=== PATIENT | female | born 1940 | race Caucasian/White ===

== ENCOUNTER → 2016-04-26 | Outpatient (CLI) | payer MEDICARE ==
--- NOTE | 2016-04-30 09:35 | MM ---
Reason for exam: screening (asymptomatic). Last mammogram was performed 10 months ago. History: Patient is postmenopausal, has history of endometrial cancer at age 28, and history of other cancer. Family history of breast cancer in mother at age 80, breast cancer in maternal aunt at age 71, and breast cancer in maternal cousin at age 30. Benign stereotactic core biopsy of the right breast, March 19, 2002. Benign stereotactic core biopsy of the left breast, December 25, 1999. Cyst aspiration of the left breast. 2 core biopsies of the left breast. Core biopsy of the right breast. Excisional biopsy of the left breast. Excisional biopsy of the right breast. Physical Findings: A clinical breast exam by your physician is recommended on an annual basis and results should be correlated with mammographic findings. MG Screening Mammo w CAD Bilateral CC and MLO view(s) were taken. Prior study comparison: July 08, 2015, right breast MG 3d diag mammo w/cad RT. December 05, 2014, bilateral MG screening mammo w CAD. The breast tissue is extremely dense which could obscure a lesion on mammography. Finding: There are typically benign round calcifications. There is no discrete abnormality. No significant changes in finding since July 08, 2015 and December 05, 2014. ASSESSMENT: Benign, BI-RAD 2 RECOMMENDATION: Routine screening mammogram of both breasts in 1 year.
== END | disposition home or self-care (01) ==
LOC: RADMAMWWP 06:58
PROVIDERS: ATTEND Internal Medicine
DX: Z12.31 Encounter for screening mammogram for malignant neoplasm of breast (principal)

== ENCOUNTER → 2016-08-17 | Outpatient (CLI) | payer MEDICARE ==
[2016-08-17 07:23] LABS: Basophils % (A) 1 %; CHCM 33.6; Eosinophils # (A) 0.2 k/uL (0-0.7); Eosinophils % (A) 3 %; HCT 42.3 % (34.0-46.0); HDW 2.76; HGB 14.1 gm/dL (11.4-16.0); Luc # (Auto) 0.19; Luc % (Auto) 3; Lymphocytes # (A) 2.3 k/uL (1.0-4.8); Lymphocytes % (A) 42 %; MCH 29.9 pg (25.0-35.0); MCHC 33.2 g/dL (31.0-37.0); MCV 89.9 fL (80.0-100.0); Mean Platelet Volume 7.2; Monocytes # (A) 0.3 k/uL (0-1.0); Monocytes % (A) 6 %; Neutrophils # (A) 2.5 k/uL (1.3-7.7); Neutrophils % (A) 45 %; RBC 4.71 m/uL (3.80-5.40); RDW 13.9 % (11.5-15.5); WBC 5.4 k/uL (3.8-10.6); WBC (Perox) 5.52
[2016-08-17 07:55] LABS: ALT 23 U/L (9-52); AST 19 U/L (14-36); Alkaline Phosphatase 90 U/L (38-126); Anion Gap 10 mmol/L; Blood Urea Nitrogen 20 mg/dL (7-17); Calcium 9.7 mg/dL (8.4-10.2); Carbon Dioxide 24 mmol/L (22-30); Chloride 112 mmol/L (98-107); Cholesterol 156 mg/dL (<200); Glucose 119 mg/dL (74-99); HDL Cholesterol 53 mg/dL (40-60); Non-African American GFR(MDRD) >60 (>60 ml/min/1.73 sqM); Potassium 4.5 mmol/L (3.5-5.1); Sodium 146 mmol/L (137-145); Total Bilirubin 0.5 mg/dL (0.2-1.3); Total Protein 7.7 g/dL (6.3-8.2); Triglycerides 143 mg/dL (<150)
== END | disposition home or self-care (01) ==
LOC: LABWHC1 06:44
PROVIDERS: ATTEND Internal Medicine
DX: E78.5 Hyperlipidemia, unspecified (principal); I10 Essential (primary) hypertension
CPT/HCPCS: 36415; 80053; 80061; 84439; 84443; 85025

== ENCOUNTER → 2017-10-03 | Outpatient (CLI) | payer MEDICARE ==
--- NOTE | 2017-10-04 08:34 | CT ---
EXAMINATION TYPE: CT chest w con DATE OF EXAM: 10/03/2017 COMPARISON: Chest x-ray from 6 days ago HISTORY: Cough and left side pulmonary mass. CT DLP: 473 mGycm. Automated Exposure Control for Dose Reduction was Utilized. TECHNIQUE: CT scan of the thorax is performed following with IV Contrast, patient injected with 100m l mL of Isovue M300. FINDINGS: LUNGS: Underlying fairly moderate emphysematous changes present with scattered blebs predominantly gao bpleural in location in the bilateral upper lobes. Corresponding to x-ray abnormality there is small to tiny left pleural fluid collection. There is het erogeneous left infrahilar masslike consolidation/probable mass not related to hiatal hernia measurin g 5.8 x 4.2 cm axial image 35 with likely component of postobstructive atelectasis inferior and later al to this. Some central calcifications are seen axial image 32. Mass extends to left hilar level. No chest wall or pleural invasion is definitively seen. Right lung is clear. No additional suspicious n odules or masses are identified. No pneumothorax is seen bilaterally. Tracheobronchial tree is patent . MEDIASTINUM: There are no greater than 1 cm hilar or mediastinal lymph nodes. There are prominent bu t subcentimeter AP window and subcarinal lymph nodes. No cardiomegaly or pericardial effusion is see n. Coronary artery calcification is present which is noted marker for coronary artery disease. OTHER: There is mild to moderate compression type deformity at T6 level. Underlying S-shaped scoliosi s is present. Osseous structures are demineralized. Moderate multilevel spurring is seen. Exaggerated thoracic kyphosis is noted. Nonspecific 9 x 6 mm oval low dense lesion anterior upper abdominal wall axial image 59 is noted. There are healing fractures involving the posterior lateral right fifth thr ough seventh ribs IMPRESSION: 1. Suspicious left infrahilar masslike consolidation probable obstructing endobronchial neoplasm. Con clinical reimbursement specialist bronchoscopy for sampling. Consider PET/CT confirmation. 2. Background moderate underlying emphysematous change with healing posterior lateral right fifth thr ough seventh ribs noted.
== END | disposition home or self-care (01) ==
LOC: RADCTMAIN 15:54
PROVIDERS: ATTEND Internal Medicine
DX: J43.9 Emphysema, unspecified (principal)
CPT/HCPCS: 82565; 84520; 71260; Q9967

== ENCOUNTER → 2017-10-11 | Outpatient (CLI) | payer MEDICARE ==
[2017-10-11 07:34] LABS: Basophils % (A) 1 %; Eosinophils # (A) 0.1 k/uL (0-0.7); Eosinophils % (A) 2 %; HCT 36.2 % (34.0-46.0); HGB 11.1 gm/dL (11.4-16.0); Hypochromasia Slight; Lymphocytes # (A) 1.4 k/uL (1.0-4.8); Lymphocytes % (A) 17 %; MCH 25.7 pg (25.0-35.0); MCHC 30.6 g/dL (31.0-37.0); Mean Platelet Volume 7.1; Monocytes # (A) 0.4 k/uL (0-1.0); Monocytes % (A) 5 %; Neutrophils # (A) 6.3 k/uL (1.3-7.7); Neutrophils % (A) 75 %; Platelet Count 464 k/uL (150-450); RBC 4.31 m/uL (3.80-5.40); RDW 15.1 % (11.5-15.5); WBC 8.4 k/uL (3.8-10.6)
[2017-10-11 07:53] LABS: ALT 20 U/L (9-52); AST 14 U/L (14-36); Albumin 3.4 g/dL (3.5-5.0); Alkaline Phosphatase 127 U/L (38-126); Anion Gap 10 mmol/L; Blood Urea Nitrogen 14 mg/dL (7-17); Calcium 9.2 mg/dL (8.4-10.2); Carbon Dioxide 26 mmol/L (22-30); Chloride 108 mmol/L (98-107); Cholesterol 139 mg/dL (<200); Glucose 128 mg/dL (74-99); HDL Cholesterol 47 mg/dL (40-60); LDL Cholesterol,Calculated 80 mg/dL (0-99); Potassium 4.8 mmol/L (3.5-5.1); Sodium 144 mmol/L (137-145); Total Bilirubin 0.3 mg/dL (0.2-1.3); Total Protein 6.7 g/dL (6.3-8.2); Triglycerides 58 mg/dL (<150)
[2017-10-11 08:04] LABS: T4, Free (Free Thyroxine) 1.04 ng/dL (0.78-2.19)
== END | disposition home or self-care (01) ==
LOC: LABWHC1 06:41
PROVIDERS: ATTEND Internal Medicine
DX: Z00.00 Encounter for general adult medical examination without abnormal findings (principal); E78.5 Hyperlipidemia, unspecified; I10 Essential (primary) hypertension
CPT/HCPCS: 36415; 80053; 80061; 84439; 84443; 85025

== ENCOUNTER 2017-10-12 08:28 | Day surgery (SDC) | payer MEDICARE ==
[~2017-10-12 08:28] MED LIST: Pre Op ABX Message 1 EACH MISC MISCELLANE ONE
[2017-10-12] MEDS ORDERED: MIDAZOLAM 2 MG/2 ML VIAL ONE (11:11)
[2017-10-12] MEDS ORDERED: KETAMINE 10 MG/ML 20 ML VIAL ONE (11:11)
[2017-10-12] MEDS ORDERED: GLYCOPYRROLATE 0.2 MG/ML 2 ML VIAL ONE (11:11)
[2017-10-12] MEDS ORDERED: PROPOFOL 10 MG/ML 20 ML VIAL IV ONE (11:11)
[2017-10-12] MEDS ORDERED: LIDOCAINE 1% INJ 10MG/ML (20 ML MDV) ONE (11:11)
[2017-10-12] MEDS ORDERED: LIDOCAINE 1% INJ 10MG/ML (20 ML MDV) INTRATRACH ONE (11:35)
[2017-10-12] MEDS ORDERED: SODIUM CHLORIDE 0.9% 1,000 ML IV ONE (11:39)
[2017-10-12 12:19] VITALS: BP 130/51; PULSE 94; RESP 19
[2017-10-12] MEDS ORDERED: IV FLUID CONTINUATION 1,000 ML IV ONE (12:21)
--- NOTE | 2017-10-12 14:30 | PCN ---
PROCEDURE NOTE OPERATIVE REPORT: Bronchoscopy, endobronchial biopsy of left lower lobe, brushings, washings from the left lower lobe posterior segment. PREOPERATIVE DIAGNOSIS: Left lung mass. 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 ANESTHESIA USED: IV conscious sedation. PROCEDURE: The patient was prepared according to the bronchoscopy protocol. O2 was applied via nasal cannula. The patient was placed in a supine position, we monitored her O2 saturation continuously, blood pressure was intermittently monitored, and cardiac rhythm was continuously monitored. After adequate IV conscious sedation, the left nares was anesthetized, and the bronchoscope was inserted through the left naris down to the area of the vocal cords. 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 Then the bronchoscope was advanced further down below the vocal cords, though examination was done of the trachea, macho, right upper lobe, right middle lobe, left lower lobe. These were all patent. Then the left side was examined, the left upper lobe was noted to be normal. The lingula was normal including the superior segment and inferior segment. As we went down to the left lower lobe bronchus, there was evidence of endobronchial tumor noted in the posterior segment of the left lower lobe. Multiple endobronchial biopsies were taken of the tumor, brushings were done, washings, and lavage of the posterior segment of the left lower lobe was done. The fluid was sent for different diagnostic studies, brushings were sent for cytology, and the biopsy was sent to pathology. The procedure was well tolerated. Blood loss was negligible, and no evidence of any immediate complications. MMODL / IJN: [id number] /
[2017-10-13 03:36] LABS: Glucose,Whole Blood 106 mg/dL (75-99)
== END 2017-10-12 12:29 | disposition home or self-care (01) ==
LOC: ORWHC2ENDO 08:28
PROVIDERS: ATTEND Internal Medicine
DX: R91.8 Other nonspecific abnormal finding of lung field (principal); J38.3 Other diseases of vocal cords; J44.9 Chronic obstructive pulmonary disease, unspecified; I10 Essential (primary) hypertension; E78.2 Mixed hyperlipidemia; Z80.0 Family history of malignant neoplasm of digestive organs; Z80.3 Family history of malignant neoplasm of breast; Z80.6 Family history of leukemia; F17.210 Nicotine dependence, cigarettes, uncomplicated; Z79.82 Long term (current) use of aspirin; Z79.899 Other long term (current) drug therapy; Z88.8 Allergy status to other drugs, medicaments and biological substances
CPT/HCPCS: 88104; 88108; 88305; 87070; 87205; 31625; 31623; 31624; J2001; 94640

== ENCOUNTER → 2017-10-22 | Outpatient (CLI) | payer MEDICARE ==
--- NOTE | 2017-10-24 10:47 | PE ---
Nuclear medicine PET/CT HISTORY: Solitary pulmonary nodule, initial Patient received 11.4 mCi F-18 FDG intravenously in delayed scanning was performed from the skull bas e to the mid thighs. Localization and attenuation correction CT scan was performed. Correlation CT chest 10/03/2017 Neck and chest: No cervical adenopathy. There is a sizable left pleural effusion which may be loculat ed and has developed in the interval. Uptake is noted at the left hilar region, left lower lobe with SUV approximately 9-10, there is an air-fluid level, pockets of air present in the left lower lobe po ssibly due to necrotic tumor, difficult to exclude abscess. Emphysematous changes are noted incidenta lly. Coronary artery calcifications are present. Abdomen pelvis show no suspicious hypermetabolic uptake. There is no evident adrenal mass or retroper itoneal adenopathy. No liver mass. Postop changes are noted at the sigmoid colon. Uterus not seen. Osseous structures show nonunited fractures at the seventh and sixth ribs from old fracture of the fi fth rib on the right laterally. Multilevel uptake within the visualized thoracic and lumbar spine, pe lvis, SUV approximately 3-4, indeterminate. IMPRESSION: Findings compatible with lung carcinoma left lower lobe, interval pleural effusion and po ssible necrosis as described. Additional findings above.
== END | disposition home or self-care (01) ==
LOC: RADPETMAIN 07:20
PROVIDERS: ATTEND Internal Medicine
DX: J90 Pleural effusion, not elsewhere classified (principal); R91.8 Other nonspecific abnormal finding of lung field; S22.41XA Multiple fractures of ribs, right side, initial encounter for closed fracture; I25.10 Atherosclerotic heart disease of native coronary artery without angina pectoris
CPT/HCPCS: 78815; A9552

== ENCOUNTER 2017-10-26 09:34 | Inpatient (IN) | payer MEDICARE ==
[2017-10-26 10:46] LABS: Albumin 2.4 g/dL (3.5-5.0); Calcium 8.7 mg/dL (8.4-10.2); Potassium 3.7 mmol/L (3.5-5.1); Total Bilirubin 0.6 mg/dL (0.2-1.3); Total Protein 5.4 g/dL (6.3-8.2)
[2017-10-26 10:55] LABS: Anisocytosis Slight; Hypochromasia Moderate; Prothrombin Time 9.8 sec (9.0-12.0)
[2017-10-26 10:59] LABS: Partial Thromboplastin Time 20.1 sec (22.0-30.0)
[2017-10-26 11:07] LABS: HCT 34.8 % (34.0-46.0); HGB 10.9 gm/dL (11.4-16.0); MCH 26.1 pg (25.0-35.0); MCHC 31.3 g/dL (31.0-37.0); MCV 83.4 fL (80.0-100.0); Mean Platelet Volume 8.2; Platelet Count 570 k/uL (150-450); RBC 4.17 m/uL (3.80-5.40); RDW 16.4 % (11.5-15.5); WBC 23.7 k/uL (3.8-10.6)
--- NOTE | 2017-10-26 11:09 | XR ---
EXAMINATION TYPE: XR chest 2V DATE OF EXAM: 10/26/2017 COMPARISON: Prior chest x-ray 10/25/2017 and PET/CT 10/22/2017 HISTORY: Pleural effusion, difficulty breathing TECHNIQUE: Frontal and lateral views of the chest are obtained. FINDINGS: Findings similar to prior exam. Sizable left pleural effusion and associated atelectatic c hanges are present with associated mass left lower lobe. Air-fluid levels compatible with possible ne crosis of patient's tumor, difficult to exclude lung abscess. No evident pneumothorax. Old right-side d rib fractures are present, there is a spinal curvature. IMPRESSION: Findings compatible with patient's history of lung carcinoma, pleural effusion and atele ctasis.
[2017-10-26 11:37] LABS: Band Neutrophils % 2 %; Lymphocytes # (M) 1.66 k/uL (1.0-4.8); Monocytes # (M) 0.95 k/uL (0-1.0); Neutrophils % (M) 87 %; Nucleated Red Blood Cells 0 /100 WBC (0-0); Polychromasia Present; Total Cells Counted 100; Toxic Vacuolation Present
[2017-10-26 11:38] LABS: Poikilocytosis (M) Present
[2017-10-26] MEDS ORDERED: PIPERACILLIN-TAZOBACTAM 3.375 GM in DEXTROSE/WATER 1 50ML.BAG IVPB STA (12:27)
[2017-10-26] MEDS ORDERED: ALBUTEROL NEBULIZED 2.5 MG/3 ML INHALATION STA (12:34)
[2017-10-26] MEDS ORDERED: IPRATROPIUM 0.5 MG/2.5 ML NEBU INHALATION STA (12:35)
[2017-10-26] MEDS ORDERED: FUROSEMIDE 10 MG/ML 4 ML VIAL IV STA (12:35)
[2017-10-26] MEDS ORDERED: methylPREDNISolone SOD SUCCI 125 MG/2 ML VIAL IV STA (12:35)
[2017-10-26 12:37] LABS: Creatine Kinase <20 U/L (30-135)
[2017-10-26] MEDS ORDERED: IPRATROPIUM-ALBUTEROL 3 ML NEB INHALATION PRN (12:52)
--- NOTE | 2017-10-26 12:52 | ED ---
SOB HPI - General Chief Complaint: Shortness of Breath Stated Complaint: SOB Time Seen by Provider: 10/26/17 09:47 Source: patient Mode of arrival: wheelchair Limitations: no limitations - History of Present Illness Initial Comments: 77 years O female comes in with the shortness of breath unfortunately she has a lung cancer now she has a fluid on her lungs and she said Dr. Jacques or was supplemented to thoracentesis. She denies any chest pain right now she denies any pleuritic chest pain not sure about the fever high blood pressure has been low she said she been feeling generally weak and no abdominal pain no frequency urgency dysuria TIA - Related Data Home Medications Medication Instructions Recorded Confirmed Ezetimibe [Zetia] 10 mg PO DAILY 10/15/13 10/26/17 Albuterol Sulfate [Proair Hfa] 2 puff INHALATION RT-Q6H PRN 10/26/17 10/26/17 Aspirin EC [Ecotrin Low Dose] 81 mg PO HS 10/26/17 10/26/17 Gemfibrozil [Lopid] 600 mg PO AC-BID 10/26/17 10/26/17 Levofloxacin [Levaquin] 500 mg PO DAILY 10/26/17 10/26/17 amLODIPine [Norvasc] 10 mg PO DAILY 10/26/17 10/26/17 predniSONE See Taper PO DAILY 10/26/17 10/26/17 Allergies Allergy/AdvReac Type Severity Reaction Status Date / Time benazepril HCl [From Lotrel] Allergy Swelling Verified 10/26/17 10:13 Review of Systems ROS Statement: Those systems with pertinent positive or pertinent negative responses have been documented in the HPI. ROS Other: All systems not noted in ROS Statement are negative. Past Medical History Past Medical History: Hyperlipidemia, Hypertension Additional Past Medical History / Comment(s): possible lung ca History of Any Multi-Drug Resistant Organisms: None Reported Past Surgical History: Cholecystectomy, Hysterectomy Additional Past Surgical History / Comment(s): recent lung biopsy Past Psychological History: No Psychological Hx Reported Smoking Status: Former smoker Past Alcohol Use History: Occasional Past Drug Use History: None Reported General Exam - General Exam Comments Initial Comments: General: The patient is awake and alert, in mild distress from respiratory status as well as his 50 Skin: Skin is warm and dry and no rashes or lesions are noted. Eye: Pupils are equal, round and reactive to light, extra-ocular movements are intact; there is normal conjunctiva bilaterally. Ears, nose, mouth and throat: There are moist mucous membranes and no oral lesions. Neck: The neck is supple, there is no tenderness or JVD. Cardiovascular: There is a regular rate and rhythm Respiratory: To auscultation bilateral, severe COPD with some crackles Gastrointestinal: Soft, non-distended, non-tender abdomen without masses or organomegaly noted. There is no rebound or guarding present. Bowel sounds are unremarkable. Back: There is no tenderness to palpation in the midline. There is no obvious deformity. Musculoskeletal: Normal ROM, no tenderness, There is no pedal edema. There is no calf tenderness or swelling. No cords were appreciated. Neurological: CN II-XII intact, Cranial nerves III through XII are intact. There are no obvious motor or sensory deficits. Coordination appears grossly intact. Speech is normal. Psychiatric: Cooperative, appropriate mood & affect, normal judgment. Limitations: no limitations Course Vital Signs 10/26/17 10/26/17 10/26/17 09:41 11:43 12:28 Temperature 97.5 F L Pulse Rate 82 78 81 Respiratory 18 20 20 Rate Blood Pressure 92/57 97/53 101/56 O2 Sat by Pulse 93 L 95 92 L Oximetry KG is normal sinus ventricular rate is 84 CA interval is 144 QRS duration is 94 QT/QTc is 360/427 noticed some T-wave flattening in lead 1 noticed some artifact interfering with the interpretation no STEMI noticed Medical Decision Making - Lab Data Result diagrams: 10/26/17 10:25 10/26/17 10:25 Lab Results 10/26/17 10/26/17 10/26/17 Range/Units 10:25 10:25 10:25 WBC 23.7 H (3.8-10.6) k/uL RBC 4.17 (3.80-5.40) m/uL Hgb 10.9 L (11.4-16.0) gm/dL Hct 34.8 (34.0-46.0) % MCV 83.4 (80.0-100.0) fL MCH 26.1 (25.0-35.0) pg MCHC 31.3 (31.0-37.0) g/dL RDW 16.4 H (11.5-15.5) % Plt Count 570 H (150-450) k/uL Neutrophils % (Manual) 87 % Band Neutrophils % 2 % Lymphocytes % (Manual) 7 % Monocytes % (Manual) 4 % Neutrophils # (Manual) 21.00 H (1.3-7.7) k/uL Lymphocytes # (Manual) 1.66 (1.0-4.8) k/uL Monocytes # (Manual) 0.95 (0-1.0) k/uL Nucleated RBCs 0 (0-0) /100 WBC Manual Slide Review Performed Toxic Vacuolation Present Polychromasia Present Hypochromasia Moderate Poikilocytosis (manual Present Anisocytosis Slight PT 9.8 (9.0-12.0) sec INR 1.0 (<1.2) APTT 20.1 L (22.0-30.0) sec Sodium 142 (137-145) mmol/L Potassium 3.7 (3.5-5.1) mmol/L Chloride 110 H (98-107) mmol/L Carbon Dioxide 16 L (22-30) mmol/L Anion Gap 16 mmol/L BUN 50 H (7-17) mg/dL Creatinine 0.91 (0.52-1.04) mg/dL Est GFR (CKD-EPI)AfAm 70 (>60 ml/min/1.73 sqM) Est GFR (CKD-EPI)NonAf 61 (>60 ml/min/1.73 sqM) Glucose 192 H (74-99) mg/dL Calcium 8.7 (8.4-10.2) mg/dL Total Bilirubin 0.6 (0.2-1.3) mg/dL AST 28 (14-36) U/L ALT 32 (9-52) U/L Alkaline Phosphatase 215 H (38-126) U/L Total Protein 5.4 L (6.3-8.2) g/dL Albumin 2.4 L (3.5-5.0) g/dL Critical Care Time Total Critical Care Time: 30 Critical Care Time: Syringa respiratory status and now elevated white count there is a question of sepsis at that and supported with a low blood pressure as well she be getting broad-spectrum antibiotic after blood cultures and also noticed here to is a 16 consistent with a metabolic acidosis I discussed that with the Dr. Lona Zamorano recommended we admit him under Dr. Pratt and obviously he is can be consult patient be for patient was anticipating a thoracentesis by Dr. Jacques or for now to support her COPD she be getting IV steroids and inhaled steroids and inhaled bronchodilators Disposition Clinical Impression: Metabolic acidosis, Hypotension Disposition: ADMITTED IP TO THIS HOSP Condition: Good Referrals: Karol Jacques MD [Primary Care Provider] - 1-2 days
[2017-10-26 13:28] LABS: Creatine Kinase MB 1.6 ng/mL (0.0-2.4); Troponin I <0.012 ng/mL (0.000-0.034)
[2017-10-26 14:57] VITALS: BMI 29.2
[2017-10-26] MEDS ORDERED: DILTIAZEM 50 MG in SODIUM CHLORIDE 0.9% 40 ML IV SCH ×4 (16:15)
--- NOTE | 2017-10-26 16:31 | P.CNPUL ---
History of Present Illness Reason for consult: dyspnea, lung mass History of present illness: A 77-year-old female patient presented to MRSA problem because of worsening shortness of breath. No chest pain. No pleurisy. She felt feverish and she was progressively getting weak over the past few days. In the ED, the patient a temperature of 97.5, pulse rate of 81 which was pulse ox 92% on room air. Her white cell, was 23.7. TPN was up to 50 with a creatinine of 0.9. She was however in metabolic acidosis with a positive anion gap and her bicarb level was at 16. Chest x-ray revealed left lung capacity probably a combination of atelectatic changes along with a loculated left-sided pleural effusion. There is also some air-fluid levels compatible with necrotizing pneumonia/abscess formation. Old rib fractures were seen on the right. Patient was started on IV Zosyn and the patient was admitted to the floor and a pulmonary consultation was requested. I saw this patient in the oncology unit. The patient was found to be also nature fibrillation with rapid ventricular response. The patient will be scheduled to telemetry unit for Cardizem drip and rate control. A echo cardiac exam will also be ordered. This patient is known to our service and she follows up with Dr. Jacques outpatient patient basis. She is known to have COPD. The patient has an FEV1 of 1.48 L. She also has hypertension, mixed hyperlipidemia and most recently she was diagnosed having it, cell carcinoma of the lung. The patient was found to have a left lung mass on a chest x-ray that was on our office back in September 2017 and this was followed up by a CAT scan of the chest that showed a suspicious left infrahilar mass with obstruction/endobronchial narrowing in the left lower lobe and the mass was measuring 5.3 x 4.2 cm in size in addition to some atelectatic changes and left lung base. Based on this, a bronchoscopy was done and the endobronchial biopsies from the left lower lobe showed squamous cell carcinoma. The PET scan that was done for staging purposes on 10/22/2017 showed a sizable left-sided pleural effusion that was loculated along the left lateral chest area that had developed an interval compared to the previous CAT scan on 10/03/2017. There was also uptake noted in the left hilar region, left lower lobe with an SUV of 9-10. There was also air-fluid level and pockets of air present in the left lower lobe possibly due to necrotic tumor although the possibility of postobstructive pneumonia/abscess formation cannot be completely ruled out. Bilateral emphysematous changes were also noted. The patient also had nonunited fractures at the seventh and the sixth rib and the fifth rib on the right laterally. No other uptake within the skeletal system. Note that the patient was already seen at for a surgical evaluation and she was told that she was not a surgical candidate due to locally advanced disease. Review of Systems Constitutional: Denies weight loss, denies fatigue, no night sweats, no fever, no chills. Cardiovascular: Denies palpitations, denied chest pain or chest pressure, denies any edema. GI: Denies nausea vomiting abdominal pain diarrhea or constipation. Genitourinary: No dysuria and no frequency no urgency. She had previous history of UTI. Neurologic: Denies weakness, confusion, dizziness, or numbness. Musculoskeletal: Denies weakness arthralgia or myalgia Skin: Denies any skin lesions or rashes. Endocrine: No polydipsia, no polyuria, no heat or cold sensitivity. Pulmonary: As noted in HPI.Worsening shortness of breath as reported in the HPI Hematologic: No clotting bleeding or bruising Psychiatric: No symptoms of active depression Past Medical History Past Medical History: Cancer, GERD/Reflux, Hyperlipidemia, Hypertension, Osteoarthritis (OA), Skin Disorder Additional Past Medical History / Comment(s): Squamous for carcinoma of the lung , locally advanced at least stage III, left-sided pleural effusion, hyperlipidemia, hypertension, COPD, recurrent UTIs, history of psoriasis, colonic polyps, history of benign bilaterally breast lesions with previous lumpectomies, osteoarthritis History of Any Multi-Drug Resistant Organisms: None Reported Past Surgical History: Cholecystectomy, Hysterectomy Additional Past Surgical History / Comment(s): 10/13/17 bronchoscopy with BAL/bx/ brushings, partial colectomy, bilateral multiple breast lumpectomies/biopsies all benign, colonoscopy/benign polypectomy. Past Anesthesia/Blood Transfusion Reactions: No Reported Reaction Smoking Status: Former smoker - Past Family History Father Family Medical History: Cancer Additional Family Medical History / Comment(s): Father had leukemia. Mother Family Medical History: Cancer Additional Family Medical History / Comment(s): Mother had breast cancer. Sister(s) Family Medical History: Cancer Additional Family Medical History / Comment(s): Sister had colon cancer. Medications and Allergies Home Medications Medication Instructions Recorded Confirmed Type Ezetimibe [Zetia] 10 mg PO DAILY 10/15/13 10/26/17 History Albuterol Sulfate [Proair Hfa] 2 puff INHALATION RT-Q6H PRN 10/26/17 10/26/17 History Aspirin EC [Ecotrin Low Dose] 81 mg PO HS 10/26/17 10/26/17 History Gemfibrozil [Lopid] 600 mg PO AC-BID 10/26/17 10/26/17 History Levofloxacin [Levaquin] 500 mg PO DAILY 10/26/17 10/26/17 History amLODIPine [Norvasc] 10 mg PO DAILY 10/26/17 10/26/17 History predniSONE See Taper PO DAILY 10/26/17 10/26/17 History Allergies Allergy/AdvReac Type Severity Reaction Status Date / Time benazepril HCl [From Lotrel] Allergy Swelling Verified 10/26/17 10:13 Physical Exam Vitals: Vital Signs Temp Pulse Resp BP Pulse Ox 10/26/17 13:31 80 18 110/69 98 10/26/17 13:00 81 10/26/17 12:41 81 10/26/17 12:28 81 20 101/56 92 L 10/26/17 11:43 78 20 97/53 95 10/26/17 09:41 97.5 F L 82 18 92/57 93 L Intake and Output 10/25/17 10/26/17 10/26/17 22:59 06:59 14:59 Other: Weight 68 kg Appearance, comfortable no acute distress HEENT: Anicteric sclerae, pink and moist conjunctivae. Extraocular movements intact, pupils are reactive to light they are round and equal. External inspection of ears and nose showed normal mucosa. Oral mucosa, soft and hard palate tongue and posterior pharynx are intact. Neck: Supple no neck masses, no JVD, no thyroid enlargement, no adenopathy. Lungs: Symmetrical expansion,Diminished breath sounds and dullness at the left base CVS: Regular rate and rhythm, normal S1 and S2, no gallops, no murmur, no rubs. Abdomen: Soft, nontender, no megaly, no rebound, no guarding, positive bowel sounds. Extremities: No clubbing, no edema, no cyanosis, 2+ pulses in upper and lower extremities. Musculoskeletal: Muscle strength and tone normal. Neurologic: Alert and oriented 3, normal affect, no focal neurologic deficits. Examination of the skin revealed no evidence of significant rashes, suspicious appearing nevi or other concerning lesions. Results - Laboratory Findings CBC and BMP: 10/26/17 10:25 10/26/17 10:25 PT/INR, D-dimer PT 9.8 sec (9.0-12.0) 10/26/17 10:25 INR 1.0 (<1.2) 10/26/17 10:25 Abnormal lab findings: Abnormal Labs 10/26/17 10/26/17 10/26/17 10:25 10:25 10:25 WBC 23.7 H Hgb 10.9 L RDW 16.4 H Plt Count 570 H Neutrophils # (Manual) 21.00 H APTT Chloride 110 H Carbon Dioxide 16 L BUN 50 H Glucose 192 H Alkaline Phosphatase 215 H Total Creatine Kinase <20 L Total Protein 5.4 L Albumin 2.4 L 10/26/17 10:25 WBC Hgb RDW Plt Count Neutrophils # (Manual) APTT 20.1 L Chloride Carbon Dioxide BUN Glucose Alkaline Phosphatase Total Creatine Kinase Total Protein Albumin - Diagnostic Findings Chest x-ray: image reviewed CT scan - chest: image reviewed Assessment and Plan Plan: Assessment 1 squamous cell carcinoma of the lung, TNM stage III at least, This is a recent diagnosis was established few weeks back and a follow-up PET scan showed significant progression with development of worsening left lower lobe consolidation, air fluid level and a loculated pleural effusion on the left lateral chest area. Rule out postobstructive pneumonia with abscess formation and a parapneumonic effusion. Rule out necrosis related to malignancy with malignant pleural effusion. Note that the patient's PET scan was compared to the previous CAT scan that was done 3 weeks ago in September 2017 and there is obvious progression suspicious for the above-mentioned possibilities. Currently on IV Zosyn. Infection is also favored as the patient has developed some leukocytosis and anion gap metabolic acidosis 2 COPD with FEV1 of 1.4 L at baseline 3 new onset atrial fibrillation with rapid ventricular response 3 acute hypoxic respiratory failure secondary to above 5 hyperlipidemia 6 hypertension 7 endobronchial tumor occupying the posterior segment of the left lower lobe, raising the suspicion for a development of a post obstructive pneumonia/abscess formation. 8 leukocytosis secondary to above Plan Continue IV Zosyn and Levaquin. DuoNeb about treatments around the clock. Sputum Gram stain and culture. Transfer this patient to telemetry and start the patient a Cardizem drip for rate control. Obtain echocardiogram. Start bicarb drip at 75 mL an hour and monitor the bicarb levels. May need another bronchoscopy. The pleural fluid itself is loculated. We'll discuss the feasibility of doing a ultrasound-guided thoracentesis of the lung. Left-sided pleural effusion with interventional radiology for diagnostic and therapeutic purposes. Stopped IV Solu-Medrol. We'll continue to follow. Prognosis poor.
[2017-10-26] MEDS ORDERED: SODIUM CHLORIDE 0.9% 500 ML IV ONE (16:59)
[2017-10-26] MEDS ORDERED: methylPREDNISolone SOD SUCCI 125 MG/2 ML VIAL IV SCH (18:00)
[2017-10-26] MEDS: LEVOFLOXACIN 500 MG TAB PO SCH (19:17)
[2017-10-26] MEDS: WATER FOR INJECTION, STERILE 1,000 ML with SODIUM ACETATE 150 MEQ IV SCH ×2 (19:46)
[2017-10-26] MEDS: HEPARIN SOD,PORK IN 0.45% NACL 25,000 UNIT in 0.45% NACL 1 500ML.BAG IV SCH (20:24)
[2017-10-26] MEDS: BUDESONIDE 0.5 MG/2 ML NEBU INHALATION SCH (20:36)
[2017-10-26] MEDS: ALPRAZolam 0.25 MG TAB PO PRN (21:07)
[2017-10-26] MEDS: LACTULOSE 20 GM/30 ML CUP PO PRN (21:07)
[2017-10-26] MEDS: GEMFIBROZIL 600 MG TAB PO SCH (21:08)
[2017-10-26] MEDS ORDERED: ONDANSETRON 4 MG/2 ML VIAL IVP PRN (21:08)
[2017-10-26] MEDS: ASPIRIN 81 MG PO SCH (21:08)
[2017-10-26] MEDS: PIPERACILLIN-TAZOBACTAM 3.375 GM in DEXTROSE/WATER 1 50ML.BAG IVPB SCH (21:10)
[2017-10-26] MEDS: amLODIPine 10 MG TAB PO SCH (22:23)
[2017-10-27] MEDS: PIPERACILLIN-TAZOBACTAM 3.375 GM in DEXTROSE/WATER 1 50ML.BAG IVPB SCH ×3 (03:56→20:27)
[2017-10-27] MEDS: GEMFIBROZIL 600 MG TAB PO SCH ×2 (06:31→18:00)
[2017-10-27] MEDS: BUDESONIDE 0.5 MG/2 ML NEBU INHALATION SCH ×2 (08:02→20:35)
[2017-10-27] MEDS: WATER FOR INJECTION, STERILE 1,000 ML with SODIUM ACETATE 150 MEQ IV SCH ×4 (09:31→20:47)
[2017-10-27] MEDS: EZETIMIBE 10 MG TAB PO SCH (09:32)
[2017-10-27] MEDS: amLODIPine 10 MG TAB PO SCH (09:32)
--- NOTE | 2017-10-27 09:36 | P.CRDCN ---
History of Present Illness Consult date: 10/27/17 Requesting physician: Warren Pratt Consult reason: atrial fibrillation Chief complaint: Shortness of breath History of present illness: This is a pleasant 77-year-old female with a history of hyperlipidemia , hypertension, recent diagnosis of lung cancer, more than 60 year pack per day smoker, history of diverticulitis with a partial colectomy, GERD, presents to the hospital on this occasion with symptoms of shortness of breath. According to the patient, she follows with Dr. Guerrero in the office, and he had mentioned something about a possible thoracentesis. Her chest x-ray on admission revealed findings compatible with patient's history of lung carcinoma, pleural effusion and atelectasis. There is a sizable left pleural effusion noted. EKG on admission here showed a normal sinus rhythm with nonspecific ST-T wave changes. An EKG showed atrial fibrillation with a rapid ventricular response. This morning the patient is back in a normal sinus rhythm. Occasional PVCs and PACs are noted. Patient denies any prior history of atrial fibrillation. At pressure on arrival here 92/50 with a heart rate in the 80s, 93% on room air. Blood pressure this morning 126/66 with a heart rate in the 80s, 93% on 2 L of oxygen. White blood cell count 23.7, hemoglobin 10.9, platelet count 570. Sodium 142, potassium 3.7, BUN 50, creatinine 0.9. Troponin 0.012. BNP level 1700. At the time of my examination this morning, patient is quite short of breath, she just returned from going to the bathroom. She denies any palpitations, no chest discomfort. 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 Past Anesthesia/Blood Transfusion Reactions: No Reported Reaction Smoking Status: Former smoker - Past Family History Father Family Medical History: Cancer Additional Family Medical History / Comment(s): Father had leukemia. Mother Family Medical History: Cancer Additional Family Medical History / Comment(s): Mother had breast cancer. Sister(s) Family Medical History: Cancer Additional Family Medical History / Comment(s): Sister had colon cancer. Medications and Allergies Home Medications Medication Instructions Recorded Confirmed Type Ezetimibe [Zetia] 10 mg PO DAILY 10/15/13 10/26/17 History Albuterol Sulfate [Proair Hfa] 2 puff INHALATION RT-Q6H PRN 10/26/17 10/26/17 History Aspirin EC [Ecotrin Low Dose] 81 mg PO HS 10/26/17 10/26/17 History Gemfibrozil [Lopid] 600 mg PO AC-BID 10/26/17 10/26/17 History Levofloxacin [Levaquin] 500 mg PO DAILY 10/26/17 10/26/17 History amLODIPine [Norvasc] 10 mg PO DAILY 10/26/17 10/26/17 History predniSONE See Taper PO DAILY 10/26/17 10/26/17 History Allergies Allergy/AdvReac Type Severity Reaction Status Date / Time benazepril HCl [From Lotrel] Allergy Swelling Verified 10/26/17 10:13 Physical Exam Vitals: Vital Signs Temp Pulse Pulse Resp BP BP Pulse Ox 10/27/17 08:20 92 10/27/17 08:05 88 95 10/27/17 04:00 97.0 F L 86 18 127/66 93 L 10/27/17 00:00 97.4 F L 83 18 107/63 92 L 10/26/17 20:00 97.0 F L 144 H 18 105/45 96 10/26/17 16:00 97.1 F L 143 H 20 85/50 94 L 10/26/17 15:20 143 H 18 10/26/17 13:31 80 18 110/69 98 10/26/17 13:00 81 10/26/17 12:41 81 10/26/17 12:28 81 20 101/56 92 L 10/26/17 11:43 78 20 97/53 95 10/26/17 09:41 97.5 F L 82 18 92/57 93 L Intake and Output 10/26/17 10/27/17 10/27/17 22:59 06:59 14:59 Intake Total 943.273 Balance 943.273 Intake: Intake, IV Titration 943.273 Amount Diltiazem 50 mg In Sodium 11.417 Chloride 0.9% 40 ml @ Per Protocol IV .Q0M [facility] Rx#:[id number] Heparin Sod,Pork in 0.45% 121.856 NaCl 25,000 unit In 0.45 % NaCl 1 500ml.bag @ 12 UNITS/KG/HR 16.32 mls/hr IV .Q24H [facility] Rx#: [id number] Piperacillin-Tazobactam 3 50 .375 gm In Dextrose/Water 1 50ml.bag @ 12.5 mls/hr IVPB Q8H [facility] Rx#: [id number] Sodium Chloride 0.9% 500 160 ml @ 999 mls/hr IV .Q31M [facility] Rx#:[id number] Water For Injection, 600 Sterile 1,000 ml @ 75 mls /hr IV .[id number] [facility] with Sodium Acetate 150 meq Rx #:[id number] Other: Voiding Method Toilet Toilet # Voids 2 Weight 59.6 kg PHYSICAL EXAMINATION: GENERAL: 77-year-old female in mild distress with her breathing this morning. HEENT: Head is atraumatic, normocephalic. Pupils equal, round. Sclera anicteric. Conjunctiva are clear. Mucous membranes of the mouth are moist. Neck is supple. There is no elevated jugular venous pressure.] bruit is heard. HEART EXAMINATION: Heart S1, S2 normal. No murmur or gallop heard. CHEST EXAMINATION: Lungs reveal scattered coarse wheezing with diminished air entry left greater than right. ABDOMEN: Soft, nontender. Bowel sounds are heard. No organomegaly noted. EXTREMITIES: 2+ peripheral pulses with trace evidence of peripheral edema and no calf tenderness noted. NEUROLOGIC patient is awake, alert and oriented ?-3. . Results 10/26/17 10:25 10/26/17 10:25 Cardiac Enzymes 10/26/17 10/26/17 Range/Units 10:25 10:25 AST 28 (14-36) U/L CK-MB (CK-2) 1.6 (0.0-2.4) ng/mL Troponin I <0.012 (0.000-0.034) ng/mL Coagulation 10/26/17 10/27/17 Range/Units 10:25 02:52 PT 9.8 (9.0-12.0) sec APTT 20.1 L 22.5 (22.0-30.0) sec CBC 10/26/17 Range/Units 10:25 WBC 23.7 H (3.8-10.6) k/uL RBC 4.17 (3.80-5.40) m/uL Hgb 10.9 L (11.4-16.0) gm/dL Hct 34.8 (34.0-46.0) % Plt Count 570 H (150-450) k/uL Comprehensive Metabolic Panel 10/26/17 Range/Units 10:25 Sodium 142 (137-145) mmol/L Potassium 3.7 (3.5-5.1) mmol/L Chloride 110 H (98-107) mmol/L Carbon Dioxide 16 L (22-30) mmol/L BUN 50 H (7-17) mg/dL Creatinine 0.91 (0.52-1.04) mg/dL Glucose 192 H (74-99) mg/dL Calcium 8.7 (8.4-10.2) mg/dL AST 28 (14-36) U/L ALT 32 (9-52) U/L Alkaline Phosphatase 215 H (38-126) U/L Total Protein 5.4 L (6.3-8.2) g/dL Albumin 2.4 L (3.5-5.0) g/dL Current Medications Generic Name Dose Route Start Last Admin Trade Name Freq PRN Reason Stop Dose Admin Albuterol/Ipratropium 3 ml 10/26/17 12:52 10/27/17 08:02 Duoneb 0.5 Mg-3 Mg/3 Ml Soln INHALATION 3 ml RT-Q4H PRN Administration Shortness Of Breath Or Wheezing Alprazolam 0.25 mg 10/26/17 20:42 10/26/17 21:07 Xanax PO 0.25 mg TID PRN Administration Agitation or Acute Anxiety Amlodipine Besylate 10 mg 10/26/17 17:15 10/26/17 22:23 Norvasc PO Not Given DAILY [facility] Aspirin 81 mg 10/26/17 21:00 10/26/17 21:08 Aspirin PO 81 mg HS [facility] Administration Budesonide 0.5 mg 10/26/17 20:00 10/27/17 08:02 Pulmicort INHALATION 0.5 mg RT-BID [facility] Administration Ezetimibe 10 mg 10/27/17 09:00 Zetia PO DAILY [facility] Gemfibrozil 600 mg 10/26/17 17:30 10/27/17 06:31 Lopid PO 600 mg AC-BID [facility] Administration Piperacillin/Tazobactam/ 50 mls @ 12.5 mls/hr 10/26/17 20:00 10/27/17 03:56 Dextrose 3.375 gm/ IV Solution IVPB 12.5 mls/hr Q8H [facility] Administration Diltiazem HCl 50 mg/ Sodium 50 mls @ 0 mls/hr 10/26/17 16:15 10/26/17 23:30 Chloride IV 0 mg/hr .Q0M [facility] 0 mls/hr Titration Protocol Per Protocol Sodium Acetate 150 meq/ 1,075 mls @ 75 mls/hr 10/26/17 17:00 10/26/17 19:46 Sterile Water IV 75 mls/hr .[id number] [facility] Administration Heparin Sodium/Sodium Chloride 500 mls @ 16.32 mls/hr 10/26/17 19:45 03:52 25,000 unit/ Sodium Chloride IV 15 units/kg/hr .Q24H [facility] 20.4 mls/hr Titration Protocol 12 UNITS/KG/HR Lactulose 20 gm 10/26/17 20:43 10/26/17 21:07 Cephulac PO 20 gm DAILY PRN Administration Constipation Levofloxacin 500 mg 10/26/17 14:00 10/26/17 19:17 Levaquin PO 11/04/17 14:01 500 mg DAILY@1400 [facility] Administration Ondansetron HCl 4 mg 10/26/17 21:08 Zofran IVP Q6HR PRN Nausea And Vomiting Intake and Output 10/26/17 10/27/17 10/27/17 22:59 06:59 14:59 Intake Total 943.273 Balance 943.273 Intake: Intake, IV Titration 943.273 Amount Diltiazem 50 mg In Sodium 11.417 Chloride 0.9% 40 ml @ Per Protocol IV .Q0M [facility] Rx#:[id number] Heparin Sod,Pork in 0.45% 121.856 NaCl 25,000 unit In 0.45 % NaCl 1 500ml.bag @ 12 UNITS/KG/HR 16.32 mls/hr IV .Q24H [facility] Rx#: [id number] Piperacillin-Tazobactam 3 50 .375 gm In Dextrose/Water 1 50ml.bag @ 12.5 mls/hr IVPB Q8H [facility] Rx#: [id number] Sodium Chloride 0.9% 500 160 ml @ 999 mls/hr IV .Q31M [facility] Rx#:[id number] Water For Injection, 600 Sterile 1,000 ml @ 75 mls /hr IV .[id number] [facility] with Sodium Acetate 150 meq Rx #:[id number] Other: Voiding Method Toilet Toilet # Voids 2 Weight 59.6 kg 10/26/17 10:25 10/26/17 10:25 EKG Interpretations (text) Initial EKG showed normal sinus rhythm with nonspecific ST-T wave changes. Subsequent EKG showed atrial fibrillation with a rapid ventricular response. Assessment and Plan Plan: Assessment and plan #1 atrial fibrillation with rapid ventricular response, new onset, paroxysmal. Patient is currently on IV heparin and Cardizem. #2 new diagnosis of lung cancer #3 left pleural effusion #4 hypertension #5 hyperlipidemia #6 GERD #7 greater than 60 year one pack per day smoking history #8 diverticulitis with partial colectomy Plan We will obtain an echocardiogram with Doppler study. Discontinue IV Cardizem, discontinue Norvasc, start the patient on verapamil by mouth. I also discussed with the patient the need for anticoagulation for stroke prevention. We will look into one of the newer anticoagulants. We will also E4 and TSH level. Further recommendations to follow. DNP note has been reviewed, I agree with a documented findings and plan of care. Patient was seen and examined.
[2017-10-27] MEDS: VERAPAMIL 40 MG TAB PO SCH ×3 (10:23→20:34)
[2017-10-27] MEDS: ALPRAZolam 0.25 MG TAB PO PRN ×2 (11:42→17:56)
[2017-10-27 11:53] LABS: LDH 795 U/L (313-618); Total Protein 5.4 g/dL (6.3-8.2)
[2017-10-27] MEDS: IPRATROPIUM-ALBUTEROL 3 ML NEB INHALATION SCH ×4 (12:00→23:35)
--- NOTE | 2017-10-27 12:20 | P.PN ---
Subjective Progress Note Date: 10/27/17 Principal diagnosis: Squamous cell carcinoma of the lung, TNM stage III with postobstructive pneumonia and pleural effusion. A 77-year-old female patient presented to MRSA problem because of worsening shortness of breath. No chest pain. No pleurisy. She felt feverish and she was progressively getting weak over the past few days. In the ED, the patient a temperature of 97.5, pulse rate of 81 which was pulse ox 92% on room air. Her white cell, was 23.7. TPN was up to 50 with a creatinine of 0.9. She was however in metabolic acidosis with a positive anion gap and her bicarb level was at 16. Chest x-ray revealed left lung capacity probably a combination of atelectatic changes along with a loculated left-sided pleural effusion. There is also some air-fluid levels compatible with necrotizing pneumonia/abscess formation. Old rib fractures were seen on the right. Patient was started on IV Zosyn and the patient was admitted to the floor and a pulmonary consultation was requested. I saw this patient in the oncology unit. The patient was found to be also nature fibrillation with rapid ventricular response. The patient will be scheduled to telemetry unit for Cardizem drip and rate control. A echo cardiac exam will also be ordered. This patient is known to our service and she follows up with Dr. Jacques outpatient patient basis. She is known to have COPD. The patient has an FEV1 of 1.48 L. She also has hypertension, mixed hyperlipidemia and most recently she was diagnosed having it, cell carcinoma of the lung. The patient was found to have a left lung mass on a chest x-ray that was on our office back in September 2017 and this was followed up by a CAT scan of the chest that showed a suspicious left infrahilar mass with obstruction/endobronchial narrowing in the left lower lobe and the mass was measuring 5.3 x 4.2 cm in size in addition to some atelectatic changes and left lung base. Based on this, a bronchoscopy was done and the endobronchial biopsies from the left lower lobe showed squamous cell carcinoma. The PET scan that was done for staging purposes on 10/22/2017 showed a sizable left-sided pleural effusion that was loculated along the left lateral chest area that had developed an interval compared to the previous CAT scan on 10/03/2017. There was also uptake noted in the left hilar region, left lower lobe with an SUV of 9-10. There was also air-fluid level and pockets of air present in the left lower lobe possibly due to necrotic tumor although the possibility of postobstructive pneumonia/abscess formation cannot be completely ruled out. Bilateral emphysematous changes were also noted. The patient also had nonunited fractures at the seventh and the sixth rib and the fifth rib on the right laterally. No other uptake within the skeletal system. Note that the patient was already seen at [facility] for a surgical evaluation and she was told that she was not a surgical candidate due to locally advanced disease. The patient is seen today 10/27/2017 in follow-up on the selective care unit. She had an episode of atrial fibrillation with rapid ventricular response yesterday, treated with verapamil and IV heparin. She is currently in sinus rhythm with frequent PACs. She is feeling slightly better today as compared to yesterday. Her O2 saturation is remaining in the 90s on 2 L/m per nasal cannula. She's been afebrile. She remains on Zosyn and Levaquin. Objective - Vital Signs Vital signs: Vital Signs Temp 97.3 F L 10/27/17 08:00 Pulse 92 10/27/17 08:20 Resp 18 10/27/17 08:00 BP 111/47 10/27/17 08:00 Pulse Ox 95 10/27/17 08:05 Intake & Output 10/26/17 10/27/17 10/27/17 18:59 06:59 18:59 Intake Total 943.273 Output Total 400 Balance 943.273 -400 Weight 68 kg 59.6 kg Intake: Intake, IV Titration 943.273 Amount Diltiazem 50 mg In Sodium 11.417 Chloride 0.9% 40 ml @ Per Protocol IV .Q0M [facility] Rx#:[id number] Heparin Sod,Pork in 0.45% 121.856 NaCl 25,000 unit In 0.45 % NaCl 1 500ml.bag @ 12 UNITS/KG/HR 16.32 mls/hr IV .Q24H [facility] Rx#: [id number] Piperacillin-Tazobactam 3 50 .375 gm In Dextrose/Water 1 50ml.bag @ 12.5 mls/hr IVPB Q8H [facility] Rx#: [id number] Sodium Chloride 0.9% 500 160 ml @ 999 mls/hr IV .Q31M [facility] Rx#:[id number] Water For Injection, 600 Sterile 1,000 ml @ 75 mls /hr IV .[id number] [facility] with Sodium Acetate 150 meq Rx #:[id number] Output: Urine 400 Other: Voiding Method Toilet Toilet # Voids 2 - Exam Appearance, comfortable no acute distress HEENT: Anicteric sclerae, pink and moist conjunctivae. Extraocular movements intact, pupils are reactive to light they are round and equal. External inspection of ears and nose showed normal mucosa. Oral mucosa, soft and hard palate tongue and posterior pharynx are intact. Neck: Supple no neck masses, no JVD, no thyroid enlargement, no adenopathy. Lungs: Symmetrical expansion,Diminished breath sounds and dullness at the left base CVS: Regular rate and rhythm, normal S1 and S2, no gallops, no murmur, no rubs. Abdomen: Soft, nontender, no megaly, no rebound, no guarding, positive bowel sounds. Extremities: No clubbing, no edema, no cyanosis, 2+ pulses in upper and lower extremities. Musculoskeletal: Muscle strength and tone normal. Neurologic: Alert and oriented 3, normal affect, no focal neurologic deficits. Examination of the skin revealed no evidence of significant rashes, suspicious appearing nevi or other concerning lesions. - Labs CBC & Chem 7: 10/26/17 10:25 10/26/17 10:25 Labs: Abnormal Lab Results - Last 24 Hours (Table) 10/26/17 10/27/17 10/27/17 Range/Units 10:25 02:52 10:37 APTT >200.0 H* (22.0-30.0) sec Lactate Dehydrogenase 795 H (313-618) U/L Total Creatine Kinase <20 L (30-135) U/L Total Protein 5.4 L (6.3-8.2) g/dL Assessment and Plan Assessment: Assessment 1 squamous cell carcinoma of the lung, TNM stage III at least, This is a recent diagnosis was established few weeks back and a follow-up PET scan showed significant progression with development of worsening left lower lobe consolidation, air fluid level and a loculated pleural effusion on the left lateral chest area. Rule out postobstructive pneumonia with abscess formation and a parapneumonic effusion. Rule out necrosis related to malignancy with malignant pleural effusion. Note that the patient's PET scan was compared to the previous CAT scan that was done 3 weeks ago in September 2017 and there is obvious progression suspicious for the above-mentioned possibilities. Currently on IV Zosyn. Infection is also favored as the patient has developed some leukocytosis and anion gap metabolic acidosis 2 COPD with FEV1 of 1.4 L at baseline 3 new onset atrial fibrillation with rapid ventricular response 3 acute hypoxic respiratory failure secondary to above 5 hyperlipidemia 6 hypertension 7 endobronchial tumor occupying the posterior segment of the left lower lobe, raising the suspicion for a development of a post obstructive pneumonia/abscess formation. 8 leukocytosis secondary to above Plan The patient was seen and evaluated by Dr. Zamorano. He plans to discuss the patient's chest x-ray and recent computed tomography scan with Dr. Mark from interventional radiology to determine if she may benefit from a pigtail catheter placement. She would also benefit from a repeat bronchoscopy that may be performed tomorrow. In the interim we'll continue with her current medications. Labs are pending need to check the bicarb level today. Her overall prognosis is quite poor. He did have discussions with both the patient and her is at the bedside regarding the plan. We will continue to follow. I, the cosigning physician, performed a history & physical examination of the patient. Lungs sounds with few scattered rhonchi, crackles in the left lung, diminished. Maintaining good O2 saturations in the 90s on 2 L/m per nasal cannula. I discussed the assessment and plan of care with my nurse practitioner , Meghana Cruz. I attest to the above note as dictated by her.
--- NOTE | 2017-10-27 12:45 | HP ---
HISTORY AND PHYSICAL DATE OF ADMISSION: 10/26/2017 DATE OF SERVICE: 10/27/2017 PRESENTING COMPLAINT: Short of breath, cough. HISTORY OF PRESENTING COMPLAINT: This is a pleasant 77-year-old patient who follows with Dr. Jacques. is present with her. Chronic stable medical conditions include GERD, hypertension, hyperlipidemia, osteoarthritis, psoriasis. About 5 weeks ago, patient was diagnosed to have a lung mass. Subsequently, Dr. Jacques did a bronchoscopy, followed by PET scan. Squamous cell carcinoma was diagnosed. Patient was sent down to [facility] for a possible lobectomy. It was felt at this point she was not a surgical candidate. Options were to maybe put a stent because of collapsed left lower lobe. Patient was due for further followup. In the meantime, patient for last 2 weeks has been increasingly short of breath, cough, brown-colored phlegm, low-grade fever, decreased appetite, weak, tired, run down and finally decided to present to the ER yesterday. Chest x-ray showed an air-fluid level. Patient admitted to the medical floor. Subsequently, patient is found to be in atrial fibrillation with rapid ventricular rate. Transferred to the cardiology floor. Patient was then put on a Cardizem drip. Around midnight, patient did convert to sinus rhythm. Patient also started on IV Zosyn. Patient is extremely tired and run down and worn out. REVIEW OF SYSTEMS: CONSTITUTIONAL: Weak, tired, loss of appetite. HEENT: None. RESPIRATORY: As above. Wheezing, cough. CARDIOVASCULAR: None. GASTROINTESTINAL: Heartburn. GENITOURINARY: None. MUSCULOSKELETAL: Arthritic pain in joints. DERMATOLOGICAL: None. HEMATOLOGICAL: None. LYMPHATIC: None. PSYCHIATRY: A bit anxious. NEUROLOGICAL: None. PAST MEDICAL HISTORY: GERD, hyperlipidemia, hypertension, osteoarthritis, skin disorder, squamous cell cancer of the lung, locally advanced, left-sided pleural effusion, hyperlipidemia, hypertension, COPD, recurrent UTIs, psoriasis, colonic polyp, bilateral breast lesions, lumpectomies. PAST SURGICAL HISTORY: Cholecystectomy, hysterectomy. SOCIAL HISTORY: Lives with her . Smoked for 58 years about at least a pack a day, stopped about 2 - 3 weeks ago. Drinks maybe a glass of wine at night. FAMILY HISTORY: Father had leukemia. HOME MEDICATIONS: 1. Prednisone taper. 2. Norvasc 10 mg a day. 3. Levaquin 500 mg a day. 4. Lopid 600 mg b.i.d. 5. Zetia 10 mg a day. 6. Aspirin 81 mg a day. 7. ProAir 2 puffs q.6 p.r.n. ALLERGIES: To BENAZEPRIL. PHYSICAL EXAMINATION: Vital signs on presentation, temperature 97.5 pulse 72, respiratory 18, blood pressure 92/57, pulse ox 93% on room air. GENERAL APPEARANCE: Average build, lying in bed, rather exhausted appearing. EYES: Pupils equal, conjunctivae are pale. HEENT: External appearance of nose and ears normal, oral cavity normal. NECK: JVD not raised. Mass not palpable. RESPIRATORY: Effort increased. LUNGS: Diminished breath sounds. Prolonged expiratory wheezing. Coarse breath sounds on the right side. CARDIOVASCULAR: First and second sounds normal, no edema. ABDOMEN: Soft, nontender. Liver and spleen not palpable. LYMPHATIC: No lymph node palpable in neck or axillae. PSYCHIATRY: Alert and oriented x3. Mood and affect slightly low. NEUROLOGICAL: Pupils equal. Cranial nerves grossly intact. Power and sensation grossly intact. INVESTIGATIONS: White count 23.7, hemoglobin 10.9, platelets 570, potassium 3.7, bicarb 16, BUN 50, creatinine 0.91, albumin 2.4. TSH 1.090. EKG tracing interpreted by me shows sinus rhythm with some nonspecific ST-segment changes. Chest x-ray film interpreted by me shows a gastric bubble, possible left lobe collapse. There may be an abscess with an air-fluid level. ASSESSMENT: 1. Was done in the clinical, radiological and context of the labs above. 2. Squamous cell cancer, recently diagnosed. Patient not felt to be a surgical candidate at this point. There may be associated left lower lung collapse and there may be an associated abscess within an air-fluid level. Will discuss with Dr. Zamorano if patient may be better served at [facility], if a stent can be placed. Of course, other option is to drain the abscess locally at the hospital here. Patient is already on antibiotics in form of Zosyn and Levaquin. 3. Possible lung abscess left lower lobe. 4. Gastroesophageal reflux disease. 5. Hyperlipidemia. 6. Essential hypertension. 7. Primary osteoarthritis. 8. Acute chronic obstructive pulmonary disease exacerbation in an ex-smoker. 9. Possible left pleural effusion, malignant. 10.New onset atrial fibrillation with rapid ventricular rate, now converted to sinus rhythm after which patient was on IV Cardizem. PLAN: Care was discussed with the at the bedside. Will discuss with Dr. Zamorano. In the meantime, patient is on an antibiotics and also add bronchodilators and IV steroids. Patient also is on Cardizem drip, did convert to sinus rhythm. Was put on verapamil. Consultation to Dr. Zamorano and Cardiology withstanding. MMODL / IJN: [id number] /
[2017-10-27] MEDS: methylPREDNISolone SOD SUCCI 40 MG/ML 1 ML VIAL IV SCH ×2 (12:53→20:27)
[2017-10-27 12:55] LABS: Anisocytosis Slight; HCT 37.1 % (34.0-46.0); HGB 10.9 gm/dL (11.4-16.0); Hypochromasia Marked; MCH 25.8 pg (25.0-35.0); MCHC 29.3 g/dL (31.0-37.0); MCV 88.1 fL (80.0-100.0); Mean Platelet Volume 9.5; Platelet Count 609 k/uL (150-450); RBC 4.21 m/uL (3.80-5.40); RDW 16.3 % (11.5-15.5)
[2017-10-27 13:03] LABS: WBC 26.3 k/uL (3.8-10.6)
[2017-10-27 13:23] LABS: ALT 35 U/L (9-52); AST 37 U/L (14-36); Albumin 2.3 g/dL (3.5-5.0); Alkaline Phosphatase 211 U/L (38-126); Anion Gap 14 mmol/L; Blood Urea Nitrogen 48 mg/dL (7-17); Calcium 8.2 mg/dL (8.4-10.2); Carbon Dioxide 18 mmol/L (22-30); Chloride 108 mmol/L (98-107); Glucose 185 mg/dL (74-99); Sodium 140 mmol/L (137-145); Total Bilirubin 0.7 mg/dL (0.2-1.3)
[2017-10-27 13:27] LABS: Potassium 3.9 mmol/L (3.5-5.1)
[2017-10-27 13:57] LABS: Lymphocytes # (M) 0.79 k/uL (1.0-4.8); Monocytes # (M) 1.84 k/uL (0-1.0); Neutrophils # (M) 23.67 k/uL (1.3-7.7); Neutrophils % (M) 90 %; Nucleated Red Blood Cells 0 /100 WBC (0-0); Total Cells Counted 100
--- NOTE | 2017-10-27 16:55 | US ---
EXAMINATION TYPE: US guided chest tube insertion DATE OF EXAM: 10/27/2017 COMPARISON: Nuclear medicine PET/CT 10/22/2017 HISTORY: Lung carcinoma, left pleural effusion, leukocytosis and fever PROCEDURE: Ultrasound was used to sterile technique. The skin overlying a suitable path to the patien t's right pleural effusion was prepped and draped and Lidocaine used for local anesthesia, skin melanie made with a scalpel. Using Seldinger technique a 8-[place] all-purpose drainage catheter was introduc ed into the pleural space. Catheter was fixed to the skin, a sterile dressing placed. Catheter was attached to one-way valve. Hemostasis achieved. Patient remained in stable condition. Post procedu re chest x-ray pending. IMPRESSION: Status post ultrasound chest tube insertion. This procedure performed by the undersigned
[2017-10-27 17:06] LABS: Glucose,Whole Blood 157 mg/dL (75-99)
--- NOTE | 2017-10-27 17:31 | ECHOF ---
Referral Reason:afib MEASUREMENTS -------- HEIGHT: 152.4 cm WEIGHT: 59.4 kg BP: 127/66 IVSd: 1.3 cm (0.6 - 1.1) LVIDd: 3.4 cm (3.9 - 5.3) LVPWd: 1.3 cm (0.6 - 1.1) IVSs: 1.6 cm LVIDs: 2.6 cm LVPWs: 1.4 cm LAESV Index (A-L): 65.80 ml/m Ao Diam: 2.5 cm (2.0 - 3.7) LA Diam: 3.5 cm (2.7 - 3.8) AV Cusp: 1.3 cm (1.5 - 2.6) EPSS: 0.2 cm MV E Doug: 0.84 m/s MV DecT: 281 ms MV A Doug: 1.22 m/s MV E/A Ratio: 0.69 RAP: 5.00 mmHg RVSP: 33.13 mmHg MV EF SLOPE: 60.76 mm/s (70 - 150) MV EXCURSION: 12.49 mm (> 18.000) FINDINGS -------- Atrial fibrillation. This was a technically adequate study. The left ventricular size is normal. There is mild concentric left ventricular hypertrophy. Overa ll left ventricular systolic function is normal with, an EF between 55 - 60 %. The right ventricle is normal in size. The left atrium is mildly dilated. LA is severely dilated >40 ml/m2 The right atrial size is normal. The aortic valve is trileaflet, and appears structurally normal. No aortic stenosis or regurgitation. Mild mitral regurgitation is present. Mild tricuspid regurgitation present. There is no evidence of pulmonary hypertension. The right v entricular systolic pressure, as measured by Doppler, is 33.13mmHg. There is no pulmonic regurgitation present. The aortic root size is normal. Echo free space represents a pericardial fat pad. Small Pleural Effusion. CONCLUSIONS -------- 1. The left ventricular size is normal. 2. There is mild concentric left ventricular hypertrophy. 3. Overall left ventricular systolic function is normal with, an EF between 55 - 60 %. 4. The right ventricle is normal in size. 5. The left atrium is mildly dilated. 6. LA is severely dilated >40 ml/m2 7. The right atrial size is normal. 8. The aortic valve is trileaflet, and appears structurally normal. No aortic stenosis or regurgitati on. 9. Mild mitral regurgitation is present. 10. Mild tricuspid regurgitation present. 11. There is no evidence of pulmonary hypertension. 12. The right ventricular systolic pressure, as measured by Doppler, is 33.13mmHg. 13. There is no pulmonic regurgitation present. 14. The aortic root size is normal. 15. Echo free space represents a pericardial fat pad. 16. Small Pleural Effusion. INSPECTOR PRECISION: Jessica Rodriguez RDCS
[2017-10-27] MEDS: LACTULOSE 20 GM/30 ML CUP PO PRN (17:56)
[2017-10-27] MEDS: LEVOFLOXACIN 500 MG TAB PO SCH (18:00)
[2017-10-27] MEDS: ACETAMINOPHEN TAB 325 MG TAB PO PRN (18:09)
[2017-10-27] MEDS: INSULIN ASPART 100 UNIT/ML 1 ML 10 ML VIAL SQ SCH ×2 (18:10→21:23)
[2017-10-27] MEDS: NAPROXEN 250 MG TAB PO SCH (18:16)
[2017-10-27] MEDS: HEPARIN SOD,PORK IN 0.45% NACL 25,000 UNIT in 0.45% NACL 1 500ML.BAG IV SCH (19:08)
[2017-10-27 20:27] LABS: Appearance,BF Cloudy
[2017-10-27 20:28] LABS: Nucleated Cells, Body Fluid 3900 /uL; RBC, Body Fluid 1500 /uL
[2017-10-27 20:31] LABS: Mononuclear WBC,Body Fluid 36 %; Polynuclear WBC,Body Fluid 62 %; Total Cells Counted,Body Fluid 100
[2017-10-27] MEDS: ASPIRIN 81 MG PO SCH (20:34)
[2017-10-27 21:22] LABS: Glucose,Whole Blood 183 mg/dL (75-99)
--- NOTE | 2017-10-27 21:53 | P.CONS ---
History of Present Illness - Reason for Consult Consult date: 10/27/17 Lung Cancer Requesting physician: Nidhi Zamorano - Chief Complaint Increasing Shortness of breath - History of Present Illness A 77-year-old female patient presented to [facility] with complaints of increasing shortness of breath, persisting over the past few days and progressing. On 09/27/17, Ora went for a chest xray for persistent cough and increasing SOB. Chest xray revealed a suspicious finding, concerning for underlying malignancy. A loculated left sided pleural effusion was also noted. On 10/02/17, this finding was followed up with a CT scan. The CT scan revealed a heterogenous left infrahilar mass/consolidation approx 5.8X4.2cm in size. On a bronchoscopy with biopsy was obtained, pathology resulted showing squamous cell carcinoma of the lung. She had an initial staging PET scan done on 10/22/17, failed to show evidence of Metastatic disease, did show a SUV uptake of the left lobe mass at 9-10SUV. She was set up to follow-up with an initial consultation with Dr. Jackson next week although with her increasing SOB, she present to [facility]. She has a known history of roasterman tobacco use, COPD. She follows with Dr. Jacques as outpatient. The patient also had fractures at the seventh and the sixth rib and the fifth rib on the right laterally. No other uptake within the skeletal system. She was seen at [facility] for a surgical evaluation and she was told that she was not a surgical candidate due to the location of her locally advanced disease. During evaluation she has increased effort of breathing, limited discussion due to procedure plan, at bedside. 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 Past Anesthesia/Blood Transfusion Reactions: No Reported Reaction Smoking Status: Former smoker - Past Family History Father Family Medical History: Cancer Additional Family Medical History / Comment(s): Father had leukemia. Mother Family Medical History: Cancer Additional Family Medical History / Comment(s): Mother had breast cancer. Sister(s) Family Medical History: Cancer Additional Family Medical History / Comment(s): Sister had colon cancer. Medications and Allergies Home Medications Medication Instructions Recorded Confirmed Type Ezetimibe [Zetia] 10 mg PO DAILY 10/15/13 10/26/17 History Albuterol Sulfate [Proair Hfa] 2 puff INHALATION RT-Q6H PRN 10/26/17 10/26/17 History Aspirin EC [Ecotrin Low Dose] 81 mg PO HS 10/26/17 10/26/17 History Gemfibrozil [Lopid] 600 mg PO AC-BID 10/26/17 10/26/17 History Levofloxacin [Levaquin] 500 mg PO DAILY 10/26/17 10/26/17 History amLODIPine [Norvasc] 10 mg PO DAILY 10/26/17 10/26/17 History predniSONE See Taper PO DAILY 10/26/17 10/26/17 History Allergies Allergy/AdvReac Type Severity Reaction Status Date / Time benazepril HCl [From Lotrel] Allergy Swelling Verified 10/26/17 10:13 Physical Exam Vitals: Vital Signs Temp Pulse Pulse Resp BP Pulse Ox 10/27/17 20:47 93 10/27/17 20:40 94 L 10/27/17 20:35 90 10/27/17 20:00 98.6 F 87 18 119/65 95 10/27/17 19:31 99 18 111/48 93 L 10/27/17 18:31 101 H 18 101/45 93 L 10/27/17 18:01 100 18 103/55 92 L 10/27/17 17:31 101 H 18 101/51 92 L 10/27/17 17:16 99 18 111/49 93 L 10/27/17 17:01 96.9 F L 91 18 113/47 93 L 10/27/17 16:50 77 18 110/48 95 07/12/18 16:25 76 18 108/44 95 10/27/17 16:00 78 18 10/27/17 13:24 97.1 F L 78 18 100/48 90 L 10/27/17 12:00 97.1 F L 78 18 100/40 89 L 10/27/17 08:20 92 10/27/17 08:05 88 95 10/27/17 08:00 97.3 F L 90 18 111/47 95 10/27/17 04:00 97.0 F L 86 18 127/66 93 L 10/27/17 00:00 97.4 F L 83 18 107/63 92 L Intake and Output 10/27/17 10/27/17 10/27/17 06:59 14:59 22:59 Intake Total 943.273 165.92 624.14 Output Total 700 260 Balance 943.273 -534.08 364.14 Intake: IV 600 0.9 600 Intake, IV Titration 943.273 165.92 24.14 Amount Diltiazem 50 mg In Sodium 11.417 Chloride 0.9% 40 ml @ Per Protocol IV .Q0M [facility] Rx#:[id number] Heparin Sod,Pork in 0.45% 121.856 165.92 24.14 NaCl 25,000 unit In 0.45 % NaCl 1 500ml.bag @ 12 UNITS/KG/HR 16.32 mls/hr IV .Q24H [facility] Rx#: [id number] Piperacillin-Tazobactam 3 50 .375 gm In Dextrose/Water 1 50ml.bag @ 12.5 mls/hr IVPB Q8H [facility] Rx#: [id number] Sodium Chloride 0.9% 500 160 ml @ 999 mls/hr IV .Q31M [facility] Rx#:[id number] Water For Injection, 600 Sterile 1,000 ml @ 75 mls /hr IV .[id number] [facility] with Sodium Acetate 150 meq Rx #:[id number] Oral 0 Output: Chest Tube Drainage 260 Pleural Catheter Left 260 Urine 700 Other: Voiding Method Toilet Toilet Toilet # Voids 2 Weight 59.6 kg - Constitutional General appearance: cooperative, no acute distress - EENT Eyes: EOMI, PERRLA, dentition normal ENT: NA/AT, normal oropharynx - Neck supple, trachea midline Neck: normal ROM - Respiratory Respiratory: left: diminished (mild increased respiratory effort) - Cardiovascular Heart rate: 96 Rhythm: irregularly irregular - Gastrointestinal General gastrointestinal: normal bowel sounds, soft - Integumentary Integumentary: pale - Neurologic No focal Defects Neurologic: CNII-XII intact - Musculoskeletal Musculoskeletal: gait normal, generalized weakness, strength equal bilaterally - Psychiatric Psychiatric: A&O x's 3, appropriate affect, intact judgment & insight Results CBC & Chem 7: 10/27/17 03:00 10/27/17 02:52 Labs: Abnormal Lab Results - Last 24 Hours (Table) 10/27/17 10/27/17 10/27/17 Range/Units 02:52 03:00 10:37 WBC 26.3 H* (3.8-10.6) k/uL Hgb 10.9 L (11.4-16.0) gm/dL MCHC 29.3 L (31.0-37.0) g/dL RDW 16.3 H (11.5-15.5) % Plt Count 609 H (150-450) k/uL Neutrophils # (Manual) 23.67 H (1.3-7.7) k/uL Lymphocytes # (Manual) 0.79 L (1.0-4.8) k/uL Monocytes # (Manual) 1.84 H (0-1.0) k/uL APTT >200.0 H* (22.0-30.0) sec Chloride 108 H (98-107) mmol/L Carbon Dioxide 18 L (22-30) mmol/L BUN 48 H (7-17) mg/dL Glucose 185 H (74-99) mg/dL POC Glucose (mg/dL) (75-99) mg/dL Calcium 8.2 L (8.4-10.2) mg/dL AST 37 H (14-36) U/L Alkaline Phosphatase 211 H (38-126) U/L Lactate Dehydrogenase 795 H (313-618) U/L Total Protein 5.4 L (6.3-8.2) g/dL Albumin 2.3 L (3.5-5.0) g/dL 10/27/17 10/27/17 Range/Units 14:45 17:04 WBC (3.8-10.6) k/uL Hgb (11.4-16.0) gm/dL MCHC (31.0-37.0) g/dL RDW (11.5-15.5) % Plt Count (150-450) k/uL Neutrophils # (Manual) (1.3-7.7) k/uL Lymphocytes # (Manual) (1.0-4.8) k/uL Monocytes # (Manual) (0-1.0) k/uL APTT 21.8 L (22.0-30.0) sec Chloride (98-107) mmol/L Carbon Dioxide (22-30) mmol/L BUN (7-17) mg/dL Glucose (74-99) mg/dL POC Glucose (mg/dL) 157 H (75-99) mg/dL Calcium (8.4-10.2) mg/dL AST (14-36) U/L Alkaline Phosphatase (38-126) U/L Lactate Dehydrogenase (313-618) U/L Total Protein (6.3-8.2) g/dL Albumin (3.5-5.0) g/dL CT scan - chest: report reviewed Assessment and Plan Plan: Assessment and Recommendations: 1. New Diagnosis of Squamous Cell Carcinoma of the left lung - Plan to see Dr. Jackson as outpatient after discharged - Radiation Consultation Reasonable for likely concurrent radiation and chemotherapy as treatment option, defer to Dr. Jackson and radiation for final recommendation. - Imaging of the brain for initial staging is resonable in squamous cell lung cancer stage III, this can be completed as outpatient unless neurological changes or concerns. - Plan to review diagnosis and treatment options with patient and further in am. 2. Progression in development of worsening left lower lobe consolidation - Concern for post obstructive pneumonia (Leukocytosis also present to assist in favoring infectious component) - IV Zosyn - Primary and Pulmonary 3. Acute Respiratory Insufficiency - Underlying chronic COPD - New Non-small cell lung cancer with loculated pleural effusions and concern for increased progression of consolidation 4. Normocytic Anemia - Monitor CBC - Chronic Disease, Inflammation 5. New onset Atrial Fibrillation with RVR Thank You for allowing us to follow along with you, More Recs to follow Physician Attestation: I have completed the full history and physical of this patient and agree with above dictation, dictated as a scribe
--- NOTE | 2017-10-27 22:04 | XR ---
EXAMINATION: XR chest 1V at 5:21 PM DATE AND TIME: 10/27/2017 5:35 PM ORDERING PROVIDER: Abel Mark CLINICAL INDICATION: post chest tube placement TECHNIQUE: AP upright portable COMPARISON: Chest radiograph 10/26/2017 at 10:41 AM DESCRIPTION: Since the prior study a pigtail catheter has been inserted from a lower left thoracic ap proach, with pigtail projecting just medial to the left lateral ribs. There is no pneumothorax. The near white out of the left hemithorax is redemonstrated with little inflated lung in the left ape x. On the right, the lung is clear and the right pleural space is negative. Mediastinum is midline. Heart and mediastinal silhouette appears similar to the prior study. No acute skeletal or soft tissue findings are evident. IMPRESSION: XR POST CHEST TUBE PLACEMENT.
[2017-10-28] MEDS: ALPRAZolam 0.25 MG TAB PO PRN ×2 (01:11→22:04)
[2017-10-28] MEDS: IPRATROPIUM-ALBUTEROL 3 ML NEB INHALATION SCH ×7 (01:29→23:48)
[2017-10-28] MEDS: methylPREDNISolone SOD SUCCI 40 MG/ML 1 ML VIAL IV SCH ×3 (05:09→20:46)
[2017-10-28] MEDS: PIPERACILLIN-TAZOBACTAM 3.375 GM in DEXTROSE/WATER 1 50ML.BAG IVPB SCH ×3 (05:09→20:46)
[2017-10-28 06:02] LABS: Glucose,Whole Blood 177 mg/dL (75-99)
[2017-10-28] MEDS: GEMFIBROZIL 600 MG TAB PO SCH ×2 (06:24→17:20)
[2017-10-28] MEDS: NAPROXEN 250 MG TAB PO SCH ×3 (06:24→17:20)
[2017-10-28] MEDS: INSULIN ASPART 100 UNIT/ML 1 ML 10 ML VIAL SQ SCH ×4 (06:24→22:00)
[2017-10-28] MEDS: BUDESONIDE 0.5 MG/2 ML NEBU INHALATION SCH ×2 (07:54→20:46)
[2017-10-28] MEDS: EZETIMIBE 10 MG TAB PO SCH (09:09)
[2017-10-28] MEDS: VERAPAMIL 40 MG TAB PO SCH ×3 (09:12→20:47)
[2017-10-28 10:05] LABS: Anisocytosis Slight; Basophils % (A) 0 %; Eosinophils % (A) 0 %; HCT 33.9 % (34.0-46.0); HGB 10.2 gm/dL (11.4-16.0); Hypochromasia Moderate; Lymphocytes # (A) 0.7 k/uL (1.0-4.8); Lymphocytes % (A) 4 %; MCHC 30.1 g/dL (31.0-37.0); Mean Platelet Volume 7.6; Monocytes # (A) 0.3 k/uL (0-1.0); Monocytes % (A) 2 %; Neutrophils % (A) 93 %; Platelet Count 571 k/uL (150-450); RBC 4.09 m/uL (3.80-5.40); RDW 16.6 % (11.5-15.5); WBC 16.1 k/uL (3.8-10.6)
[2017-10-28 10:07] LABS: ALT 45 U/L (9-52); AST 35 U/L (14-36); Albumin 2.2 g/dL (3.5-5.0); Alkaline Phosphatase 200 U/L (38-126); Anion Gap 10 mmol/L; Blood Urea Nitrogen 45 mg/dL (7-17); Calcium 8.2 mg/dL (8.4-10.2); Carbon Dioxide 28 mmol/L (22-30); Chloride 102 mmol/L (98-107); Glucose 196 mg/dL (74-99); Magnesium 2.5 mg/dL (1.6-2.3); Potassium 3.4 mmol/L (3.5-5.1); Sodium 140 mmol/L (137-145); Total Bilirubin 0.6 mg/dL (0.2-1.3)
--- NOTE | 2017-10-28 11:35 | XR ---
EXAMINATION TYPE: XR chest 1V portable DATE OF EXAM: 10/28/2017 HISTORY: left lung empyema, mass, chest tube COMPARISON: 10/27/2017 TECHNIQUE: Single view of the chest is submitted. FINDINGS: Demonstrated are scattered senescent parenchymal change. Large left-sided pleural-based collection is slightly smaller in size and on prior study. Left basila r pleural catheter is in place. Underlying mass is not excluded. No evidence for pneumothorax. The heart is stable. Hilar and mediastinal structures are within normal limits. Degenerative changes are seen of the dorsal spine. IMPRESSION: 1. Large left-sided pleural-based collection is slightly smaller in size and on prior study. Left ba silar pleural catheter is in place. Underlying mass is not excluded.
[2017-10-28] MEDS: LEVOFLOXACIN 250 MG TAB PO SCH (11:45)
[2017-10-28 12:03] LABS: Glucose,Whole Blood 199 mg/dL (75-99)
--- NOTE | 2017-10-28 12:45 | P.PN ---
Subjective Progress Note Date: 10/28/17 Principal diagnosis: Squamous cell carcinoma of the lung, TNM stage III with postobstructive pneumonia and pleural effusion. A 77-year-old female patient presented to MRSA problem because of worsening shortness of breath. No chest pain. No pleurisy. She felt feverish and she was progressively getting weak over the past few days. In the ED, the patient a temperature of 97.5, pulse rate of 81 which was pulse ox 92% on room air. Her white cell, was 23.7. TPN was up to 50 with a creatinine of 0.9. She was however in metabolic acidosis with a positive anion gap and her bicarb level was at 16. Chest x-ray revealed left lung capacity probably a combination of atelectatic changes along with a loculated left-sided pleural effusion. There is also some air-fluid levels compatible with necrotizing pneumonia/abscess formation. Old rib fractures were seen on the right. Patient was started on IV Zosyn and the patient was admitted to the floor and a pulmonary consultation was requested. I saw this patient in the oncology unit. The patient was found to be also nature fibrillation with rapid ventricular response. The patient will be scheduled to telemetry unit for Cardizem drip and rate control. A echo cardiac exam will also be ordered. This patient is known to our service and she follows up with Dr. Jacques outpatient patient basis. She is known to have COPD. The patient has an FEV1 of 1.48 L. She also has hypertension, mixed hyperlipidemia and most recently she was diagnosed having it, cell carcinoma of the lung. The patient was found to have a left lung mass on a chest x-ray that was on our office back in September 2017 and this was followed up by a CAT scan of the chest that showed a suspicious left infrahilar mass with obstruction/endobronchial narrowing in the left lower lobe and the mass was measuring 5.3 x 4.2 cm in size in addition to some atelectatic changes and left lung base. Based on this, a bronchoscopy was done and the endobronchial biopsies from the left lower lobe showed squamous cell carcinoma. The PET scan that was done for staging purposes on 10/22/2017 showed a sizable left-sided pleural effusion that was loculated along the left lateral chest area that had developed an interval compared to the previous CAT scan on 10/03/2017. There was also uptake noted in the left hilar region, left lower lobe with an SUV of 9-10. There was also air-fluid level and pockets of air present in the left lower lobe possibly due to necrotic tumor although the possibility of postobstructive pneumonia/abscess formation cannot be completely ruled out. Bilateral emphysematous changes were also noted. The patient also had nonunited fractures at the seventh and the sixth rib and the fifth rib on the right laterally. No other uptake within the skeletal system. Note that the patient was already seen at [facility] for a surgical evaluation and she was told that she was not a surgical candidate due to locally advanced disease. The patient is seen today 10/27/2017 in follow-up on the selective care unit. She had an episode of atrial fibrillation with rapid ventricular response yesterday, treated with verapamil and IV heparin. She is currently in sinus rhythm with frequent PACs. She is feeling slightly better today as compared to yesterday. Her O2 saturation is remaining in the 90s on 2 L/m per nasal cannula. She's been afebrile. She remains on Zosyn and Levaquin. The patient is seen again today 10/28/2017 in follow-up on the selective care unit. She is doing better today as compared to yesterday. She is currently sitting up in a chair at the bedside. She is breathing easier. Interventional radiology inserted a pigtail catheter in the left lower lung which is drained approximately 500 ML's of thick purulent drainage. Preliminary findings indicate moderate polymorphonuclear leukocytes, many gram-positive cocci and appears in chains, moderate gram-negative bacilli. She is currently on Zosyn and Levaquin. Chest x-ray does show improved aeration of the lower lobe however there is still pocketed fluid in the left midlung. She is currently afebrile. Maintaining O2 saturations in the 90s on 2 L/m per nasal cannula. White count 16.1. Hemoglobin 10.2. Creatinine 0.70. Objective - Vital Signs Vital signs: Vital Signs Temp 97.0 F L 10/28/17 11:30 Pulse 64 10/28/17 12:13 Resp 20 10/28/17 11:30 BP 87/51 10/28/17 11:30 Pulse Ox 94 L 10/28/17 11:30 Intake & Output 10/27/17 10/28/17 10/28/17 18:59 06:59 18:59 Intake Total 165.92 1284.14 118 Output Total 700 260 200 Balance -534.08 1024.14 -82 Weight 59.7 kg Intake: IV 1160 0.9 1160 Intake, IV Titration 165.92 124.14 Amount Heparin Sod,Pork in 0.45% 165.92 24.14 NaCl 25,000 unit In 0.45 % NaCl 1 500ml.bag @ 12 UNITS/KG/HR 16.32 mls/hr IV .Q24H [facility] Rx#: [id number] Piperacillin-Tazobactam 3 100 .375 gm In Dextrose/Water 1 50ml.bag @ 12.5 mls/hr IVPB Q8H [facility] Rx#: [id number] Oral 0 118 Output: Chest Tube Drainage 260 0 Pleural Catheter Left 260 0 Drainage 200 Left Chest 200 Urine 700 Other: Voiding Method Toilet Toilet Toilet - Exam Appearance, comfortable no acute distress HEENT: Anicteric sclerae, pink and moist conjunctivae. Extraocular movements intact, pupils are reactive to light they are round and equal. External inspection of ears and nose showed normal mucosa. Oral mucosa, soft and hard palate tongue and posterior pharynx are intact. Neck: Supple no neck masses, no JVD, no thyroid enlargement, no adenopathy. Lungs: Symmetrical expansion,Diminished breath sounds and dullness at the left base CVS: Regular rate and rhythm, normal S1 and S2, no gallops, no murmur, no rubs. Abdomen: Soft, nontender, no megaly, no rebound, no guarding, positive bowel sounds. Extremities: No clubbing, no edema, no cyanosis, 2+ pulses in upper and lower extremities. Musculoskeletal: Muscle strength and tone normal. Neurologic: Alert and oriented 3, normal affect, no focal neurologic deficits. Examination of the skin revealed no evidence of significant rashes, suspicious appearing nevi or other concerning lesions. - Labs CBC & Chem 7: 10/28/17 09:21 10/28/17 09:21 Labs: Abnormal Lab Results - Last 24 Hours (Table) 10/27/17 10/27/17 10/27/17 Range/Units 02:52 03:00 14:45 WBC 26.3 H* (3.8-10.6) k/uL Hgb 10.9 L (11.4-16.0) gm/dL Hct (34.0-46.0) % MCHC 29.3 L (31.0-37.0) g/dL RDW 16.3 H (11.5-15.5) % Plt Count 609 H (150-450) k/uL Neutrophils # (1.3-7.7) k/uL Neutrophils # (Manual) 23.67 H (1.3-7.7) k/uL Lymphocytes # (1.0-4.8) k/uL Lymphocytes # (Manual) 0.79 L (1.0-4.8) k/uL Monocytes # (Manual) 1.84 H (0-1.0) k/uL APTT 21.8 L (22.0-30.0) sec Potassium (3.5-5.1) mmol/L Chloride 108 H (98-107) mmol/L Carbon Dioxide 18 L (22-30) mmol/L BUN 48 H (7-17) mg/dL Glucose 185 H (74-99) mg/dL POC Glucose (mg/dL) (75-99) mg/dL Calcium 8.2 L (8.4-10.2) mg/dL Magnesium (1.6-2.3) mg/dL AST 37 H (14-36) U/L Alkaline Phosphatase 211 H (38-126) U/L Lactate Dehydrogenase 795 H (313-618) U/L Total Protein 5.4 L (6.3-8.2) g/dL Albumin 2.3 L (3.5-5.0) g/dL 10/27/17 10/27/17 10/28/17 Range/Units 17:04 21:21 06:01 WBC (3.8-10.6) k/uL Hgb (11.4-16.0) gm/dL Hct (34.0-46.0) % MCHC (31.0-37.0) g/dL RDW (11.5-15.5) % Plt Count (150-450) k/uL Neutrophils # (1.3-7.7) k/uL Neutrophils # (Manual) (1.3-7.7) k/uL Lymphocytes # (1.0-4.8) k/uL Lymphocytes # (Manual) (1.0-4.8) k/uL Monocytes # (Manual) (0-1.0) k/uL APTT (22.0-30.0) sec Potassium (3.5-5.1) mmol/L Chloride (98-107) mmol/L Carbon Dioxide (22-30) mmol/L BUN (7-17) mg/dL Glucose (74-99) mg/dL POC Glucose (mg/dL) 157 H 183 H 177 H (75-99) mg/dL Calcium (8.4-10.2) mg/dL Magnesium (1.6-2.3) mg/dL AST (14-36) U/L Alkaline Phosphatase (38-126) U/L Lactate Dehydrogenase (313-618) U/L Total Protein (6.3-8.2) g/dL Albumin (3.5-5.0) g/dL 10/28/17 10/28/17 10/28/17 Range/Units 09:21 09:21 11:30 WBC 16.1 H (3.8-10.6) k/uL Hgb 10.2 L (11.4-16.0) gm/dL Hct 33.9 L (34.0-46.0) % MCHC 30.1 L (31.0-37.0) g/dL RDW 16.6 H (11.5-15.5) % Plt Count 571 H (150-450) k/uL Neutrophils # 15.0 H (1.3-7.7) k/uL Neutrophils # (Manual) (1.3-7.7) k/uL Lymphocytes # 0.7 L (1.0-4.8) k/uL Lymphocytes # (Manual) (1.0-4.8) k/uL Monocytes # (Manual) (0-1.0) k/uL APTT (22.0-30.0) sec Potassium 3.4 L (3.5-5.1) mmol/L Chloride (98-107) mmol/L Carbon Dioxide (22-30) mmol/L BUN 45 H (7-17) mg/dL Glucose 196 H (74-99) mg/dL POC Glucose (mg/dL) 199 H (75-99) mg/dL Calcium 8.2 L (8.4-10.2) mg/dL Magnesium 2.5 H (1.6-2.3) mg/dL AST (14-36) U/L Alkaline Phosphatase 200 H (38-126) U/L Lactate Dehydrogenase (313-618) U/L Total Protein 5.0 L (6.3-8.2) g/dL Albumin 2.2 L (3.5-5.0) g/dL Microbiology - Last 24 Hours (Table) 10/27/17 16:40 Gram Stain - Preliminary Pleural Fluid Body Fluid Culture - Preliminary 10/27/17 16:40 Anaerobic Culture - Preliminary Pleural Fluid Assessment and Plan Assessment: Assessment 1 squamous cell carcinoma of the lung, TNM stage III at least, This is a recent diagnosis was established few weeks back and a follow-up PET scan showed significant progression with development of worsening left lower lobe consolidation, air fluid level and a loculated pleural effusion on the left lateral chest area. Rule out postobstructive pneumonia with abscess formation and a parapneumonic effusion. Rule out necrosis related to malignancy with malignant pleural effusion. Note that the patient's PET scan was compared to the previous CAT scan that was done 3 weeks ago in September 2017 and there is obvious progression suspicious for the above-mentioned possibilities. Currently on IV Zosyn. Infection is also favored as the patient has developed some leukocytosis and anion gap metabolic acidosis 2 COPD with FEV1 of 1.4 L at baseline 3 new onset atrial fibrillation with rapid ventricular response 3 acute hypoxic respiratory failure secondary to above 5 hyperlipidemia 6 hypertension 7 endobronchial tumor occupying the posterior segment of the left lower lobe, raising the suspicion for a development of a post obstructive pneumonia/abscess formation. 8 leukocytosis secondary to above Plan The patient was seen and evaluated by Dr. Zamorano. Chest x-ray, Tex Velez and labs all reviewed. There is improved aeration of left lower lung however there is still pocketed fluid in the left midlung. She is status post pigtail catheter left lower lung with nearly 500 mL of purulent drainage noted. He has spoken with Dr. Mark in interventional radiology to insert a second pigtail catheter in the left midlung area to drain that second pocket. She may also benefit from a repeat bronchoscopy to possibly excess the abscess endobronchial. In the interim we'll continue with her current medications. We' ll discontinue the bicarb drip. Her overall prognosis is quite poor. He did have discussions with both the patient and her is at the bedside regarding the plan. We will continue to follow. I, the cosigning physician, performed a history & physical examination of the patient. Lungs sounds with few scattered rhonchi, crackles in the left lung, diminished. Maintaining good O2 saturations in the 90s on 2 L/m per nasal cannula. I discussed the assessment and plan of care with my nurse practitioner , Meghana Cruz. I attest to the above note as dictated by her.
[2017-10-28] MEDS ORDERED: SODIUM CHLORIDE 0.9% 250 ML IV ONE (13:21)
--- NOTE | 2017-10-28 13:42 | P.PN ---
Subjective Progress Note Date: 10/28/17 This is a pleasant 77-year-old female with a history of hyperlipidemia , hypertension, recent diagnosis of lung cancer, more than 60 pack year smoker, history of diverticulitis with a partial colectomy, GERD, presents to the hospital on this occasion with symptoms of shortness of breath. According to the patient, she follows with Dr. Jacques in the office, and he had mentioned something about a possible thoracentesis. Her chest x-ray on admission revealed findings compatible with patient's history of lung carcinoma, pleural effusion and atelectasis. There is a sizable left pleural effusion noted. EKG on admission here showed a normal sinus rhythm with nonspecific ST-T wave changes. An EKG showed atrial fibrillation with a rapid ventricular response. This morning the patient is back in a normal sinus rhythm. Occasional PVCs and PACs are noted. Patient denies any prior history of atrial fibrillation. patient underwent ultrasound guided chest tube insertion yesterday and she verbalizes feeling quite a bit better today. She remains in sinus rhythm with PVCs and PACs. Her blood pressure is on the low side today in the 80s to 90s systolic. She is asymptomatic. Objective - Vital Signs Vital signs: Vital Signs Temp 97.0 F L 10/28/17 11:30 Pulse 64 10/28/17 12:13 Resp 20 10/28/17 11:30 BP 87/51 10/28/17 11:30 Pulse Ox 94 L 10/28/17 11:30 Intake & Output 10/27/17 10/28/17 10/28/17 18:59 06:59 18:59 Intake Total 165.92 1284.14 118 Output Total 700 260 200 Balance -534.08 1024.14 -82 Weight 59.7 kg Intake: IV 1160 0.9 1160 Intake, IV Titration 165.92 124.14 Amount Heparin Sod,Pork in 0.45% 165.92 24.14 NaCl 25,000 unit In 0.45 % NaCl 1 500ml.bag @ 12 UNITS/KG/HR 16.32 mls/hr IV .Q24H [facility] Rx#: [id number] Piperacillin-Tazobactam 3 100 .375 gm In Dextrose/Water 1 50ml.bag @ 12.5 mls/hr IVPB Q8H [facility] Rx#: [id number] Oral 0 118 Output: Chest Tube Drainage 260 0 Pleural Catheter Left 260 0 Drainage 200 Left Chest 200 Urine 700 Other: Voiding Method Toilet Toilet Toilet - Exam PHYSICAL EXAMINATION: HEENT: [Head is atraumatic, normocephalic. Pupils equal, round. Neck is supple. There is no elevated jugular venous pressure.] HEART EXAMINATION: [Heart sounds regular, S1 and S2 normal. No murmur or gallop heard.] CHEST EXAMINATION:[ Lungs reveal diminished air entry throughout with scattered coarse wheezing. No chest wall tenderness is noted on palpation or with deep breathing.] ABDOMEN: [ Soft, nontender. Bowel sounds are heard. No organomegaly noted]. EXTREMITIES:[ 2+ peripheral pulses with no evidence of peripheral edema and no calf tenderness noted]. NEUROLOGIC [patient is alert, drowsy and oriented x3.] . - Labs CBC & Chem 7: 10/28/17 09:21 10/28/17 09:21 Labs: Abnormal Lab Results - Last 24 Hours (Table) 10/27/17 10/27/17 10/27/17 Range/Units 03:00 14:45 17:04 WBC (3.8-10.6) k/uL Hgb (11.4-16.0) gm/dL Hct (34.0-46.0) % MCHC (31.0-37.0) g/dL RDW (11.5-15.5) % Plt Count (150-450) k/uL Neutrophils # (1.3-7.7) k/uL Neutrophils # (Manual) 23.67 H (1.3-7.7) k/uL Lymphocytes # (1.0-4.8) k/uL Lymphocytes # (Manual) 0.79 L (1.0-4.8) k/uL Monocytes # (Manual) 1.84 H (0-1.0) k/uL APTT 21.8 L (22.0-30.0) sec Potassium (3.5-5.1) mmol/L BUN (7-17) mg/dL Glucose (74-99) mg/dL POC Glucose (mg/dL) 157 H (75-99) mg/dL Calcium (8.4-10.2) mg/dL Magnesium (1.6-2.3) mg/dL Alkaline Phosphatase (38-126) U/L Total Protein (6.3-8.2) g/dL Albumin (3.5-5.0) g/dL 10/27/17 10/28/17 10/28/17 Range/Units 21:21 06:01 09:21 WBC 16.1 H (3.8-10.6) k/uL Hgb 10.2 L (11.4-16.0) gm/dL Hct 33.9 L (34.0-46.0) % MCHC 30.1 L (31.0-37.0) g/dL RDW 16.6 H (11.5-15.5) % Plt Count 571 H (150-450) k/uL Neutrophils # 15.0 H (1.3-7.7) k/uL Neutrophils # (Manual) (1.3-7.7) k/uL Lymphocytes # 0.7 L (1.0-4.8) k/uL Lymphocytes # (Manual) (1.0-4.8) k/uL Monocytes # (Manual) (0-1.0) k/uL APTT (22.0-30.0) sec Potassium (3.5-5.1) mmol/L BUN (7-17) mg/dL Glucose (74-99) mg/dL POC Glucose (mg/dL) 183 H 177 H (75-99) mg/dL Calcium (8.4-10.2) mg/dL Magnesium (1.6-2.3) mg/dL Alkaline Phosphatase (38-126) U/L Total Protein (6.3-8.2) g/dL Albumin (3.5-5.0) g/dL 10/28/17 10/28/17 Range/Units 09:21 11:30 WBC (3.8-10.6) k/uL Hgb (11.4-16.0) gm/dL Hct (34.0-46.0) % MCHC (31.0-37.0) g/dL RDW (11.5-15.5) % Plt Count (150-450) k/uL Neutrophils # (1.3-7.7) k/uL Neutrophils # (Manual) (1.3-7.7) k/uL Lymphocytes # (1.0-4.8) k/uL Lymphocytes # (Manual) (1.0-4.8) k/uL Monocytes # (Manual) (0-1.0) k/uL APTT (22.0-30.0) sec Potassium 3.4 L (3.5-5.1) mmol/L BUN 45 H (7-17) mg/dL Glucose 196 H (74-99) mg/dL POC Glucose (mg/dL) 199 H (75-99) mg/dL Calcium 8.2 L (8.4-10.2) mg/dL Magnesium 2.5 H (1.6-2.3) mg/dL Alkaline Phosphatase 200 H (38-126) U/L Total Protein 5.0 L (6.3-8.2) g/dL Albumin 2.2 L (3.5-5.0) g/dL Microbiology - Last 24 Hours (Table) 10/27/17 16:40 Gram Stain - Preliminary Pleural Fluid Body Fluid Culture - Preliminary 10/27/17 16:40 Anaerobic Culture - Preliminary Pleural Fluid Assessment and Plan Assessment: #1 atrial fibrillation with rapid ventricular response, new onset, paroxysmal. Patient is currently on IV heparin #2 new diagnosis of lung cancer #3 left pleural effusion #4 hypertension #5 hyperlipidemia #6 GERD #7 greater than 60 year one pack per day smoking history #8 diverticulitis with partial colectomy Plan: from cardiology's perspective, we will continue verapamil 40 mg by mouth 3 times a day and IV heparin at this time. She does have coverage for Eliquis which we will likely start tomorrow. continue to follow the patient by further recommendations accordingly. 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 Patient was seen and examined.
--- NOTE | 2017-10-28 15:04 | XR ---
EXAMINATION TYPE: XR chest 1V portable DATE OF EXAM: 10/28/2017 HISTORY: post attempted left thoracentesis. REFERENCE: Previous study dated 10/28/2017. FINDINGS: There is a prominent left-sided effusion with associated atelectasis. Heart size is obscure d but appears enlarged. There is vascular congestion and mild interstitial change. There has been no interval change in the appearance of the chest. No pneumothorax is seen. IMPRESSION: I DO NOT SEE A POSTTHORACENTESIS COMPLICATION.
[2017-10-28] MEDS: SODIUM CHLORIDE 0.9% 1,000 ML IV SCH (15:25)
[2017-10-28] MEDS: WATER FOR INJECTION, STERILE 1,000 ML with SODIUM ACETATE 150 MEQ IV SCH ×2 (15:37)
--- NOTE | 2017-10-28 16:01 | US ---
Discontinued thoracentesis and chest tube placement HISTORY: Abnormal chest x-ray After informed consent the skin overlying a suitable path to the pocket of fluid in the upper left ch est was localized with ultrasound, ultrasound was used to sterile technique. The skin overlying was p repped and draped, lidocaine used for local anesthesia. Skin melanie made with a scalpel. 21-gauge needl e was advanced into the abnormal collection in the pleural space. Attempted aspiration yielded no flu id. Attempt was then made at an additional level more inferiorly in the lateral aspect of the left ch est. Again no fluid was yielded. The exam was aborted. Hemostasis achieved. No immediate complication . Patient remained in stable condition. Postprocedure chest x-rays pending. IMPRESSION: Attempted aspiration, chest tube placement was aborted. The collection is likely organize d.
[2017-10-28 16:06] LABS: Glucose,Whole Blood 271 mg/dL (75-99)
[2017-10-28] MEDS: HEPARIN SOD,PORK IN 0.45% NACL 25,000 UNIT in 0.45% NACL 1 500ML.BAG IV SCH (16:19)
[2017-10-28] MEDS ORDERED: RX INFO: IV CONTRAST WAS GIVEN 1 EACH MISC MISCELLANE PRN (20:22)
--- NOTE | 2017-10-28 20:27 | P.PN ---
Subjective Progress Note Date: 10/28/17 Principal diagnosis: Pleural Effusion and Lung Cancer Patient seen and evalauted today, she is resting. No acute complaints, breathing improved, discomfort from tube Objective - Vital Signs Vital signs: Vital Signs Temp 97.0 F L 10/28/17 11:30 Pulse 88 10/28/17 16:36 Resp 20 10/28/17 15:43 BP 93/60 10/28/17 15:40 Pulse Ox 96 10/28/17 16:22 Intake & Output 10/28/17 10/28/17 10/29/17 06:59 18:59 06:59 Intake Total 1284.14 1153 Output Total 260 570 Balance 1024.14 583 Weight 59.7 kg Intake: IV 1160 0.9 1160 Intake, IV Titration 124.14 755 Amount Heparin Sod,Pork in 0.45% 24.14 NaCl 25,000 unit In 0.45 % NaCl 1 500ml.bag @ 12 UNITS/KG/HR 16.32 mls/hr IV .Q24H [facility] Rx#: [id number] Piperacillin-Tazobactam 3 100 50 .375 gm In Dextrose/Water 1 50ml.bag @ 12.5 mls/hr IVPB Q8H [facility] Rx#: [id number] Sodium Chloride 0.9% 1, 80 000 ml @ 20 mls/hr IV . Q24H [facility] Rx#:[id number] Water For Injection, 625 Sterile 1,000 ml @ 75 mls /hr IV .[id number] [facility] with Sodium Acetate 150 meq Rx #:[id number] Oral 398 Output: Chest Tube Drainage 260 70 Pleural Catheter Left 260 70 Drainage 200 Left Chest 200 Urine 300 Other: Voiding Method Toilet Toilet # Voids 1 - Constitutional General appearance: Present: cooperative, no acute distress - EENT Eyes: Present: EOMI, PERRLA, dentition normal ENT: Present: NA/AT, normal oropharynx - Neck Details: Supple, trachea midline Neck: Present: normal ROM - Respiratory Respiratory: bilateral: diminished (no increased effort, tube CDI in place) - Cardiovascular Rhythm: regular Heart sounds: normal: S1, S2 - Gastrointestinal General gastrointestinal: Present: normal bowel sounds, soft - Integumentary Integumentary: Present: pale - Neurologic Neurologic Comment(s): No focal defects Neurologic: Present: CNII-XII intact - Musculoskeletal Musculoskeletal: Present: generalized weakness, strength equal bilaterally - Psychiatric Psychiatric: Present: A&O x's 3, appropriate affect, intact judgment & insight - Labs CBC & Chem 7: 10/28/17 09:21 10/28/17 09:21 Labs: Abnormal Lab Results - Last 24 Hours (Table) 10/27/17 10/28/17 10/28/17 Range/Units 21:21 06:01 09:21 WBC 16.1 H (3.8-10.6) k/uL Hgb 10.2 L (11.4-16.0) gm/dL Hct 33.9 L (34.0-46.0) % MCHC 30.1 L (31.0-37.0) g/dL RDW 16.6 H (11.5-15.5) % Plt Count 571 H (150-450) k/uL Neutrophils # 15.0 H (1.3-7.7) k/uL Lymphocytes # 0.7 L (1.0-4.8) k/uL Potassium (3.5-5.1) mmol/L BUN (7-17) mg/dL Glucose (74-99) mg/dL POC Glucose (mg/dL) 183 H 177 H (75-99) mg/dL Calcium (8.4-10.2) mg/dL Magnesium (1.6-2.3) mg/dL Alkaline Phosphatase (38-126) U/L Total Protein (6.3-8.2) g/dL Albumin (3.5-5.0) g/dL 10/28/17 10/28/17 10/28/17 Range/Units 09:21 11:30 16:04 WBC (3.8-10.6) k/uL Hgb (11.4-16.0) gm/dL Hct (34.0-46.0) % MCHC (31.0-37.0) g/dL RDW (11.5-15.5) % Plt Count (150-450) k/uL Neutrophils # (1.3-7.7) k/uL Lymphocytes # (1.0-4.8) k/uL Potassium 3.4 L (3.5-5.1) mmol/L BUN 45 H (7-17) mg/dL Glucose 196 H (74-99) mg/dL POC Glucose (mg/dL) 199 H 271 H (75-99) mg/dL Calcium 8.2 L (8.4-10.2) mg/dL Magnesium 2.5 H (1.6-2.3) mg/dL Alkaline Phosphatase 200 H (38-126) U/L Total Protein 5.0 L (6.3-8.2) g/dL Albumin 2.2 L (3.5-5.0) g/dL Microbiology - Last 24 Hours (Table) 10/27/17 16:40 Gram Stain - Preliminary Pleural Fluid Body Fluid Culture - Preliminary Alpha Hemolytic Streptococcus 10/27/17 16:40 Anaerobic Culture - Preliminary Pleural Fluid Assessment and Plan Plan: Assessment and Recommendations: 1. New Diagnosis of Squamous Cell Carcinoma of the left lung - Plan to see Dr. Jackson as outpatient after discharged - Radiation Consultation Reasonable for likely concurrent radiation and chemotherapy as treatment option, defer to Dr. Jackson and radiation for final recommendation. - Imaging of the brain for initial staging is resonable in squamous cell lung cancer stage III, CT Brain ordered - Plan to review diagnosis and treatment options with patient and further in am. 2. Progression in development of worsening left lower lobe consolidation - Concern for post obstructive pneumonia (Leukocytosis also present to assist in favoring infectious component) - IV Zosyn - Primary and Pulmonary - Await Cytology of pleural fluid, if positive would push her staging to IV 3. Acute Respiratory Insufficiency - Underlying chronic COPD - New Non-small cell lung cancer with loculated pleural effusions and concern for increased progression of consolidation 4. Normocytic Anemia - Monitor CBC - Chronic Disease, Inflammation 5. New onset Atrial Fibrillation with RVR Thank You for allowing us to follow along with you, More Recs to follow
[2017-10-28] MEDS: ASPIRIN 81 MG PO SCH (20:46)
[2017-10-28 21:05] LABS: Glucose,Whole Blood 264 mg/dL (75-99)
--- NOTE | 2017-10-28 21:13 | PN ---
PROGRESS NOTE DATE OF SERVICE: 10/28/2017 PRESENTING COMPLAINT: Tired. INTERVAL HISTORY: This is a patient who has squamous cell carcinoma of the lung and now large lung mass. Interventional Radiology put a drain. About 500 mL of pus was obtained. The patient does feel better, sitting up on sitting up on a chair. Did eat a little bit, a bit more perky. REVIEW OF SYSTEMS: Done for constitutional, cardiovascular, GI, pulmonary; relevant findings as above. CURRENT MEDICATIONS: Reviewed that include: 1. DuoNeb. 2. IV Zosyn. 3. Levaquin. EXAMINATION: Temperature 97, pulse 72, respirations 20, blood pressure 98/58, pulse ox 94% on 2L. GENERAL APPEARANCE: Sitting up, tired-appearing. EYES: Pupils equal. Conjunctivae pale. HEENT: External appearance of nose and ears normal. Oral cavity normal. NECK: JVD not raised. Mass not palpable. RESPIRATORY: Effort increased. LUNGS: Decreased breath sounds on the left side and some coarse breath sounds. CHEST WALL: Left-sided chest tube is present. CARDIOVASCULAR: Heart sounds irregular. No edema. ABDOMEN: Soft, nontender. Liver and spleen not palpable. PSYCHIATRY: Alert and oriented x3. Mood and affect more awake. INVESTIGATIONS: White count 16.1, hemoglobin 10.2. Potassium 3.4, BUN 45, creatinine 0.7. ASSESSMENT: 1. Left lung abscess with pigtail catheter in place. 2. Squamous cell cancer. 3. Gastroesophageal reflux disease. 4. Hyperlipidemia. 5. Essential hypertension. 6. Primary osteoarthritis. 7. Acute on chronic acute chronic obstructive pulmonary disease exacerbation in an ex- smoker. 8. Atrial fibrillation, paroxysmal, with rapid ventricular rate, now in sinus rhythm. 9. IV heparin monitoring. PLAN: Care was discussed with Dr. Zamorano. We went through the CT scan. There may be a separate area of loculation that may not be communicating. Maybe Interventional Radiology will try to drain the same. Also, Dr. Zamorano will try to do a bronchoscopy on Tuesday to see if some more drainage can happen. Overall prognosis is guarded. I did talk to the . Meantime, antibiotics are to continue. Patient's body fluid is growing alpha hemolytic strep. The patient was seen by Cardiology, who has the patient on verapamil and IV heparin. They are considering putting the patient on Eliquis. The patient's prognosis is rather guarded, given the severity of the condition. Currently, patient is slow to respond. MMODL / IJN: [id number] /
[2017-10-28] MEDS ORDERED: POTASSIUM CHLORIDE ER 20 MEQ TAB.ER PO STA (21:48)
[2017-10-28] MEDS: LACTULOSE 20 GM/30 ML CUP PO PRN (22:04)
[2017-10-29] MEDS: PIPERACILLIN-TAZOBACTAM 3.375 GM in DEXTROSE/WATER 1 50ML.BAG IVPB SCH ×3 (03:36→22:15)
[2017-10-29] MEDS: methylPREDNISolone SOD SUCCI 40 MG/ML 1 ML VIAL IV SCH ×3 (03:36→22:13)
[2017-10-29] MEDS: IPRATROPIUM-ALBUTEROL 3 ML NEB INHALATION SCH ×5 (05:23→20:19)
[2017-10-29 06:12] LABS: Glucose,Whole Blood 159 mg/dL (75-99)
[2017-10-29] MEDS: INSULIN ASPART 100 UNIT/ML 1 ML 10 ML VIAL SQ SCH ×4 (06:33→21:50)
[2017-10-29] MEDS: NAPROXEN 250 MG TAB PO SCH ×3 (06:33→17:12)
[2017-10-29] MEDS: GEMFIBROZIL 600 MG TAB PO SCH ×2 (06:33→17:12)
[2017-10-29] MEDS: BUDESONIDE 0.5 MG/2 ML NEBU INHALATION SCH ×2 (09:21→20:19)
--- NOTE | 2017-10-29 09:29 | XR ---
EXAMINATION TYPE: XR chest 1V portable DATE OF EXAM: 10/29/2017 HISTORY: left lung mass, pneumonia, empyema, chest tube. REFERENCE: Previous study dated 10/28/2017. FINDINGS: There continues to be a prominent left-sided effusion. There is atelectatic change involvin g the left lung. There is vascular congestion and subtle interstitial change. Heart size is obscured. IMPRESSION: NO SIGNIFICANT INTERVAL CHANGE IN THE APPEARANCE OF THE CHEST.
--- NOTE | 2017-10-29 10:07 | CT ---
EXAMINATION TYPE: CT brain w con DATE OF EXAM: 10/29/2017 COMPARISON: None. HISTORY: Locally advance lung cancer staging CT DLP: 1115 mGycm Automated exposure control for dose reduction was used. CONTRAST: CT scan of the head is performed with IV Contrast, patient injected with 100 ml mL of Isovue 300. FINDINGS: Central structures are midline. There is no evidence of hydrocephalus. There is evidence of an olecra non or infarct in the left hypothalamic region. There is no mass effect, midline shift or intracrania l blood. There is no abnormal enhancement. Visualized portions of the paranasal sinuses and mastoids are clear. The bony calvarium is intact. IMPRESSION: 1. NO EVIDENCE OF METASTATIC DISEASE AT THIS TIME. 2. EVIDENCE OF AN OLD HYPOTHALAMIC INFARCT ON THE LEFT.
[2017-10-29] MEDS: VERAPAMIL 40 MG TAB PO SCH ×3 (10:28→21:49)
[2017-10-29] MEDS: EZETIMIBE 10 MG TAB PO SCH (10:29)
[2017-10-29 11:27] LABS: Glucose,Whole Blood 247 mg/dL (75-99)
[2017-10-29] MEDS: LEVOFLOXACIN 250 MG TAB PO SCH (12:27)
[2017-10-29] MEDS: SODIUM CHLORIDE 0.9% 1,000 ML IV SCH ×2 (12:27→14:30)
[2017-10-29] MEDS ORDERED: RX INFO: IV CONTRAST WAS GIVEN 1 EACH MISC MISCELLANE PRN (12:34)
--- NOTE | 2017-10-29 12:40 | P.PN ---
Subjective Progress Note Date: 10/29/17 This is a pleasant 77-year-old female with a history of hyperlipidemia , hypertension, recent diagnosis of lung cancer, more than 60 pack year smoker, history of diverticulitis with a partial colectomy, GERD, presents to the hospital on this occasion with symptoms of shortness of breath. According to the patient, she follows with Dr. Jacques in the office, and he had mentioned something about a possible thoracentesis. Her chest x-ray on admission revealed findings compatible with patient's history of lung carcinoma, pleural effusion and atelectasis. There is a sizable left pleural effusion noted. EKG on admission here showed a normal sinus rhythm with nonspecific ST-T wave changes. An EKG showed atrial fibrillation with a rapid ventricular response. This morning the patient is back in a normal sinus rhythm. Occasional PVCs and PACs are noted. Patient denies any prior history of atrial fibrillation. patient underwent ultrasound guided chest tube insertion yesterday and she verbalizes feeling quite a bit better today. She remains in sinus rhythm with PVCs and PACs. Her blood pressure is maintained on the low side. She is asymptomatic. She remains on verapamil 40 mg by mouth 3 times a day. Objective - Vital Signs Vital signs: Vital Signs Temp 97.7 F 10/29/17 04:00 Pulse 84 10/29/17 12:10 Resp 18 10/29/17 08:03 BP 100/57 10/29/17 07:55 Pulse Ox 94 L 10/29/17 07:55 Intake & Output 10/28/17 10/29/17 10/29/17 18:59 06:59 18:59 Intake Total 1153 770 Output Total 570 220 Balance 583 550 Weight 61.8 kg Intake: IV 240 0.9 240 Intake, IV Titration 755 50 Amount Piperacillin-Tazobactam 3 50 50 .375 gm In Dextrose/Water 1 50ml.bag @ 12.5 mls/hr IVPB Q8H NIRMALA Rx#: [id number] Sodium Chloride 0.9% 1, 80 000 ml @ 20 mls/hr IV . Q24H NIRMALA Rx#:[id number] Water For Injection, 625 Sterile 1,000 ml @ 75 mls /hr IV .[id number] NIRMALA with Sodium Acetate 150 meq Rx #:[id number] Oral 398 480 Output: Chest Tube Drainage 70 20 Pleural Catheter Left 70 20 Drainage 200 Left Chest 200 Urine 300 200 Other: Voiding Method Toilet Toilet Toilet # Voids 1 1 - Exam PHYSICAL EXAMINATION: HEENT: [Head is atraumatic, normocephalic. Pupils equal, round. Neck is supple. There is no elevated jugular venous pressure.] HEART EXAMINATION: [Heart sounds regular, S1 and S2 normal. No murmur or gallop heard.] CHEST EXAMINATION:[ Lungs reveal diminished air entry throughout. No chest wall tenderness is noted on palpation or with deep breathing.] ABDOMEN: [ Soft, nontender. Bowel sounds are heard. No organomegaly noted]. EXTREMITIES:[ 2+ peripheral pulses with no evidence of peripheral edema and no calf tenderness noted]. NEUROLOGIC [patient is alert, drowsy and oriented x3.] . - Labs CBC & Chem 7: 10/28/17 09:21 10/28/17 09:21 Labs: Abnormal Lab Results - Last 24 Hours (Table) 10/28/17 10/28/17 10/29/17 Range/Units 16:04 21:03 06:11 POC Glucose (mg/dL) 271 H 264 H 159 H (75-99) mg/dL 10/29/17 Range/Units 11:25 POC Glucose (mg/dL) 247 H (75-99) mg/dL Microbiology - Last 24 Hours (Table) 10/27/17 16:40 Gram Stain - Preliminary Pleural Fluid Body Fluid Culture - Preliminary Alpha Hemolytic Streptococcus Assessment and Plan Assessment: #1 atrial fibrillation with rapid ventricular response, new onset, paroxysmal. Patient is currently on IV heparin #2 new diagnosis of lung cancer #3 left pleural effusion #4 hypertension #5 hyperlipidemia #6 GERD #7 greater than 60 year one pack per day smoking history #8 diverticulitis with partial colectomy Plan: from cardiology's perspective, we will continue verapamil 40 mg by mouth 3 times a day. Would like patient to continue on IV heparin and likely transition to by mouth anticoagulation once PULMONARY interventions have been completed. Resume heparin if okay with primary. Continue to follow the patient provide further recommendations accordingly [employer] note has been reviewed, I agree with a documented findings and plan of care. Patient was seen and examined.
--- NOTE | 2017-10-29 14:31 | P.PN ---
Subjective Progress Note Date: 10/29/17 Principal diagnosis: Squamous cell carcinoma of the lung, TNM stage III with postobstructive pneumonia and pleural effusion. A 77-year-old female patient presented to MRSA problem because of worsening shortness of breath. No chest pain. No pleurisy. She felt feverish and she was progressively getting weak over the past few days. In the ED, the patient a temperature of 97.5, pulse rate of 81 which was pulse ox 92% on room air. Her white cell, was 23.7. TPN was up to 50 with a creatinine of 0.9. She was however in metabolic acidosis with a positive anion gap and her bicarb level was at 16. Chest x-ray revealed left lung capacity probably a combination of atelectatic changes along with a loculated left-sided pleural effusion. There is also some air-fluid levels compatible with necrotizing pneumonia/abscess formation. Old rib fractures were seen on the right. Patient was started on IV Zosyn and the patient was admitted to the floor and a pulmonary consultation was requested. I saw this patient in the oncology unit. The patient was found to be also nature fibrillation with rapid ventricular response. The patient will be scheduled to telemetry unit for Cardizem drip and rate control. A echo cardiac exam will also be ordered. This patient is known to our service and she follows up with Dr. Jacques outpatient patient basis. She is known to have COPD. The patient has an FEV1 of 1.48 L. She also has hypertension, mixed hyperlipidemia and most recently she was diagnosed having it, cell carcinoma of the lung. The patient was found to have a left lung mass on a chest x-ray that was on our office back in September 2017 and this was followed up by a CAT scan of the chest that showed a suspicious left infrahilar mass with obstruction/endobronchial narrowing in the left lower lobe and the mass was measuring 5.3 x 4.2 cm in size in addition to some atelectatic changes and left lung base. Based on this, a bronchoscopy was done and the endobronchial biopsies from the left lower lobe showed squamous cell carcinoma. The PET scan that was done for staging purposes on 10/22/2017 showed a sizable left-sided pleural effusion that was loculated along the left lateral chest area that had developed an interval compared to the previous CAT scan on 10/03/2017. There was also uptake noted in the left hilar region, left lower lobe with an SUV of 9-10. There was also air-fluid level and pockets of air present in the left lower lobe possibly due to necrotic tumor although the possibility of postobstructive pneumonia/abscess formation cannot be completely ruled out. Bilateral emphysematous changes were also noted. The patient also had nonunited fractures at the seventh and the sixth rib and the fifth rib on the right laterally. No other uptake within the skeletal system. Note that the patient was already seen at [facility] for a surgical evaluation and she was told that she was not a surgical candidate due to locally advanced disease. The patient is seen today 10/27/2017 in follow-up on the selective care unit. She had an episode of atrial fibrillation with rapid ventricular response yesterday, treated with verapamil and IV heparin. She is currently in sinus rhythm with frequent PACs. She is feeling slightly better today as compared to yesterday. Her O2 saturation is remaining in the 90s on 2 L/m per nasal cannula. She's been afebrile. She remains on Zosyn and Levaquin. The patient is seen again today 10/28/2017 in follow-up on the selective care unit. She is doing better today as compared to yesterday. She is currently sitting up in a chair at the bedside. She is breathing easier. Interventional radiology inserted a pigtail catheter in the left lower lung which is drained approximately 500 ML's of thick purulent drainage. Preliminary findings indicate moderate polymorphonuclear leukocytes, many gram-positive cocci and appears in chains, moderate gram-negative bacilli. She is currently on Zosyn and Levaquin. Chest x-ray does show improved aeration of the lower lobe however there is still pocketed fluid in the left midlung. She is currently afebrile. Maintaining O2 saturations in the 90s on 2 L/m per nasal cannula. White count 16.1. Hemoglobin 10.2. Creatinine 0.70. The patient is seen again today 10/29/2017 in follow-up in the selective care unit. She is currently sitting up in bed. She is awake and alert in no acute distress. She's been up ambulating in her room. She is breathing a little bit better today as compared to yesterday. Interventional radiology was not able to obtain any further fluid in attempt to place a second pigtail catheter upper lateral chest. Suspect an organized collection of fluid. Today's chest x-ray remains the same with prominent left-sided effusion and atelectatic changes of the left lung. He continues to maintain good O2 saturations in the 90s on 2 L/ m per nasal cannula. Objective - Vital Signs Vital signs: Vital Signs Temp 97.7 F 10/29/17 04:00 Pulse 84 10/29/17 12:10 Resp 18 10/29/17 08:03 BP 100/57 10/29/17 07:55 Pulse Ox 94 L 10/29/17 07:55 Intake & Output 10/28/17 10/29/17 10/29/17 18:59 06:59 18:59 Intake Total 1153 770 Output Total 570 220 Balance 583 550 Weight 61.8 kg Intake: IV 240 0.9 240 Intake, IV Titration 755 50 Amount Piperacillin-Tazobactam 3 50 50 .375 gm In Dextrose/Water 1 50ml.bag @ 12.5 mls/hr IVPB Q8H NIRMALA Rx#: [id number] Sodium Chloride 0.9% 1, 80 000 ml @ 20 mls/hr IV . Q24H NIRMALA Rx#:[id number] Water For Injection, 625 Sterile 1,000 ml @ 75 mls /hr IV .[id number] NIRMALA with Sodium Acetate 150 meq Rx #:[id number] Oral 398 480 Output: Chest Tube Drainage 70 20 Pleural Catheter Left 70 20 Drainage 200 Left Chest 200 Urine 300 200 Other: Voiding Method Toilet Toilet Toilet # Voids 1 1 - Exam Appearance, comfortable no acute distress HEENT: Anicteric sclerae, pink and moist conjunctivae. Extraocular movements intact, pupils are reactive to light they are round and equal. External inspection of ears and nose showed normal mucosa. Oral mucosa, soft and hard palate tongue and posterior pharynx are intact. Neck: Supple no neck masses, no JVD, no thyroid enlargement, no adenopathy. Lungs: Symmetrical expansion,Diminished breath sounds and dullness at the left base. Left-sided chest tube remains in place. CVS: Regular rate and rhythm, normal S1 and S2, no gallops, no murmur, no rubs. Abdomen: Soft, nontender, no megaly, no rebound, no guarding, positive bowel sounds. Extremities: No clubbing, no edema, no cyanosis, 2+ pulses in upper and lower extremities. Musculoskeletal: Muscle strength and tone normal. Neurologic: Alert and oriented 3, normal affect, no focal neurologic deficits. Examination of the skin revealed no evidence of significant rashes, suspicious appearing nevi or other concerning lesions. - Labs CBC & Chem 7: 10/28/17 09:21 10/28/17 09:21 Labs: Abnormal Lab Results - Last 24 Hours (Table) 10/28/17 10/28/17 10/29/17 Range/Units 16:04 21:03 06:11 POC Glucose (mg/dL) 271 H 264 H 159 H (75-99) mg/dL 10/29/17 Range/Units 11:25 POC Glucose (mg/dL) 247 H (75-99) mg/dL Microbiology - Last 24 Hours (Table) 10/27/17 16:40 Gram Stain - Preliminary Pleural Fluid Body Fluid Culture - Preliminary Alpha Hemolytic Streptococcus Assessment and Plan Assessment: Assessment 1 squamous cell carcinoma of the lung, TNM stage III at least, This is a recent diagnosis was established few weeks back and a follow-up PET scan showed significant progression with development of worsening left lower lobe consolidation, air fluid level and a loculated pleural effusion on the left lateral chest area. Rule out postobstructive pneumonia with abscess formation and a parapneumonic effusion. Rule out necrosis related to malignancy with malignant pleural effusion. Note that the patient's PET scan was compared to the previous CAT scan that was done 3 weeks ago in September 2017 and there is obvious progression suspicious for the above-mentioned possibilities. Currently on IV Zosyn. Infection is also favored as the patient has developed some leukocytosis and anion gap metabolic acidosis 2 COPD with FEV1 of 1.4 L at baseline 3 new onset atrial fibrillation with rapid ventricular response 3 acute hypoxic respiratory failure secondary to above 5 hyperlipidemia 6 hypertension 7 endobronchial tumor occupying the posterior segment of the left lower lobe, raising the suspicion for a development of a post obstructive pneumonia/abscess formation. 8 leukocytosis secondary to above Plan The patient was seen and evaluated by Dr. Zamorano. Chest x-ray, microbiology and labs all reviewed. Interventional radiology was not able to place a second pigtail catheter in the upper left lateral lung. No fluid was removed and was suspected organized effusion. Lower left lung pigtail catheter remains in place and continues to drain. Her overall prognosis is quite poor. He did have discussions with the patient's sons and daughter who is at the bedside regarding the plan. We will continue to follow. I, the cosigning physician, performed a history & physical examination of the patient. Lungs sounds with few scattered rhonchi, crackles in the left lung, diminished. Maintaining good O2 saturations in the 90s on 2 L/m per nasal cannula. I discussed the assessment and plan of care with my nurse practitioner , Meghana Cruz. I attest to the above note as dictated by her.
[2017-10-29] MEDS: ALPRAZolam 0.25 MG TAB PO PRN ×2 (16:36→23:04)
[2017-10-29 16:54] LABS: Glucose,Whole Blood 178 mg/dL (75-99)
--- NOTE | 2017-10-29 19:20 | PN ---
PROGRESS NOTE DATE OF SERVICE: 10/29/2017 PRESENT COMPLAINT: Tired. INTERVAL HISTORY: This patient with squamous cell carcinoma present with lung abscess and Interventional Radiology put a drain, putting out pus, tolerating some diet. The patient is due for a bronchoscopy on Tuesday. In the interim, will start the patient on Lovenox today. The patient's family visiting. REVIEW OF SYSTEMS: Done for constitutional, cardiovascular, GI, pulmonary; relevant findings as above. CURRENT MEDICATIONS: Reviewed that include: 1. Levaquin and. 2. Zosyn. EXAMINATION: Temperature 96.8, pulse 88, respirations 18, blood pressure 103/54, pulse ox 96% on 2L. GENERAL APPEARANCE: Sitting up. EYES: Pupils equal. Conjunctivae pale. HEENT: External nose and ears normal. Oral cavity normal. NECK: JVD not raised. Mass not palpable. RESPIRATORY: Effort increased. LUNGS: Decreased breath sounds. Patient on the left side some coarse breath sounds. CHEST WALL: Left-sided chest tube present. CARDIOVASCULAR: Heart sounds irregular. No edema. ABDOMEN: Soft, nontender. Liver and spleen not palpable. PSYCHIATRY: Alert and oriented x3. Mood and affect normal. INVESTIGATIONS: Accu-Cheks are noted. ASSESSMENT: 1. Left lung abscess with pigtail catheter in place. 2. Squamous cell lung cancer. 3. Gastroesophageal reflux disease. 4. Hyperlipidemia. 5. Essential hypertension. 6. Primary osteoarthritis. 7. Acute on chronic chronic obstructive pulmonary disease exacerbation in an ex- smoker. 8. Paroxysmal atrial fibrillation with rapid ventricular rate, now remains in sinus rhythm. PLAN: The patient will be switched over to Lovenox 60 mg q.12. Will hold up tomorrow evening's Lovenox in anticipation of bronchoscopy the following day. Care was discussed with the patient. MMODL / IJN: [id number] /
[2017-10-29 21:12] LABS: Glucose,Whole Blood 159 mg/dL (75-99)
[2017-10-29] MEDS: ENOXAPARIN 60 MG/0.6 ML SYRINGE SQ SCH (21:49)
[2017-10-29] MEDS: ASPIRIN 81 MG PO SCH (21:49)
[2017-10-30] MEDS: IPRATROPIUM-ALBUTEROL 3 ML NEB INHALATION SCH ×7 (00:20→23:29)
[2017-10-30] MEDS: PIPERACILLIN-TAZOBACTAM 3.375 GM in DEXTROSE/WATER 1 50ML.BAG IVPB SCH ×3 (04:30→22:09)
[2017-10-30] MEDS: methylPREDNISolone SOD SUCCI 40 MG/ML 1 ML VIAL IV SCH ×3 (04:30→22:10)
[2017-10-30 05:59] LABS: Glucose,Whole Blood 102 mg/dL (75-99)
[2017-10-30] MEDS: INSULIN ASPART 100 UNIT/ML 1 ML 10 ML VIAL SQ SCH ×4 (06:10→22:10)
[2017-10-30] MEDS: GEMFIBROZIL 600 MG TAB PO SCH ×2 (06:45→17:33)
[2017-10-30] MEDS: NAPROXEN 250 MG TAB PO SCH ×3 (06:45→17:33)
[2017-10-30 06:54] LABS: Calcium 8.6 mg/dL (8.4-10.2); Potassium 4.9 mmol/L (3.5-5.1)
[2017-10-30 06:57] LABS: Anisocytosis Slight; Basophils % (A) 0 %; Eosinophils % (A) 0 %; HCT 35.7 % (34.0-46.0); HGB 10.7 gm/dL (11.4-16.0); Hypochromasia Marked; Lymphocytes # (A) 0.6 k/uL (1.0-4.8); Lymphocytes % (A) 5 %; MCH 25.3 pg (25.0-35.0); MCV 84.4 fL (80.0-100.0); Mean Platelet Volume 7.3; Monocytes # (A) 0.2 k/uL (0-1.0); Monocytes % (A) 2 %; Neutrophils # (A) 12.1 k/uL (1.3-7.7); Neutrophils % (A) 93 %; Platelet Count 620 k/uL (150-450); RBC 4.23 m/uL (3.80-5.40); RDW 16.4 % (11.5-15.5)
[2017-10-30] MEDS: BUDESONIDE 0.5 MG/2 ML NEBU INHALATION SCH ×2 (08:00→20:36)
--- NOTE | 2017-10-30 09:43 | CT ---
EXAMINATION TYPE: CT chest w con DATE OF EXAM: 10/30/2017 COMPARISON: Previous study dated 10/03/2017 and previous PET/CT dated 10/22/2017. HISTORY: Weakness, history of brain cancer CT DLP: 1913.9 mGycm Automated exposure control for dose reduction was used. CONTRAST: CT scan of the chest is performed without and with IV Contrast, patient injected with 80 mL of Isovue 300. FINDINGS: There is a worsening loculated effusion on the left. There is associated atelectatic change at the left lung base. The left lower lobe bronchus is attenuated but appears patent. There is mild atelectasis at the right lung base. There is underlying emphysematous change. The patie nt's left lower lobe mass is less clearly defined on this examination. There does appear to be some n ecrosis within the tumor. There is no significant axillary, internal mammary, mediastinal or hilar ad enopathy. There is no pericardial fluid. The heart is mildly enlarged. There is a calcified granuloma within the spleen. The adrenal glands are unremarkable. The liver is u nremarkable. There is hypertrophic spondylosis within the spine. No bony destructive lesion is seen. IMPRESSION: 1. WORSENING LOCULATED EFFUSION ON THE LEFT. 2. EVIDENCE OF NECROSIS IN THE PATIENT'S LEFT LOWER LOBE TUMOR WHICH IS LESS CLEARLY DEFINED ON THIS EXAMINATION. 3. EMPHYSEMA. 4. PARTIAL ATTENUATION OF THE LEFT LOWER LOBE BRONCHUS. 5. 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
[2017-10-30] MEDS: ENOXAPARIN 60 MG/0.6 ML SYRINGE SQ SCH (09:48)
[2017-10-30] MEDS: VERAPAMIL 40 MG TAB PO SCH ×3 (09:49→22:10)
[2017-10-30] MEDS: EZETIMIBE 10 MG TAB PO SCH (09:49)
[2017-10-30] MEDS: LACTULOSE 20 GM/30 ML CUP PO PRN (09:53)
[2017-10-30] MEDS ORDERED: tPA (Alteplase) PER PHARMACY 1 EACH MISC MISCELLANE PRN (10:07)
--- NOTE | 2017-10-30 10:14 | P.PN ---
Subjective Progress Note Date: 10/30/17 Squamous cell carcinoma of the lung, TNM stage III with postobstructive pneumonia and pleural effusion. A 77-year-old female patient presented to MRSA problem because of worsening shortness of breath. No chest pain. No pleurisy. She felt feverish and she was progressively getting weak over the past few days. In the ED, the patient a temperature of 97.5, pulse rate of 81 which was pulse ox 92% on room air. Her white cell, was 23.7. TPN was up to 50 with a creatinine of 0.9. She was however in metabolic acidosis with a positive anion gap and her bicarb level was at 16. Chest x-ray revealed left lung capacity probably a combination of atelectatic changes along with a loculated left-sided pleural effusion. There is also some air-fluid levels compatible with necrotizing pneumonia/abscess formation. Old rib fractures were seen on the right. Patient was started on IV Zosyn and the patient was admitted to the floor and a pulmonary consultation was requested. I saw this patient in the oncology unit. The patient was found to be also nature fibrillation with rapid ventricular response. The patient will be scheduled to telemetry unit for Cardizem drip and rate control. A echo cardiac exam will also be ordered. This patient is known to our service and she follows up with Dr. Jacques outpatient patient basis. She is known to have COPD. The patient has an FEV1 of 1.48 L. She also has hypertension, mixed hyperlipidemia and most recently she was diagnosed having it, cell carcinoma of the lung. The patient was found to have a left lung mass on a chest x-ray that was on our office back in September 2017 and this was followed up by a CAT scan of the chest that showed a suspicious left infrahilar mass with obstruction/endobronchial narrowing in the left lower lobe and the mass was measuring 5.3 x 4.2 cm in size in addition to some atelectatic changes and left lung base. Based on this, a bronchoscopy was done and the endobronchial biopsies from the left lower lobe showed squamous cell carcinoma. The PET scan that was done for staging purposes on 10/22/2017 showed a sizable left-sided pleural effusion that was loculated along the left lateral chest area that had developed an interval compared to the previous CAT scan on 10/03/2017. There was also uptake noted in the left hilar region, left lower lobe with an SUV of 9-10. There was also air-fluid level and pockets of air present in the left lower lobe possibly due to necrotic tumor although the possibility of postobstructive pneumonia/abscess formation cannot be completely ruled out. Bilateral emphysematous changes were also noted. The patient also had nonunited fractures at the seventh and the sixth rib and the fifth rib on the right laterally. No other uptake within the skeletal system. Note that the patient was already seen at [facility] for a surgical evaluation and she was told that she was not a surgical candidate due to locally advanced disease. The patient is seen today 10/27/2017 in follow-up on the selective care unit. She had an episode of atrial fibrillation with rapid ventricular response yesterday, treated with verapamil and IV heparin. She is currently in sinus rhythm with frequent PACs. She is feeling slightly better today as compared to yesterday. Her O2 saturation is remaining in the 90s on 2 L/m per nasal cannula. She's been afebrile. She remains on Zosyn and Levaquin. The patient is seen again today 10/28/2017 in follow-up on the selective care unit. She is doing better today as compared to yesterday. She is currently sitting up in a chair at the bedside. She is breathing easier. Interventional radiology inserted a pigtail catheter in the left lower lung which is drained approximately 500 ML's of thick purulent drainage. Preliminary findings indicate moderate polymorphonuclear leukocytes, many gram-positive cocci and appears in chains, moderate gram-negative bacilli. She is currently on Zosyn and Levaquin. Chest x-ray does show improved aeration of the lower lobe however there is still pocketed fluid in the left midlung. She is currently afebrile. Maintaining O2 saturations in the 90s on 2 L/m per nasal cannula. White count 16.1. Hemoglobin 10.2. Creatinine 0.70. The patient is seen again today 10/29/2017 in follow-up in the selective care unit. She is currently sitting up in bed. She is awake and alert in no acute distress. She's been up ambulating in her room. She is breathing a little bit better today as compared to yesterday. Interventional radiology was not able to obtain any further fluid in attempt to place a second pigtail catheter upper lateral chest. Suspect an organized collection of fluid. Today's chest x-ray remains the same with prominent left-sided effusion and atelectatic changes of the left lung. He continues to maintain good O2 saturations in the 90s on 2 L/ m per nasal cannula. On today's evaluation of 10/31/2079 nursing this patient for a follow-up. Clinically improving and the patient is ambulating pH is afebrile. She had a left lung postobstructive pneumonia and empyema. A pigtail catheter was inserted. Approximately 800 mL of fluid was drained that was purulent and the cultures are showing of the hemolytic strep. The patient a combination of Zosyn and Levaquin. She is improved. She is having less shortness of breath and she looks more active and less lethargic. I repeated the CAT scan of the chest today. The left infrahilar mass is still present. The patient also has a left lower lobe abscess. The loculated pleural effusion on the left is improved and is less and even the left upper extension of the loculated pleural effusion is also smaller in size. Based on this, I decided to give this patient out of place and continue with the drainage procedure for now. The patient is producing approximately 60 mL of output from her chest tube over the past 8-12 hours. Otherwise, no other specific complaints. ID consultation will be obtained regarding lung abscess and empyema. Objective - Vital Signs Vital signs: Vital Signs Temp 97.1 F L 10/30/17 04:00 Pulse 76 10/30/17 08:15 Resp 17 10/30/17 04:00 BP 114/60 10/30/17 04:00 Pulse Ox 93 L 10/30/17 04:00 Intake & Output 10/29/17 10/30/17 10/30/17 18:59 06:59 18:59 Intake Total 830 10 Output Total 1185 220 Balance -355 -210 Weight 62.2 kg Intake: IV 10 Invasive Line 3 10 Intake, IV Titration 290 Amount Piperacillin-Tazobactam 3 50 .375 gm In Dextrose/Water 1 50ml.bag @ 12.5 mls/hr IVPB Q8H NIRMALA Rx#: [id number] Sodium Chloride 0.9% 1, 240 000 ml @ 20 mls/hr IV . Q24H NIRMALA Rx#:[id number] Oral 540 Output: Chest Tube Drainage 60 20 Pleural Catheter Left 60 20 Urine 1125 200 Other: Voiding Method Toilet Toilet # Voids 1 1 # Bowel Movements 1 - Exam Appearance, comfortable no acute distress HEENT: Anicteric sclerae, pink and moist conjunctivae. Extraocular movements intact, pupils are reactive to light they are round and equal. External inspection of ears and nose showed normal mucosa. Oral mucosa, soft and hard palate tongue and posterior pharynx are intact. Neck: Supple no neck masses, no JVD, no thyroid enlargement, no adenopathy. Lungs: Symmetrical expansion,Diminished breath sounds and dullness at the left base. Left-sided chest tube remains in place. CVS: Regular rate and rhythm, normal S1 and S2, no gallops, no murmur, no rubs. Abdomen: Soft, nontender, no megaly, no rebound, no guarding, positive bowel sounds. Extremities: No clubbing, no edema, no cyanosis, 2+ pulses in upper and lower extremities. Musculoskeletal: Muscle strength and tone normal. Neurologic: Alert and oriented 3, normal affect, no focal neurologic deficits. Examination of the skin revealed no evidence of significant rashes, suspicious appearing nevi or other concerning lesions. - Labs CBC & Chem 7: 10/30/17 06:10 10/30/17 06:10 Labs: Abnormal Lab Results - Last 24 Hours (Table) 10/29/17 10/29/17 10/29/17 Range/Units 11:25 16:28 21:10 WBC (3.8-10.6) k/uL Hgb (11.4-16.0) gm/dL MCHC (31.0-37.0) g/dL RDW (11.5-15.5) % Plt Count (150-450) k/uL Neutrophils # (1.3-7.7) k/uL Lymphocytes # (1.0-4.8) k/uL Carbon Dioxide (22-30) mmol/L BUN (7-17) mg/dL Glucose (74-99) mg/dL POC Glucose (mg/dL) 247 H 178 H 159 H (75-99) mg/dL 10/30/17 10/30/17 10/30/17 Range/Units 05:57 06:10 06:10 WBC 13.0 H (3.8-10.6) k/uL Hgb 10.7 L (11.4-16.0) gm/dL MCHC 30.0 L (31.0-37.0) g/dL RDW 16.4 H (11.5-15.5) % Plt Count 620 H (150-450) k/uL Neutrophils # 12.1 H (1.3-7.7) k/uL Lymphocytes # 0.6 L (1.0-4.8) k/uL Carbon Dioxide 32 H (22-30) mmol/L BUN 55 H (7-17) mg/dL Glucose 119 H (74-99) mg/dL POC Glucose (mg/dL) 102 H (75-99) mg/dL Assessment and Plan Plan: Assessment 1 squamous cell carcinoma of the lung, TNM stage III at least, This is a recent diagnosis was established few weeks back and a follow-up PET scan showed significant progression with development of worsening left lower lobe consolidation, air fluid level and a loculated pleural effusion on the left lateral chest area. The patient presented with worsening shortness of breath and worsening respiratory status. Based on the PET scan findings empyema was suspected and the patient had a pigtail catheter inserted and pus was drained and the culture was positive for alpha hemolytic strep and anaerobic cultures still pending for now. Meanwhile the patient was given accommodation of Zosyn and Levaquin. A follow-up CAT scan shows improvement in the left-sided pleural effusion/empyema. There is still some localization on the lateral chest wall on the left. Nevertheless amount of fluid is less in amount of pus is less. There is still a lung abscess in the posterior left lower lobe with some necrosis in addition to a left infrahilar mass. The patient may benefit from out of place insertion for further drainage of the empyema. The patient may need long-term antibiotics and ID consultation will be requested. The patient may need a surgical evaluation at a later stage if the above-mentioned intervention failed to give her significant relief/ recovery. 2 COPD with FEV1 of 1.4 L at baseline 3 new onset atrial fibrillation with rapid ventricular response 3 acute hypoxic respiratory failure secondary to above 5 hyperlipidemia 6 hypertension 7 endobronchial tumor occupying the posterior segment of the left lower lobe, raising the suspicion for a development of a post obstructive pneumonia/abscess formation. 8 leukocytosis secondary to above Plan Continue IV Zosyn and Levaquin. DuoNeb about treatments around the clock. Continue treating the infection. ID consultation for longer-term antibiotic use. The patient will have alteplase inserted today and we'll monitor the drainage and performed a chest x-rays. We'll continue to follow. Clinically improved. May need a bronchoscopy within the next 24-48 hours for possible endoscopic drainage of the lung abscess if there is any airway leading into the abscessed area. Long-term prognosis poor. We'll continue to follow. Her atrial fibrillation has recovered she is on Azopt and and the patient is on no anticoagulants for now.
--- NOTE | 2017-10-30 10:34 | P.PN ---
Subjective Progress Note Date: 10/30/17 Principal diagnosis: Paroxysmal A. fib This is a pleasant 77-year-old female with a history of hyperlipidemia , hypertension, recent diagnosis of lung cancer, more than 60 pack year smoker, history of diverticulitis with a partial colectomy, GERD, presents to the hospital on this occasion with symptoms of shortness of breath. According to the patient, she follows with Dr. Jacques in the office, and he had mentioned something about a possible thoracentesis. Her chest x-ray on admission revealed findings compatible with patient's history of lung carcinoma, pleural effusion and atelectasis. There is a sizable left pleural effusion noted. EKG on admission here showed a normal sinus rhythm with nonspecific ST-T wave changes. An EKG showed atrial fibrillation with a rapid ventricular response. This morning the patient is back in a normal sinus rhythm. Occasional PVCs and PACs are noted. Patient denies any prior history of atrial fibrillation. patient underwent ultrasound guided chest tube insertion yesterday and she verbalizes feeling quite a bit better today. On follow-up with her today, she is feeling better. She is less lethargic. She remains in sinus rhythm with PVCs and PACs. Her blood pressure is maintained on the low side. She is asymptomatic. She remains on verapamil 40 mg by mouth 3 times a day. She was on IV heparin which was stopped for unknown reason. Objective - Vital Signs Vital signs: Vital Signs Temp 97.1 F L 10/30/17 04:00 Pulse 76 10/30/17 08:15 Resp 17 10/30/17 04:00 BP 114/60 10/30/17 04:00 Pulse Ox 93 L 10/30/17 04:00 Intake & Output 10/29/17 10/30/17 10/30/17 18:59 06:59 18:59 Intake Total 830 10 Output Total 1185 220 Balance -355 -210 Weight 62.2 kg Intake: IV 10 Invasive Line 3 10 Intake, IV Titration 290 Amount Piperacillin-Tazobactam 3 50 .375 gm In Dextrose/Water 1 50ml.bag @ 12.5 mls/hr IVPB Q8H [facility] Rx#: [id number] Sodium Chloride 0.9% 1, 240 000 ml @ 20 mls/hr IV . Q24H NIRMALA Rx#:[id number] Oral 540 Output: Chest Tube Drainage 60 20 Pleural Catheter Left 60 20 Urine 1125 200 Other: Voiding Method Toilet Toilet # Voids 1 1 # Bowel Movements 1 - Constitutional General appearance: Present: no acute distress - Respiratory Respiratory: bilateral: CTA - Cardiovascular Rhythm: regular Heart sounds: normal: S1, S2 - Labs CBC & Chem 7: 10/30/17 06:10 10/30/17 06:10 Labs: Abnormal Lab Results - Last 24 Hours (Table) 10/29/17 10/29/17 10/29/17 Range/Units 11:25 16:28 21:10 WBC (3.8-10.6) k/uL Hgb (11.4-16.0) gm/dL MCHC (31.0-37.0) g/dL RDW (11.5-15.5) % Plt Count (150-450) k/uL Neutrophils # (1.3-7.7) k/uL Lymphocytes # (1.0-4.8) k/uL Carbon Dioxide (22-30) mmol/L BUN (7-17) mg/dL Glucose (74-99) mg/dL POC Glucose (mg/dL) 247 H 178 H 159 H (75-99) mg/dL 10/30/17 10/30/17 10/30/17 Range/Units 05:57 06:10 06:10 WBC 13.0 H (3.8-10.6) k/uL Hgb 10.7 L (11.4-16.0) gm/dL MCHC 30.0 L (31.0-37.0) g/dL RDW 16.4 H (11.5-15.5) % Plt Count 620 H (150-450) k/uL Neutrophils # 12.1 H (1.3-7.7) k/uL Lymphocytes # 0.6 L (1.0-4.8) k/uL Carbon Dioxide 32 H (22-30) mmol/L BUN 55 H (7-17) mg/dL Glucose 119 H (74-99) mg/dL POC Glucose (mg/dL) 102 H (75-99) mg/dL Assessment and Plan Assessment: Assessment #1 paroxysmal atrial fibrillation and the patient has been maintaining normal sinus mechanism #2 left pleural effusion and status post drainage. The drainage tube still there #3 history of lung cancer Plan #1 the patient has been maintaining normal sinus mechanism on the current dose of verapamil #2 continue following up with the patient.
[2017-10-30] MEDS ORDERED: ALTEPLASE 10 MG in SODIUM CHLORIDE 0.9% 100 ML IRRIGATION ONE (11:00)
[2017-10-30] MEDS: ALPRAZolam 0.25 MG TAB PO PRN ×3 (11:04→23:46)
[2017-10-30 11:28] LABS: Glucose,Whole Blood 260 mg/dL (75-99)
[2017-10-30] MEDS: SODIUM CHLORIDE 0.9% 1,000 ML IV SCH (11:57)
[2017-10-30] MEDS: LEVOFLOXACIN 250 MG TAB PO SCH (11:58)
[2017-10-30 16:48] LABS: Glucose,Whole Blood 158 mg/dL (75-99)
[2017-10-30 21:00] LABS: Glucose,Whole Blood 195 mg/dL (75-99)
[2017-10-30] MEDS: ASPIRIN 81 MG PO SCH (22:10)
[2017-10-31] MEDS: IPRATROPIUM-ALBUTEROL 3 ML NEB INHALATION SCH ×5 (03:18→19:09)
[2017-10-31] MEDS: PIPERACILLIN-TAZOBACTAM 3.375 GM in DEXTROSE/WATER 1 50ML.BAG IVPB SCH ×3 (04:16→20:31)
[2017-10-31] MEDS: methylPREDNISolone SOD SUCCI 40 MG/ML 1 ML VIAL IV SCH (04:17)
[2017-10-31 06:38] LABS: Glucose,Whole Blood 180 mg/dL (75-99)
[2017-10-31 06:54] LABS: Calcium 8.6 mg/dL (8.4-10.2); Potassium 5.4 mmol/L (3.5-5.1)
[2017-10-31] MEDS: INSULIN ASPART 100 UNIT/ML 1 ML 10 ML VIAL SQ SCH ×4 (07:06→20:39)
[2017-10-31] MEDS: BUDESONIDE 0.5 MG/2 ML NEBU INHALATION SCH ×2 (08:09→19:09)
[2017-10-31] MEDS: ALPRAZolam 0.25 MG TAB PO PRN ×2 (10:46→20:31)
--- NOTE | 2017-10-31 11:28 | PN ---
PROGRESS NOTE DATE OF SERVICE: 10/30/2017 PRESENTING COMPLAINT: Tired. INTERVAL HISTORY: This patient was seen by me yesterday afternoon. Has squamous cell lung cancer. Now admitted with lung abscess with 3 major pockets. Has a pigtail in place, pus draining well. Is on broad-spectrum antibiotics. Does feel tired. Patient also was admitted with atrial fibrillation, now back in sinus rhythm for which patient is on Lovenox. REVIEW OF SYSTEMS: Review of systems done for constitutional, cardiovascular, GI, pulmonary; relevant findings as above. CURRENT MEDICATIONS: Current medications are reviewed that include DuoNeb, IV Solu-Medrol, IV Zosyn. PHYSICAL EXAMINATION: On examination, temperature 97.6, pulse 61, respiratory 18, blood pressure 113/62 pulse 95% on 2 L. GENERAL APPEARANCE: Sitting up, tired appearing. EYES: Pupils equal. Conjunctivae pale. HENT: External appearance of nose and ears normal. Oral cavity normal. NECK: JVD not raised. Mass not palpable. RESPIRATORY: Effort increased. LUNGS: Decreased breath sounds with some coarse breath sounds. CARDIOVASCULAR: First and second sounds normal. No edema. ABDOMEN: Soft, nontender. Liver and spleen not palpable. PSYCHIATRY: Alert and oriented x3. Mood and affect normal. Chest wall has got a pigtail in place. INVESTIGATIONS: White count 13, hemoglobin 10.7, platelets 620. Potassium 4.9, BUN 55, creatinine 0.81. CT scan of the chest from this morning showing worsening loculated effusion on the left with evidence of necrosis of the left lower lobe tumor. ASSESSMENT: 1. Squamous cell lung cancer, recent diagnosis with no initiation of treatment currently. 2. Left lung abscess with large pockets with the pigtail catheter in place. Plan maybe is to proceed with a bronchoscopy in 24 to 48 hours for better drainage. 3. Gastroesophageal reflux disease. 4. Hyperlipidemia. 5. Essential hypertension. 6. Primary osteoarthritis. 7. Acute on chronic COPD exacerbation in an ex-smoker, improving. 8. Paroxysmal atrial fibrillation with rapid ventricular rate on presentation, now patient is in sinus rhythm for which patient is on Lovenox. PLAN: Lovenox was held the evening dose because of possible bronchoscopy tomorrow. Antibiotics are to continue. Patient's prognosis is not good. Pleural fluid has grown Streptococci and other bacteria are pending. Infectious Disease was consulted. Care was discussed with the patient. Will decrease the Solu-Medrol. MMODL / IJN: [id number] /
[2017-10-31 11:36] LABS: Glucose,Whole Blood 148 mg/dL (75-99)
[2017-10-31] MEDS: NAPROXEN 250 MG TAB PO SCH ×3 (11:36→17:45)
[2017-10-31] MEDS: GEMFIBROZIL 600 MG TAB PO SCH ×2 (11:41→17:45)
[2017-10-31] MEDS: predniSONE 20 MG TAB PO SCH (11:41)
[2017-10-31] MEDS: EZETIMIBE 10 MG TAB PO SCH (11:41)
[2017-10-31] MEDS: VERAPAMIL 40 MG TAB PO SCH ×3 (11:42→20:31)
[2017-10-31] MEDS: LEVOFLOXACIN 250 MG TAB PO SCH (11:43)
--- NOTE | 2017-10-31 12:17 | P.CONS ---
History of Present Illness - Reason for Consult Consult date: 10/31/17 Empyema - History of Present Illness This is a 77-year-old female patient with past medical history significant for squamous cell carcinoma of the lung. This was initially worked up and September of this year status post bronchoscopy with pathology for squamous cell carcinoma of the lung. PET scan was done October 22 that failed to show evidence of metastatic disease. There was significant progression and development of worsening left lower lobe consolidation, air fluid level and a loculated pleural effusion on the left lateral chest area It did show SUV uptake to the left lobe mass at 910. He has been seen at [facility] for surgical evaluation and told she was not a surgical candidate due to the location of her locally advanced disease. She was set up to see Dr. Tavarez and Dr Jacques is her pulmonary doctor. Patient presented to [facility] emergency center on October 26 with shortness of breath and weakness. She has been treated for empyema and has been on Zosyn and Levaquin. She has had a pigtail catheter inserted and pus was drained and culture is positive for alphahemolytic strep and anaerobic cultures are positive for gram-negative bacilli, gram-positive cocci and a second gram-negative bacilli. Prolonged oral cytology is also pending. There is concern that there is still a abscess in the posterior left lower lobe with some necrosis in addition to the left infrahilar mass. The patient may require long-term IV antibiotics and thus this consult was requested. The patient does state that her breathing is somewhat improved since she came in. She is anticipating that she may have a procedure today and is NPO. Her white count has improved from 23 down to 13 and she has been afebrile. Vital signs have been stable. Case management has set her up for nebulizer and oxygen at home. Patient verbalizes that she plans to return home at the time of discharge. During her stay she has had several episodes of atrial fibrillation with rapid ventricular response and followed by cardiology. Oncology is also following the patient.n Review of Systems All systems: negative Constitutional: Reports fatigue, Reports lethargy, Reports malaise, Reports poor appetite, Denies chills, Denies fever, Denies sweats Eyes: denies blurred vision, denies pain Ears, nose, mouth and throat: Reports mouth pain, Denies dental pain, Denies headache, Denies sore throat Cardiovascular: Reports edema (Bilateral hand and lower extremity edema), Reports leg edema, Reports shortness of breath, Denies chest pain, Denies syncope Respiratory: Reports dyspnea, Denies cough, Denies excessive sputum, Denies home oxygen Gastrointestinal: Reports loss of appetite, Denies abdominal pain, Denies diarrhea, Denies nausea, Denies vomiting Genitourinary: Denies dysuria, Denies hematuria Musculoskeletal: Denies myalgias Integumentary: Denies pruritus, Denies rash Neurological: Denies numbness, Denies weakness Psychiatric: Denies anxiety, Denies depression Endocrine: Denies fatigue, Denies weight change Past Medical History Past Medical History: Cancer, GERD/Reflux, Hyperlipidemia, Hypertension, Osteoarthritis (OA), Skin Disorder Additional Past Medical History / Comment(s): Squamous for carcinoma of the lung , locally advanced at least stage III, left-sided pleural effusion, hyperlipidemia, hypertension, COPD, recurrent UTIs, history of psoriasis, colonic polyps, history of benign bilaterally breast lesions with previous lumpectomies, osteoarthritis History of Any Multi-Drug Resistant Organisms: None Reported Past Surgical History: Cholecystectomy, Hysterectomy Additional Past Surgical History / Comment(s): 10/13/17 bronchoscopy with BAL/bx/ brushings, partial colectomy, bilateral multiple breast lumpectomies/biopsies all benign, colonoscopy/benign polypectomy. Past Anesthesia/Blood Transfusion Reactions: No Reported Reaction Smoking Status: Former smoker Additional Past Alcohol Use History / Comment(s): Patient was a smoker of three- quarter pack per day for 50 years and quit 2-3 weeks ago. She drinks occasionally and has 3 glasses of wine per week. She denies any marijuana street drug use. She is retired and lives at home with her . - Past Family History Father Family Medical History: Cancer Additional Family Medical History / Comment(s): Father had leukemia. Mother Family Medical History: Cancer Additional Family Medical History / Comment(s): Mother had breast cancer. Sister(s) Family Medical History: Cancer Additional Family Medical History / Comment(s): Sister had colon cancer. Medications and Allergies Home Medications Medication Instructions Recorded Confirmed Type Ezetimibe [Zetia] 10 mg PO DAILY 10/15/13 10/26/17 History Albuterol Sulfate [Proair Hfa] 2 puff INHALATION RT-Q6H PRN 10/26/17 10/26/17 History Aspirin EC [Ecotrin Low Dose] 81 mg PO HS 10/26/17 10/26/17 History Gemfibrozil [Lopid] 600 mg PO AC-BID 10/26/17 10/26/17 History Levofloxacin [Levaquin] 500 mg PO DAILY 10/26/17 10/26/17 History amLODIPine [Norvasc] 10 mg PO DAILY 10/26/17 10/26/17 History predniSONE See Taper PO DAILY 10/26/17 10/26/17 History Allergies Allergy/AdvReac Type Severity Reaction Status Date / Time benazepril HCl [From Lotrel] Allergy Swelling Verified 10/26/17 10:13 Physical Exam Vitals: Vital Signs Temp Pulse Pulse Resp BP BP Pulse Ox 10/31/17 09:25 96.5 F L 87 16 100/53 93 L 10/31/17 08:25 88 10/31/17 08:12 84 91 L 10/31/17 04:00 85 18 118/61 91 L 10/31/17 00:00 97.1 F L 76 18 130/62 90 L 10/30/17 20:00 97.2 F L 85 18 133/63 92 L 10/30/17 16:00 61 18 10/30/17 15:30 97.6 F 61 18 113/62 95 Intake and Output 10/30/17 10/31/17 10/31/17 22:59 06:59 14:59 Intake Total 240 Output Total 1925 500 270 Balance -1685 -500 -270 Intake: Oral 240 Output: Chest Tube Drainage 125 0 270 Pleural Catheter Left 125 0 270 Urine 1800 500 Other: Voiding Method Toilet Toilet # Voids 1 1 Weight 62.1 kg Gen: This is a 77-year-old female. She is in bed and appears to be comfortable. No acute respiratory distress is noted. HEENT: Head is atraumatic, normocephalic. Pupils equal, round. Sclerae is anicteric. NECK: Supple. No JVD. No lymphadenopathy. No thyromegaly. LUNGS: Scattered rhonchi. No intercostal retractions. Left posterior chest tube in place. HEART: Regular rate and rhythm. No murmur. ABDOMEN: Soft. Bowel sounds are present. No masses. No tenderness. EXTREMITIES: Trace bilateral pedal edema. No calf tenderness. Dorsalis pedis + 2 bilaterally. Chronic dark skin changes to the bilateral lower legs. Bilateral hand edema. NEUROLOGICAL: Patient is awake, alert and oriented x3. Cranial nerves 2 through 12 are grossly intact. Results Results: Laboratory Results WBC 13.0 k/uL (3.8-10.6) H 10/30/17 06:10 RBC 4.23 m/uL (3.80-5.40) 10/30/17 06:10 Hgb 10.7 gm/dL (11.4-16.0) L 10/30/17 06:10 Hct 35.7 % (34.0-46.0) 10/30/17 06:10 MCV 84.4 fL (80.0-100.0) 10/30/17 06:10 MCH 25.3 pg (25.0-35.0) 10/30/17 06:10 MCHC 30.0 g/dL (31.0-37.0) L 10/30/17 06:10 RDW 16.4 % (11.5-15.5) H 10/30/17 06:10 Plt Count 620 k/uL (150-450) H 10/30/17 06:10 Neutrophils % 93 % 10/30/17 06:10 Neutrophils % (Manual) 90 % 10/27/17 03:00 Band Neutrophils % 2 % 10/26/17 10:25 Lymphocytes % 5 % 10/30/17 06:10 Lymphocytes % (Manual) 3 % 10/27/17 03:00 Monocytes % 2 % 10/30/17 06:10 Monocytes % (Manual) 7 % 10/27/17 03:00 Eosinophils % 0 % 10/30/17 06:10 Basophils % 0 % 10/30/17 06:10 Neutrophils # 12.1 k/uL (1.3-7.7) H 10/30/17 06:10 Neutrophils # (Manual) 23.67 k/uL (1.3-7.7) H 10/27/17 03:00 Lymphocytes # 0.6 k/uL (1.0-4.8) L 10/30/17 06:10 Lymphocytes # (Manual) 0.79 k/uL (1.0-4.8) L 10/27/17 03:00 Monocytes # 0.2 k/uL (0-1.0) 10/30/17 06:10 Monocytes # (Manual) 1.84 k/uL (0-1.0) H 10/27/17 03:00 Eosinophils # 0.0 k/uL (0-0.7) 10/30/17 06:10 Basophils # 0.0 k/uL (0-0.2) 10/30/17 06:10 Nucleated RBCs 0 /100 WBC (0-0) 10/27/17 03:00 Manual Slide Review Performed 10/26/17 10:25 Toxic Vacuolation Present 10/26/17 10:25 Polychromasia Present 10/26/17 10:25 Hypochromasia Marked 10/30/17 06:10 Poikilocytosis (manual Present 10/26/17 10:25 Anisocytosis Slight 10/30/17 06:10 PT 9.8 sec (9.0-12.0) 10/26/17 10:25 INR 1.0 (<1.2) 10/26/17 10:25 APTT 21.8 sec (22.0-30.0) L 10/27/17 14:45 Sodium 140 mmol/L (137-145) 10/31/17 06:20 Potassium 5.4 mmol/L (3.5-5.1) H 10/31/17 06:20 Chloride 106 mmol/L (98-107) 10/31/17 06:20 Carbon Dioxide 31 mmol/L (22-30) H 10/31/17 06:20 Anion Gap 3 mmol/L 10/31/17 06:20 BUN 47 mg/dL (7-17) H 10/31/17 06:20 Creatinine 0.76 mg/dL (0.52-1.04) 10/31/17 06:20 Est GFR (CKD-EPI)AfAm 87 (>60 ml/min/1.73 sqM) 10/31/17 06:20 Est GFR (CKD-EPI)NonAf 76 (>60 ml/min/1.73 sqM) 10/31/17 06:20 Glucose 160 mg/dL (74-99) H 10/31/17 06:20 POC Glucose (mg/dL) 148 mg/dL (75-99) H 10/31/17 11:34 POC Glu Health Analyst ID Krystin Ochoa 10/31/17 11:34 Plasma Lactic Acid Jethro 1.6 mmol/L (0.7-2.0) 10/26/17 10:25 Calcium 8.6 mg/dL (8.4-10.2) 10/31/17 06:20 Magnesium 2.5 mg/dL (1.6-2.3) H 10/28/17 09:21 Total Bilirubin 0.6 mg/dL (0.2-1.3) 10/28/17 09:21 AST 35 U/L (14-36) 10/28/17 09:21 ALT 45 U/L (9-52) 10/28/17 09:21 Alkaline Phosphatase 200 U/L (38-126) H 10/28/17 09:21 Lactate Dehydrogenase 795 U/L (313-618) H 10/27/17 02:52 Total Creatine Kinase <20 U/L (30-135) L 10/26/17 10:25 CK-MB (CK-2) 1.6 ng/mL (0.0-2.4) 10/26/17 10:25 CK-MB (CK-2) Rel Index 10/26/17 10:25 Troponin I <0.012 ng/mL (0.000-0.034) 10/26/17 10:25 NT-Pro-B Natriuret Pep 1700 pg/mL 10/26/17 10:25 Total Protein 5.0 g/dL (6.3-8.2) L 10/28/17 09:21 Albumin 2.2 g/dL (3.5-5.0) L 10/28/17 09:21 TSH 1.090 mIU/L (0.465-4.680) 10/27/17 02:52 Fluid Source Pleural 10/27/17 16:40 Fluid Appearance Cloudy 10/27/17 16:40 Fluid RBC 1500 /uL 10/27/17 16:40 Fluid Nucleated Cells 3900 /uL 10/27/17 16:40 Fluid Polynuclear WBCs 62 % 10/27/17 16:40 Fluid Mononuclear WBCs 36 % 10/27/17 16:40 Fluid Eosinophils 2 % 10/27/17 16:40 Body Fluid Glucose Source Pleural Fluid 10/27/17 16:40 Fluid Glucose <4 mg/dL 10/27/17 16:40 Body Fluid Protein Source Pleural Fluid 10/27/17 16:40 Fluid Total Protein 1065.0 mg/dL 10/27/17 16:40 Body Fluid LDH Source Pleural Fluid 10/27/17 16:40 Fluid LDH 3718 U/L 10/27/17 16:40 CBC & Chem 7: 10/30/17 06:10 10/31/17 06:20 Labs: Abnormal Lab Results - Last 24 Hours (Table) 10/30/17 10/30/17 10/31/17 Range/Units 16:43 20:53 06:20 Potassium 5.4 H (3.5-5.1) mmol/L Carbon Dioxide 31 H (22-30) mmol/L BUN 47 H (7-17) mg/dL Glucose 160 H (74-99) mg/dL POC Glucose (mg/dL) 158 H 195 H (75-99) mg/dL 10/31/17 Range/Units 06:37 Potassium (3.5-5.1) mmol/L Carbon Dioxide (22-30) mmol/L BUN (7-17) mg/dL Glucose (74-99) mg/dL POC Glucose (mg/dL) 180 H (75-99) mg/dL Microbiology - Last 24 Hours (Table) 10/27/17 16:40 Anaerobic Culture - Final Pleural Fluid Anaerobic Gm Negative Bacilli Anaerobic Gram Positive Cocci Anaerobic Gm Negative Bacilli#2 Assessment and Plan Plan: This is a 77-year-old female patient who presented to the hospital with gram-negative pneumonia with underlying history of squamous cell carcinoma of the lung, empyema and possible abscess formation in the left lower lobe status post pigtail catheter placement in the left lower lung. Patient is currently on Zosyn and Levaquin which will be continued. Pleural fluid culture is showing alphahemolytic strep and gram-positive and gram-negative anaerobic organisms. Continue supportive care. Further recommendations as patient progresses. The above dictated assessment and findings were discussed with Dr. Pereira. The impression and plan of care have been directed as dictated. Danielle Pierre nurse practitioner acting as scribe for Dr. Pereira.
--- NOTE | 2017-10-31 13:49 | P.PN ---
Subjective Progress Note Date: 10/31/17 This is a pleasant 77-year-old female with a history of hyperlipidemia , hypertension, recent diagnosis of lung cancer, more than 60 pack year smoker, history of diverticulitis with a partial colectomy, GERD, presents to the hospital on this occasion with symptoms of shortness of breath. According to the patient, she follows with Dr. Jacques in the office, and he had mentioned something about a possible thoracentesis. Her chest x-ray on admission revealed findings compatible with patient's history of lung carcinoma, pleural effusion and atelectasis. There is a sizable left pleural effusion noted. EKG on admission here showed a normal sinus rhythm with nonspecific ST-T wave changes. An EKG showed atrial fibrillation with a rapid ventricular response. This morning the patient is back in a normal sinus rhythm. Occasional PVCs and PACs are noted. Patient denies any prior history of atrial fibrillation. patient underwent ultrasound guided chest tube insertion yesterday and she verbalizes feeling quite a bit better today. She remains in sinus rhythm with PVCs and PACs. She remains on verapamil 40 mg by mouth 3 times a day. Following alteplase insertion yesterday, chest tube output has increased. She is not really anticoagulated. Objective - Vital Signs Vital signs: Vital Signs Temp 96.6 F L 10/31/17 11:44 Pulse 88 10/31/17 12:12 Resp 18 10/31/17 11:44 BP 111/62 10/31/17 11:44 Pulse Ox 93 L 10/31/17 11:44 Intake & Output 10/30/17 10/31/17 10/31/17 18:59 06:59 18:59 Intake Total 640 Output Total 2425 500 390 Balance -1785 -500 -390 Weight 62.1 kg Intake: IV 140 0.9 80 Invasive Line 3 10 Piperacillin-Tazobactam 3 50 .375 gm In Dextrose/Water 1 50ml.bag @ 12.5 mls/hr IVPB Q8H NIRMALA Rx#: [id number] Oral 500 Output: Chest Tube Drainage 175 0 390 Pleural Catheter Left 175 0 390 Urine 2250 500 Other: Voiding Method Toilet Toilet Toilet # Voids 1 1 # Bowel Movements 1 - Exam PHYSICAL EXAMINATION: HEENT: Head is atraumatic, normocephalic. Pupils equal, round. Neck is supple. There is no elevated jugular venous pressure. HEART EXAMINATION: Heart sounds regular, S1 and S2 normal. No murmur or gallop heard. CHEST EXAMINATION: Lungs reveal diminished air entry throughout. No chest wall tenderness is noted on palpation or with deep breathing. ABDOMEN: Soft, nontender. Bowel sounds are heard. No organomegaly noted. EXTREMITIES: 2+ peripheral pulses with no evidence of peripheral edema and no calf tenderness noted. NEUROLOGIC patient is alert, drowsy and oriented x3. . - Labs CBC & Chem 7: 10/30/17 06:10 10/31/17 06:20 Labs: Abnormal Lab Results - Last 24 Hours (Table) 10/30/17 10/30/17 10/31/17 Range/Units 16:43 20:53 06:20 Potassium 5.4 H (3.5-5.1) mmol/L Carbon Dioxide 31 H (22-30) mmol/L BUN 47 H (7-17) mg/dL Glucose 160 H (74-99) mg/dL POC Glucose (mg/dL) 158 H 195 H (75-99) mg/dL 10/31/17 10/31/17 Range/Units 06:37 11:34 Potassium (3.5-5.1) mmol/L Carbon Dioxide (22-30) mmol/L BUN (7-17) mg/dL Glucose (74-99) mg/dL POC Glucose (mg/dL) 180 H 148 H (75-99) mg/dL Microbiology - Last 24 Hours (Table) 10/27/17 16:40 Anaerobic Culture - Final Pleural Fluid Anaerobic Gm Negative Bacilli Anaerobic Gram Positive Cocci Anaerobic Gm Negative Bacilli#2 Assessment and Plan Assessment: #1 atrial fibrillation with rapid ventricular response, new onset, paroxysmal. #2 new diagnosis of lung cancer #3 left pleural effusion, status post drainage, drain remains #4 hypertension #5 hyperlipidemia #6 GERD #7 greater than 60 year one pack per day smoking history #8 diverticulitis with partial colectomy Plan: from cardiology's perspective, we will continue verapamil 40 mg by mouth 3 times a day. Our recommendation would be to resume anticoagulation with either heparin or Lovenox. Once invasive workup is completed start Eliquis 5 milligrams by mouth twice a day. At this time, will follow with the patient on an as-needed basis. Please do not hesitate to contact us with questions. LICENSED SURVEYOR note has been reviewed, I agree with a documented findings and plan of care. Patient was seen and examined.
[2017-10-31] MEDS ORDERED: ALTEPLASE 10 MG in SODIUM CHLORIDE 0.9% 100 ML IRRIGATION ONE (14:00)
[2017-10-31] MEDS: LACTULOSE 20 GM/30 ML CUP PO PRN (14:09)
[2017-10-31] MEDS ORDERED: ENOXAPARIN 60 MG/0.6 ML SYRINGE SQ STA (14:20)
--- NOTE | 2017-10-31 14:33 | P.PN ---
Subjective Progress Note Date: 10/31/17 Principal diagnosis: Squamous cell carcinoma of the lung, tandem stage III with postobstructive pneumonia and pleural effusion A 77-year-old female patient presented to MRSA problem because of worsening shortness of breath. No chest pain. No pleurisy. She felt feverish and she was progressively getting weak over the past few days. In the ED, the patient a temperature of 97.5, pulse rate of 81 which was pulse ox 92% on room air. Her white cell, was 23.7. TPN was up to 50 with a creatinine of 0.9. She was however in metabolic acidosis with a positive anion gap and her bicarb level was at 16. Chest x-ray revealed left lung capacity probably a combination of atelectatic changes along with a loculated left-sided pleural effusion. There is also some air-fluid levels compatible with necrotizing pneumonia/abscess formation. Old rib fractures were seen on the right. Patient was started on IV Zosyn and the patient was admitted to the floor and a pulmonary consultation was requested. I saw this patient in the oncology unit. The patient was found to be also nature fibrillation with rapid ventricular response. The patient will be scheduled to telemetry unit for Cardizem drip and rate control. A echo cardiac exam will also be ordered. This patient is known to our service and she follows up with Dr. Jacques outpatient patient basis. She is known to have COPD. The patient has an FEV1 of 1.48 L. She also has hypertension, mixed hyperlipidemia and most recently she was diagnosed having it, cell carcinoma of the lung. The patient was found to have a left lung mass on a chest x-ray that was on our office back in September 2017 and this was followed up by a CAT scan of the chest that showed a suspicious left infrahilar mass with obstruction/endobronchial narrowing in the left lower lobe and the mass was measuring 5.3 x 4.2 cm in size in addition to some atelectatic changes and left lung base. Based on this, a bronchoscopy was done and the endobronchial biopsies from the left lower lobe showed squamous cell carcinoma. The PET scan that was done for staging purposes on 10/22/2017 showed a sizable left-sided pleural effusion that was loculated along the left lateral chest area that had developed an interval compared to the previous CAT scan on 10/03/2017. There was also uptake noted in the left hilar region, left lower lobe with an SUV of 9-10. There was also air-fluid level and pockets of air present in the left lower lobe possibly due to necrotic tumor although the possibility of postobstructive pneumonia/abscess formation cannot be completely ruled out. Bilateral emphysematous changes were also noted. The patient also had nonunited fractures at the seventh and the sixth rib and the fifth rib on the right laterally. No other uptake within the skeletal system. Note that the patient was already seen at [facility] for a surgical evaluation and she was told that she was not a surgical candidate due to locally advanced disease. The patient is seen today 10/27/2017 in follow-up on the selective care unit. She had an episode of atrial fibrillation with rapid ventricular response yesterday, treated with verapamil and IV heparin. She is currently in sinus rhythm with frequent PACs. She is feeling slightly better today as compared to yesterday. Her O2 saturation is remaining in the 90s on 2 L/m per nasal cannula. She's been afebrile. She remains on Zosyn and Levaquin. The patient is seen again today 10/28/2017 in follow-up on the selective care unit. She is doing better today as compared to yesterday. She is currently sitting up in a chair at the bedside. She is breathing easier. Interventional radiology inserted a pigtail catheter in the left lower lung which is drained approximately 500 ML's of thick purulent drainage. Preliminary findings indicate moderate polymorphonuclear leukocytes, many gram-positive cocci and appears in chains, moderate gram-negative bacilli. She is currently on Zosyn and Levaquin. Chest x-ray does show improved aeration of the lower lobe however there is still pocketed fluid in the left midlung. She is currently afebrile. Maintaining O2 saturations in the 90s on 2 L/m per nasal cannula. White count 16.1. Hemoglobin 10.2. Creatinine 0.70. The patient is seen again today 10/29/2017 in follow-up in the selective care unit. She is currently sitting up in bed. She is awake and alert in no acute distress. She's been up ambulating in her room. She is breathing a little bit better today as compared to yesterday. Interventional radiology was not able to obtain any further fluid in attempt to place a second pigtail catheter upper lateral chest. Suspect an organized collection of fluid. Today's chest x-ray remains the same with prominent left-sided effusion and atelectatic changes of the left lung. He continues to maintain good O2 saturations in the 90s on 2 L/ m per nasal cannula. On today's evaluation of 10/31/2079 nursing this patient for a follow-up. Clinically improving and the patient is ambulating pH is afebrile. She had a left lung postobstructive pneumonia and empyema. A pigtail catheter was inserted. Approximately 800 mL of fluid was drained that was purulent and the cultures are showing of the hemolytic strep. The patient a combination of Zosyn and Levaquin. She is improved. She is having less shortness of breath and she looks more active and less lethargic. I repeated the CAT scan of the chest today. The left infrahilar mass is still present. The patient also has a left lower lobe abscess. The loculated pleural effusion on the left is improved and is less and even the left upper extension of the loculated pleural effusion is also smaller in size. Based on this, I decided to give this patient out of place and continue with the drainage procedure for now. The patient is producing approximately 60 mL of output from her chest tube over the past 8-12 hours. Otherwise, no other specific complaints. ID consultation will be obtained regarding lung abscess and empyema. On today's evaluation of 10/31/2017 patient is seen in follow-up on selective care unit, she is resting in bed, eyes any acute distress, yesterday she had received alteplase in her left chest pigtail chest tube, and in the last 24 hours patient had a total of 445 ML of thick dark serosanguineous output from her chest tube. Patient has been noted to leak some serosanguineous output from around the catheter, and in the pigtail was gently milked, and the flow of the drainage in the chest tube had increased. The area around the is noted to be edematous. Lung sounds are diminished, with a few scattered rales. She remains on 2 L per nasal cannula with pulse ox of 93%, she is afebrile, pleural fluid cultures were positive for alpha hemolytic streptococcus, and anaerobic gram-negative bacilli, gram-positive and gram-negative anaerobic organisms Final cultures are pending, and the patient is on a combination of Levaquin and Zosyn. ID service has been consulted. Today's labwork was reviewed, no CBC was done, BMP showed potassium 5.4, BUN 47, creatinine 0.76. Patient remains in sinus rhythm with frequent PACs and PVCs, cardiology is planning on starting the patient on anticoagulation, after bronchoscopy. Objective - Vital Signs Vital signs: Vital Signs Temp 96.6 F L 10/31/17 11:44 Pulse 88 10/31/17 12:12 Resp 18 10/31/17 11:44 BP 111/62 10/31/17 11:44 Pulse Ox 93 L 10/31/17 11:44 Intake & Output 10/30/17 10/31/17 10/31/17 18:59 06:59 18:59 Intake Total 640 Output Total 2425 500 270 Balance -1785 -500 -270 Weight 62.1 kg Intake: IV 140 0.9 80 Invasive Line 3 10 Piperacillin-Tazobactam 3 50 .375 gm In Dextrose/Water 1 50ml.bag @ 12.5 mls/hr IVPB Q8H [facility] Rx#: [id number] Oral 500 Output: Chest Tube Drainage 175 0 270 Pleural Catheter Left 175 0 270 Urine 2250 500 Other: Voiding Method Toilet Toilet Toilet # Voids 1 1 # Bowel Movements 1 - Exam Appearance, comfortable no acute distress HEENT: Anicteric sclerae, pink and moist conjunctivae. Extraocular movements intact, pupils are reactive to light they are round and equal. External inspection of ears and nose showed normal mucosa. Oral mucosa, soft and hard palate tongue and posterior pharynx are intact. Neck: Supple no neck masses, no JVD, no thyroid enlargement, no adenopathy. Lungs: Symmetrical expansion,Diminished breath sounds and dullness at the left base. Left-sided chest tube remains in place, with thick dark serosanguineous output CVS: Regular rate and rhythm, normal S1 and S2, no gallops, no murmur, no rubs. Abdomen: Soft, nontender, no megaly, no rebound, no guarding, positive bowel sounds. Extremities: No clubbing, no edema, no cyanosis, 2+ pulses in upper and lower extremities. Musculoskeletal: Muscle strength and tone normal. Neurologic: Alert and oriented 3, normal affect, no focal neurologic deficits. Examination of the skin revealed no evidence of significant rashes, suspicious appearing nevi or other concerning lesions. - Labs CBC & Chem 7: 10/30/17 06:10 10/31/17 06:20 Labs: Abnormal Lab Results - Last 24 Hours (Table) 10/30/17 10/30/17 10/31/17 Range/Units 16:43 20:53 06:20 Potassium 5.4 H (3.5-5.1) mmol/L Carbon Dioxide 31 H (22-30) mmol/L BUN 47 H (7-17) mg/dL Glucose 160 H (74-99) mg/dL POC Glucose (mg/dL) 158 H 195 H (75-99) mg/dL 10/31/17 10/31/17 Range/Units 06:37 11:34 Potassium (3.5-5.1) mmol/L Carbon Dioxide (22-30) mmol/L BUN (7-17) mg/dL Glucose (74-99) mg/dL POC Glucose (mg/dL) 180 H 148 H (75-99) mg/dL Microbiology - Last 24 Hours (Table) 10/27/17 16:40 Anaerobic Culture - Final Pleural Fluid Anaerobic Gm Negative Bacilli Anaerobic Gram Positive Cocci Anaerobic Gm Negative Bacilli#2 Assessment and Plan Plan: Assessment: 1 squamous cell carcinoma of the lung, TNM stage III at least This is a recent diagnosis was established few weeks back and a follow-up PET scan showed significant progression with development of worsening left lower lobe consolidation, air fluid level and a loculated pleural effusion on the left lateral chest area. The patient presented with worsening shortness of breath and worsening respiratory status. Based on the PET scan findings empyema was suspected and the patient had a pigtail catheter inserted and pus was drained and the culture was positive for alpha hemolytic strep and anaerobic cultures still pending for now. Meanwhile the patient was given accommodation of Zosyn and Levaquin. A follow-up CAT scan shows improvement in the left-sided pleural effusion/empyema. There is still some localization on the lateral chest wall on the left. Nevertheless amount of fluid is less in amount of pus is less. There is still a lung abscess in the posterior left lower lobe with some necrosis in addition to a left infrahilar mass. The patient may benefit from out of place insertion for further drainage of the empyema. The patient may need long-term antibiotics and ID consultation will be requested. The patient may need a surgical evaluation at a later stage if the above-mentioned intervention failed to give her significant relief/ recovery. 2 COPD with FEV1 of 1.4 L at baseline 3 new onset atrial fibrillation with rapid ventricular response, now in sinus rhythm with frequent PACs and PVCs 3 acute hypoxic respiratory failure secondary to above 5 hyperlipidemia 6 hypertension 7 endobronchial tumor occupying the posterior segment of the left lower lobe, raising the suspicion for a development of a post obstructive pneumonia/abscess formation. 8 leukocytosis secondary to above Plan Continue current antibiotic coverage for now, ID service has been consulted. Patient had a total of 445 mL of dark serosanguineous output from the left pigtail chest tube alteplase infusion. We will schedule patient for bronchoscopy with BAL on 11/01/[address] Jones. Nothing by mouth after midnight. I performed a history & physical examination of the patient and discussed their management with my nurse practitioner, Diamond Randhawa. I reviewed the nurse practitioner's note and agree with the documented findings and plan of care. Lung sounds are diminished with a few refills. The findings and the impression was discussed with the patient. I attest to the documentation by the nurse practitioner. Time with Patient: Less than 30
--- NOTE | 2017-10-31 14:35 | P.PN ---
Progress Note - Text Progress Note Date: 10/31/17 Alteplase 10 mg in 100 mL of 0.9% normal saline instilled to her left pigtail pleural catheter without incident. The catheter will stay clamped for 1 hour post alteplase irrigation. At 3:30 today 10/31/2017 the pigtail catheter will be placed back to low continuous wall suction at -20 cm H2O.
--- NOTE | 2017-10-31 15:03 | P.PN ---
Subjective Patient with distress, cell lung cancer is admitted for postobstructive pneumonia on the left side with empyema patient has a chest tube in place patient is not feeling well and complaining of constipation and patient is on lactulose. Patient has a new onset atrial fibrillation and cardiology is recommending anticoagulation and patient will undergo bronchoscopy tomorrow because of which we will give 1 anticoagulation dose of Lovenox which will be resumed and continued after bronchoscopy tomorrow. Patient looks tired and rundown. Constitutional: As mentioned in HPI Cardio vascular: denied any chest pain, palpitations Gastrointestinal denied any nausea vomiting Pulmonary: Denied any shortness of breath cough Neurologic denied any new focal deficits Objective - Vital Signs Vital signs: Vital Signs Temp 96.6 F L 10/31/17 11:44 Pulse 88 10/31/17 12:12 Resp 18 10/31/17 11:44 BP 111/62 10/31/17 11:44 Pulse Ox 93 L 10/31/17 11:44 Intake & Output 10/30/17 10/31/17 10/31/17 18:59 06:59 18:59 Intake Total 640 Output Total 2425 500 390 Balance -1785 -500 -390 Weight 62.1 kg Intake: IV 140 0.9 80 Invasive Line 3 10 Piperacillin-Tazobactam 3 50 .375 gm In Dextrose/Water 1 50ml.bag @ 12.5 mls/hr IVPB Q8H [facility] Rx#: [id number] Oral 500 Output: Chest Tube Drainage 175 0 390 Pleural Catheter Left 175 0 390 Urine 2250 500 Other: Voiding Method Toilet Toilet Toilet # Voids 1 1 # Bowel Movements 1 - Exam PHYSICAL EXAMINATION: GENERAL: The patient is alert and oriented x3, not in any acute distress. Well developed, well nourished. Patient appears to be excessively tired fatigued HEENT: Pupils are round and equally reacting to light. EOMI. No scleral icterus. No conjunctival pallor. Normocephalic, atraumatic. No pharyngeal erythema. No thyromegaly. CARDIOVASCULAR: S1 and S2 present. No murmurs, rubs, or gallops. PULMONARY: Chest is clear to auscultation, no wheezing or crackles. Left sided chest tube in place which is still draining ABDOMEN: Soft, nontender, distended and tympanic abdomen, normoactive bowel sounds. No palpable organomegaly. MUSCULOSKELETAL: No joint swelling or deformity. EXTREMITIES: No cyanosis, clubbing, or pedal edema. NEUROLOGICAL: Gross neurological examination did not reveal any focal deficits. SKIN: No rashes. - Labs CBC & Chem 7: 10/30/17 06:10 10/31/17 06:20 Labs: Abnormal Lab Results - Last 24 Hours (Table) 10/30/17 10/30/17 10/31/17 Range/Units 16:43 20:53 06:20 Potassium 5.4 H (3.5-5.1) mmol/L Carbon Dioxide 31 H (22-30) mmol/L BUN 47 H (7-17) mg/dL Glucose 160 H (74-99) mg/dL POC Glucose (mg/dL) 158 H 195 H (75-99) mg/dL 10/31/17 10/31/17 Range/Units 06:37 11:34 Potassium (3.5-5.1) mmol/L Carbon Dioxide (22-30) mmol/L BUN (7-17) mg/dL Glucose (74-99) mg/dL POC Glucose (mg/dL) 180 H 148 H (75-99) mg/dL Microbiology - Last 24 Hours (Table) 10/27/17 16:40 Anaerobic Culture - Final Pleural Fluid Anaerobic Gm Negative Bacilli Anaerobic Gram Positive Cocci Anaerobic Gm Negative Bacilli#2 Assessment and Plan Plan: -Empyema: Secondary to postobstructive pneumonia on the left side patient has a chest tube in place, will undergo bronchoscopy tomorrow, chest tube fluid is polymicrobial, patient is presently on Zosyn and levofloxacin, infectious disease was consulted. -Mild hyperkalemia etiology is not clear will repeat potassium again tomorrow. -New-onset A. fib, on verapamil anticoagulation as mentioned above. -Squamous cell carcinoma with the left lung mass -Acute hypoxic respiratory failure secondary to assessment 1 -Hyperlipidemia -Hypertension -Constipation: Lactulose as needed
[2017-10-31] MEDS ORDERED: LIDOCAINE 1% 20 ML VIAL (10MG/ML) FOR IV START INTRADERMA PRN (15:07)
[2017-10-31] MEDS: LACTATED RINGERS 1,000 ML IV SCH (15:52)
--- NOTE | 2017-10-31 16:14 | XR ---
EXAMINATION TYPE: XR chest 1V portable DATE OF EXAM: 10/31/2017 COMPARISON: Prior chest x-ray 10/29/2017 HISTORY: Empyema TECHNIQUE: Single frontal view of the chest is obtained. FINDINGS: Left-sided pleural drainage catheter is in place, there is subcutaneous emphysema. Pleural line is suspected along the left lower chest which may be due to trapped lung rather than pneumothor ax. Persistent basilar density is noted obscuring the left hemidiaphragm and heart border. Some minim al blunting the right costophrenic angle is present. IMPRESSION: Suspect trapped lung status post pleural drainage catheter with subcutaneous emphysema a s described. Residual tumor, associated atelectasis, effusion, empyema is present.
[2017-10-31 17:28] LABS: Glucose,Whole Blood 234 mg/dL (75-99)
[2017-10-31] MEDS: ASPIRIN 81 MG PO SCH (20:31)
[2017-10-31 20:33] LABS: Glucose,Whole Blood 206 mg/dL (75-99)
--- NOTE | 2017-10-31 21:03 | P.CON ---
Consult Note - . Consult date: 10/31/17 Assessment/Plan:: This is a 77-year-old female patient with past medical history significant for squamous cell carcinoma of the lung. This was initially worked up and September of this year status post bronchoscopy with pathology for squamous cell carcinoma of the lung. PET scan was done October 22 that failed to show evidence of metastatic disease. There was significant progression and development of worsening left lower lobe consolidation, air fluid level and a loculated pleural effusion on the left lateral chest area It did show SUV uptake to the left lobe mass at 910. He has been seen at [facility] for surgical evaluation and told she was not a surgical candidate due to the location of her locally advanced disease. She was set up to see Dr. Tavarez and Dr Jacques is her pulmonary doctor. Patient presented to [facility] on October 26 with shortness of breath and weakness. She has been treated for empyema and has been on Zosyn and Levaquin. She has had a pigtail catheter inserted and pus was drained and culture is positive for alphahemolytic strep and anaerobic cultures are positive for gram-negative bacilli, gram-positive cocci and a second gram-negative bacilli. Prolonged oral cytology is also pending. There is concern that there is still a abscess in the posterior left lower lobe with some necrosis in addition to the left infrahilar mass. The patient may require long-term IV antibiotics and thus this consult was requested. The patient does state that her breathing is somewhat improved since she came in. She is anticipating that she may have a procedure today and is NPO. Her white count has improved from 23 down to 13 and she has been afebrile. Vital signs have been stable. Case management has set her up for nebulizer and oxygen at home. Patient verbalizes that she plans to return home at the time of discharge. During her stay she has had several episodes of atrial fibrillation with rapid ventricular response and followed by cardiology. Oncology is also following the patient. Please see the consult note is dictated by nurse practitioner Mrs. Danielle Pierre. As has been noted . Patient with recent diagnosis of squamous cell carcinoma of the lung with complex large mass was developed an empyema that has now been drained. Multiple bacteria but found that it could've hemolytic streptococci as well as multiple anaerobic bacteria. Currently receiving piperacillin tazobactam and levofloxacin which is appropriate for now while cultures are being finalized. Given the complex nature of this infection would be planning on outpatient intravenous antibiotic therapy to be arranged in the following days. We'll ask oncology would prefer an Etewib-o-Ghyd or a PICC line. Leukocytosis related to underlying empyema extremity. She is receiving. She fortunately is feeling slightly better at this point in time. Looks forward to further oncology follow-up. I agree with evaluation, assessment and plan as dictated by nurse practitioner Mrs. Danielle Pierre.
[2017-11-01] MEDS: IPRATROPIUM-ALBUTEROL 3 ML NEB INHALATION SCH ×6 (01:42→19:55)
[2017-11-01] MEDS: PIPERACILLIN-TAZOBACTAM 3.375 GM in DEXTROSE/WATER 1 50ML.BAG IVPB SCH ×3 (04:12→20:36)
[2017-11-01 05:49] LABS: Glucose,Whole Blood 170 mg/dL (75-99)
[2017-11-01] MEDS: INSULIN ASPART 100 UNIT/ML 1 ML 10 ML VIAL SQ SCH ×4 (06:37→21:57)
[2017-11-01 07:04] LABS: Anion Gap 5 mmol/L; Blood Urea Nitrogen 48 mg/dL (7-17); Calcium 8.5 mg/dL (8.4-10.2); Carbon Dioxide 28 mmol/L (22-30); Chloride 105 mmol/L (98-107); Glucose 160 mg/dL (74-99); Potassium 5.1 mmol/L (3.5-5.1); Sodium 138 mmol/L (137-145)
[2017-11-01] MEDS: ALPRAZolam 0.25 MG TAB PO PRN ×2 (07:07→21:57)
[2017-11-01] MEDS: BUDESONIDE 0.5 MG/2 ML NEBU INHALATION SCH ×2 (07:36→19:55)
[2017-11-01] MEDS: ACETAMINOPHEN TAB 325 MG TAB PO PRN (09:50)
[2017-11-01 11:18] LABS: Glucose,Whole Blood 202 mg/dL (75-99)
--- NOTE | 2017-11-01 11:43 | P.PN ---
Subjective Progress Note Date: 11/01/17 Principal diagnosis: Squamous cell carcinoma of the lung, TNM stage III with postobstructive pneumonia and pleural effusion. A 77-year-old female patient presented to MRSA problem because of worsening shortness of breath. No chest pain. No pleurisy. She felt feverish and she was progressively getting weak over the past few days. In the ED, the patient a temperature of 97.5, pulse rate of 81 which was pulse ox 92% on room air. Her white cell, was 23.7. TPN was up to 50 with a creatinine of 0.9. She was however in metabolic acidosis with a positive anion gap and her bicarb level was at 16. Chest x-ray revealed left lung capacity probably a combination of atelectatic changes along with a loculated left-sided pleural effusion. There is also some air-fluid levels compatible with necrotizing pneumonia/abscess formation. Old rib fractures were seen on the right. Patient was started on IV Zosyn and the patient was admitted to the floor and a pulmonary consultation was requested. I saw this patient in the oncology unit. The patient was found to be also nature fibrillation with rapid ventricular response. The patient will be scheduled to telemetry unit for Cardizem drip and rate control. A echo cardiac exam will also be ordered. This patient is known to our service and she follows up with Dr. Jacques outpatient patient basis. She is known to have COPD. The patient has an FEV1 of 1.48 L. She also has hypertension, mixed hyperlipidemia and most recently she was diagnosed having it, cell carcinoma of the lung. The patient was found to have a left lung mass on a chest x-ray that was on our office back in September 2017 and this was followed up by a CAT scan of the chest that showed a suspicious left infrahilar mass with obstruction/endobronchial narrowing in the left lower lobe and the mass was measuring 5.3 x 4.2 cm in size in addition to some atelectatic changes and left lung base. Based on this, a bronchoscopy was done and the endobronchial biopsies from the left lower lobe showed squamous cell carcinoma. The PET scan that was done for staging purposes on 10/22/2017 showed a sizable left-sided pleural effusion that was loculated along the left lateral chest area that had developed an interval compared to the previous CAT scan on 10/03/2017. There was also uptake noted in the left hilar region, left lower lobe with an SUV of 9-10. There was also air-fluid level and pockets of air present in the left lower lobe possibly due to necrotic tumor although the possibility of postobstructive pneumonia/abscess formation cannot be completely ruled out. Bilateral emphysematous changes were also noted. The patient also had nonunited fractures at the seventh and the sixth rib and the fifth rib on the right laterally. No other uptake within the skeletal system. Note that the patient was already seen at [facility] for a surgical evaluation and she was told that she was not a surgical candidate due to locally advanced disease. The patient is seen today 10/27/2017 in follow-up on the selective care unit. She had an episode of atrial fibrillation with rapid ventricular response yesterday, treated with verapamil and IV heparin. She is currently in sinus rhythm with frequent PACs. She is feeling slightly better today as compared to yesterday. Her O2 saturation is remaining in the 90s on 2 L/m per nasal cannula. She's been afebrile. She remains on Zosyn and Levaquin. The patient is seen again today 10/28/2017 in follow-up on the selective care unit. She is doing better today as compared to yesterday. She is currently sitting up in a chair at the bedside. She is breathing easier. Interventional radiology inserted a pigtail catheter in the left lower lung which is drained approximately 500 ML's of thick purulent drainage. Preliminary findings indicate moderate polymorphonuclear leukocytes, many gram-positive cocci and appears in chains, moderate gram-negative bacilli. She is currently on Zosyn and Levaquin. Chest x-ray does show improved aeration of the lower lobe however there is still pocketed fluid in the left midlung. She is currently afebrile. Maintaining O2 saturations in the 90s on 2 L/m per nasal cannula. White count 16.1. Hemoglobin 10.2. Creatinine 0.70. The patient is seen again today 10/29/2017 in follow-up in the selective care unit. She is currently sitting up in bed. She is awake and alert in no acute distress. She's been up ambulating in her room. She is breathing a little bit better today as compared to yesterday. Interventional radiology was not able to obtain any further fluid in attempt to place a second pigtail catheter upper lateral chest. Suspect an organized collection of fluid. Today's chest x-ray remains the same with prominent left-sided effusion and atelectatic changes of the left lung. He continues to maintain good O2 saturations in the 90s on 2 L/ m per nasal cannula. On today's evaluation of 10/31/2079 nursing this patient for a follow-up. Clinically improving and the patient is ambulating pH is afebrile. She had a left lung postobstructive pneumonia and empyema. A pigtail catheter was inserted. Approximately 800 mL of fluid was drained that was purulent and the cultures are showing of the hemolytic strep. The patient a combination of Zosyn and Levaquin. She is improved. She is having less shortness of breath and she looks more active and less lethargic. I repeated the CAT scan of the chest today. The left infrahilar mass is still present. The patient also has a left lower lobe abscess. The loculated pleural effusion on the left is improved and is less and even the left upper extension of the loculated pleural effusion is also smaller in size. Based on this, I decided to give this patient out of place and continue with the drainage procedure for now. The patient is producing approximately 60 mL of output from her chest tube over the past 8-12 hours. Otherwise, no other specific complaints. ID consultation will be obtained regarding lung abscess and empyema. On today's evaluation of 10/31/2017 patient is seen in follow-up on selective care unit, she is resting in bed, eyes any acute distress, yesterday she had received alteplase in her left chest pigtail chest tube, and in the last 24 hours patient had a total of 445 ML of thick dark serosanguineous output from her chest tube. Patient has been noted to leak some serosanguineous output from around the catheter, and in the pigtail was gently milked, and the flow of the drainage in the chest tube had increased. The area around the is noted to be edematous. Lung sounds are diminished, with a few scattered rales. She remains on 2 L per nasal cannula with pulse ox of 93%, she is afebrile, pleural fluid cultures were positive for alpha hemolytic streptococcus, and anaerobic gram-negative bacilli, gram-positive and gram-negative anaerobic organisms Final cultures are pending, and the patient is on a combination of Levaquin and Zosyn. ID service has been consulted. Today's labwork was reviewed, no CBC was done, BMP showed potassium 5.4, BUN 47, creatinine 0.76. Patient remains in sinus rhythm with frequent PACs and PVCs, cardiology is planning on starting the patient on anticoagulation, after bronchoscopy. The patient is seen again today 11/01/2017 in follow-up on the selective care unit. She is currently resting quite comfortably in bed. She is awake and alert in no acute distress. She denies any worsening shortness of breath, cough or congestion. Chest tube remains in place. He is maintaining good O2 saturations in the mid 90s on 2 L/m per nasal cannula. She's afebrile. Hemodynamically stable. Pleural fluid cultures reveal 2 alphahemolytic streptococcus species. She remains on Levaquin and Zosyn. Most recent chest x- ray reveals trapped lung with subcutaneous emphysema. There is residual tumor, associated atelectasis, effusion, empyema present. The plan is for bronchoscopy with BAL today. Objective - Vital Signs Vital signs: Vital Signs Temp 96.9 F L 11/01/17 08:00 Pulse 88 11/01/17 08:00 Resp 18 11/01/17 09:15 BP 111/57 11/01/17 08:00 Pulse Ox 95 11/01/17 08:00 Intake & Output 10/31/17 11/01/17 11/01/17 18:59 06:59 18:59 Intake Total 120 10 Output Total 700 651 30 Balance -700 -531 -20 Weight 59.4 kg Intake: IV 120 10 0.9 120 Invasive Line 3 10 Output: Chest Tube Drainage 700 651 30 Pleural Catheter Left 700 651 30 Other: Voiding Method Toilet Toilet Bedside Commode # Voids 3 1 # Bowel Movements 1 3 - Exam Appearance, comfortable no acute distress HEENT: Anicteric sclerae, pink and moist conjunctivae. Extraocular movements intact, pupils are reactive to light they are round and equal. External inspection of ears and nose showed normal mucosa. Oral mucosa, soft and hard palate tongue and posterior pharynx are intact. Neck: Supple no neck masses, no JVD, no thyroid enlargement, no adenopathy. Lungs: Symmetrical expansion,Diminished breath sounds and dullness at the left base. Left-sided chest tube remains in place. CVS: Regular rate and rhythm, normal S1 and S2, no gallops, no murmur, no rubs. Abdomen: Soft, nontender, no megaly, no rebound, no guarding, positive bowel sounds. Extremities: No clubbing, no edema, no cyanosis, 2+ pulses in upper and lower extremities. Musculoskeletal: Muscle strength and tone normal. Neurologic: Alert and oriented 3, normal affect, no focal neurologic deficits. Examination of the skin revealed no evidence of significant rashes, suspicious appearing nevi or other concerning lesions. - Labs CBC & Chem 7: 10/30/17 06:10 11/01/17 06:02 Labs: Abnormal Lab Results - Last 24 Hours (Table) 10/31/17 10/31/17 11/01/17 Range/Units 17:26 20:15 05:48 BUN (7-17) mg/dL Glucose (74-99) mg/dL POC Glucose (mg/dL) 234 H 206 H 170 H (75-99) mg/dL 11/01/17 11/01/17 Range/Units 06:02 11:11 BUN 48 H (7-17) mg/dL Glucose 160 H (74-99) mg/dL POC Glucose (mg/dL) 202 H (75-99) mg/dL Microbiology - Last 24 Hours (Table) 10/27/17 16:40 Gram Stain - Final Pleural Fluid Body Fluid Culture - Preliminary Alpha Hemolytic Streptococcus Alpha Hemolytic Streptococcus#2 Assessment and Plan Assessment: Assessment 1 squamous cell carcinoma of the lung, TNM stage III at least, This is a recent diagnosis was established few weeks back and a follow-up PET scan showed significant progression with development of worsening left lower lobe consolidation, air fluid level and a loculated pleural effusion on the left lateral chest area. Rule out postobstructive pneumonia with abscess formation and a parapneumonic effusion. Rule out necrosis related to malignancy with malignant pleural effusion. Note that the patient's PET scan was compared to the previous CAT scan that was done 3 weeks ago in September 2017 and there is obvious progression suspicious for the above-mentioned possibilities. Currently on IV Zosyn. Infection is also favored as the patient has developed some leukocytosis and anion gap metabolic acidosis 2 COPD with FEV1 of 1.4 L at baseline 3 new onset atrial fibrillation with rapid ventricular response 3 acute hypoxic respiratory failure secondary to above 5 hyperlipidemia 6 hypertension 7 endobronchial tumor occupying the posterior segment of the left lower lobe, raising the suspicion for a development of a post obstructive pneumonia/abscess formation. 8 leukocytosis secondary to above Plan: The patient was seen and evaluated by Dr. Jacques. Microbiology and labs all reviewed. ID is on the case. Lower left lung pigtail catheter remains in place and continues to drain. The plan is for bronchoscopy with BAL today. Repeat chest x-ray in a.m. We'll continue to follow. I, the cosigning physician, performed a history & physical examination of the patient. Lungs sounds with few scattered rhonchi, crackles in the left lung, diminished. Maintaining good O2 saturations in the 90s on 2 L/m per nasal cannula. I discussed the assessment and plan of care with my nurse practitioner , Meghana Cruz. I attest to the above note as dictated by her.
--- NOTE | 2017-11-01 11:57 | P.PN ---
Subjective Progress Note Date: 11/01/17 Principal diagnosis: difficulty in breathing, diagnosis of Empyema of left lung Patient seen today in follow-up. Her breathing is improved, left chest tube insertion mild discomfort, mostly dry cough, patient is still feeling pretty tired,, no recent fevers, nausea, changes in bowel habits, no acute or progressive pain reported. Objective - Vital Signs Vital signs: Vital Signs Temp 96.9 F L 11/01/17 08:00 Pulse 88 11/01/17 08:00 Resp 18 11/01/17 09:15 BP 111/57 11/01/17 08:00 Pulse Ox 95 11/01/17 08:00 Intake & Output 10/31/17 11/01/17 11/01/17 18:59 06:59 18:59 Intake Total 120 10 Output Total 700 651 30 Balance -700 -531 -20 Weight 59.4 kg Intake: IV 120 10 0.9 120 Invasive Line 3 10 Output: Chest Tube Drainage 700 651 30 Pleural Catheter Left 700 651 30 Other: Voiding Method Toilet Toilet Bedside Commode # Voids 3 1 # Bowel Movements 1 3 - Exam well-developed, adequately nourished female laying in bed, no acute distress, alert and oriented 4, respirations shallow but even and unlabored, no lower extremity swelling - Labs CBC & Chem 7: 10/30/17 06:10 11/01/17 06:02 Labs: Abnormal Lab Results - Last 24 Hours (Table) 10/31/17 10/31/17 11/01/17 Range/Units 17:26 20:15 05:48 BUN (7-17) mg/dL Glucose (74-99) mg/dL POC Glucose (mg/dL) 234 H 206 H 170 H (75-99) mg/dL 11/01/17 11/01/17 Range/Units 06:02 11:11 BUN 48 H (7-17) mg/dL Glucose 160 H (74-99) mg/dL POC Glucose (mg/dL) 202 H (75-99) mg/dL Microbiology - Last 24 Hours (Table) 10/27/17 16:40 Gram Stain - Final Pleural Fluid Body Fluid Culture - Preliminary Alpha Hemolytic Streptococcus Alpha Hemolytic Streptococcus#2 Assessment and Plan (1) Squamous cell lung cancer Narrative/Plan: Reviewed diagnosis of squamous cell lung cancer, all evidence thus far cancer is noted to be within the left lower lobe. Patient and family understand she is not a surgical candidate. They do understand mainstay of treatment is chemotherapy/radiation combined or chemotherapy and radiation sequential. How treatment will be given will be based on patient performance status. Patient and family understand that infection must be cleared before any cancer treatment can begin. we will follow case with you to resolution. Current Visit: Yes Status: Acute Priority: High Code(s): C34.90 - MALIGNANT NEOPLASM OF UNSP PART OF UNSP BRONCHUS OR LUNG SNOMED Code(s): 037766493
[2017-11-01] MEDS ORDERED: MIDAZOLAM 2 MG/2 ML VIAL ONE (12:41)
[2017-11-01] MEDS ORDERED: PROPOFOL 10 MG/ML 20 ML VIAL IV ONE (12:41)
[2017-11-01] MEDS ORDERED: LIDOCAINE 1% INJ 10MG/ML (20 ML MDV) ONE (12:41)
[2017-11-01] MEDS ORDERED: GLYCOPYRROLATE 0.2 MG/ML 2 ML VIAL ONE (12:41)
[2017-11-01] MEDS ORDERED: KETAMINE 10 MG/ML 20 ML VIAL ONE (12:41)
[2017-11-01] MEDS: NAPROXEN 250 MG TAB PO SCH ×3 (13:06→16:51)
[2017-11-01] MEDS ORDERED: LACTATED RINGERS 1,000 ML IV ONE (13:12)
[2017-11-01] MEDS: GEMFIBROZIL 600 MG TAB PO SCH ×2 (13:21→16:51)
[2017-11-01] MEDS: VERAPAMIL 40 MG TAB PO SCH ×3 (13:22→21:57)
[2017-11-01] MEDS: SODIUM CHLORIDE 0.9% 1,000 ML IV SCH (13:40)
--- NOTE | 2017-11-01 14:59 | PCN ---
PROCEDURE NOTE BRONCHOSCOPY AND BRONCHOALVEOLAR LAVAGE OF THE LEFT LOWER LOBE BRUSHINGS OF THE LEFT LOWER LOBE ENDOBRONCHIAL TUMOR: PREOPERATIVE DIAGNOSIS: Left lower lobe squamous cell carcinoma and postobstructive pneumonitis. POSTOPERATIVE DIAGNOSIS: Left lower lobe squamous cell carcinoma and postobstructive pneumonitis. ANESTHESIA USED: IV conscious sedation. Please refer to [facility] records. PROCEDURE: Patient was prepared according to the bronchoscopy protocol. O2 was applied via Ventimask. The patient was monitored, we monitored her O2 saturation continuously, blood pressure was intermittently monitored, and cardiac rhythm was continuously monitored. After adequate IV conscious sedation, the bronchoscope was inserted through the left naris, down to the area of the vocal cords. Purulent secretions were noted over the vocal cords and these were suctioned. Lidocaine was applied over the vocal cords, and the bronchoscope was advanced further down to the trachea, thorough examination done of the trachea, macho, right upper lobe, right lower lobe, right lower lobe, left upper lobe, lingula and left lower lobe. The only abnormality was noted mostly in the left lower lobe at the distal part of the left lower lobe bronchus, there was a large tumor completely occluding the basilar segments of the left lower lobe. There was also some extrinsic compression from the posterior segment of the endobronchial tumor involving the other segments. Lavage was done of the left lower lobe bronchus, no significant purulent secretions were noted. Brushings of the tumor in the posterior segment of the left lower lobe was done, and the procedure was well tolerated, no evidence of any immediate complication. The fluid was sent for different diagnostic studies and the findings were discussed with the family. MMODL / IJN: [id number] /
--- NOTE | 2017-11-01 16:02 | P.PN ---
Subjective Patient with distress, cell lung cancer is admitted for postobstructive pneumonia on the left side with empyema patient has a chest tube in place patient is not feeling well and complaining of constipation and patient is on lactulose. Patient has a new onset atrial fibrillation and cardiology is recommending anticoagulation and patient will undergo bronchoscopy tomorrow because of which we will give 1 anticoagulation dose of Lovenox which will be resumed and continued after bronchoscopy tomorrow. Patient looks tired and rundown. 11/01/2017 No significant change in her clinical status still remains tired sick underwent bronchoscopy highly suspicious for squamous cell carcinoma. Constitutional: As mentioned in HPI Cardio vascular: denied any chest pain, palpitations Gastrointestinal denied any nausea vomiting Pulmonary: Denied any shortness of breath cough Neurologic denied any new focal deficits Objective - Vital Signs Vital signs: Vital Signs Temp 96.6 F L 11/01/17 12:00 Pulse 82 11/01/17 15:55 Resp 16 11/01/17 14:20 BP 103/59 11/01/17 14:20 Pulse Ox 97 11/01/17 14:20 Intake & Output 10/31/17 11/01/17 11/01/17 18:59 06:59 18:59 Intake Total 120 260 Output Total 700 651 70 Balance -700 -531 190 Weight 59.4 kg Intake: IV 120 260 0.9 120 Invasive Line 3 10 Output: Chest Tube Drainage 700 651 70 Pleural Catheter Left 700 651 70 Other: Voiding Method Toilet Toilet Bedside Commode # Voids 3 1 # Bowel Movements 1 3 - Exam PHYSICAL EXAMINATION: GENERAL: The patient is alert and oriented x3, not in any acute distress. Well developed, well nourished. Patient appears to be excessively tired fatigued HEENT: Pupils are round and equally reacting to light. EOMI. No scleral icterus. No conjunctival pallor. Normocephalic, atraumatic. No pharyngeal erythema. No thyromegaly. CARDIOVASCULAR: S1 and S2 present. No murmurs, rubs, or gallops. PULMONARY: Chest is clear to auscultation, no wheezing or crackles. Left sided chest tube in place which is still draining ABDOMEN: Soft, nontender, distended and tympanic abdomen, normoactive bowel sounds. No palpable organomegaly. MUSCULOSKELETAL: No joint swelling or deformity. EXTREMITIES: No cyanosis, clubbing, or pedal edema. NEUROLOGICAL: Gross neurological examination did not reveal any focal deficits. SKIN: No rashes. - Labs CBC & Chem 7: 10/30/17 06:10 11/01/17 06:02 Labs: Abnormal Lab Results - Last 24 Hours (Table) 10/31/17 10/31/17 11/01/17 Range/Units 17:26 20:15 05:48 BUN (7-17) mg/dL Glucose (74-99) mg/dL POC Glucose (mg/dL) 234 H 206 H 170 H (75-99) mg/dL 11/01/17 11/01/17 Range/Units 06:02 11:11 BUN 48 H (7-17) mg/dL Glucose 160 H (74-99) mg/dL POC Glucose (mg/dL) 202 H (75-99) mg/dL Microbiology - Last 24 Hours (Table) 10/27/17 16:40 Gram Stain - Final Pleural Fluid Body Fluid Culture - Preliminary Alpha Hemolytic Streptococcus Alpha Hemolytic Streptococcus#2 Assessment and Plan Plan: -Empyema: Secondary to postobstructive pneumonia on the left side patient has a chest tube in place, will undergo bronchoscopy tomorrow, chest tube fluid is polymicrobial, patient is presently on Zosyn and levofloxacin, infectious disease was consulted. Patient underwent bronchoscopy today mostly therapeutic -Mild hyperkalemia etiology is not clear repeat potassium is within normal limits -New-onset A. fib, on verapamil anticoagulation as mentioned above. -Squamous cell carcinoma with the left lung mass -Acute hypoxic respiratory failure secondary to assessment 1 -Hyperlipidemia -Hypertension -Constipation: Lactulose as needed
[2017-11-01 16:22] LABS: Glucose,Whole Blood 178 mg/dL (75-99)
[2017-11-01] MEDS: LACTATED RINGERS 1,000 ML IV SCH (16:29)
[2017-11-01] MEDS: EZETIMIBE 10 MG TAB PO SCH (16:50)
[2017-11-01] MEDS: LEVOFLOXACIN 250 MG TAB PO SCH (16:50)
[2017-11-01] MEDS: predniSONE 20 MG TAB PO SCH (16:50)
[2017-11-01 21:03] LABS: Glucose,Whole Blood 162 mg/dL (75-99)
--- NOTE | 2017-11-01 21:35 | P.PN ---
Subjective Progress Note Date: 11/01/17 This is a 77-year-old female patient with past medical history significant for squamous cell carcinoma of the lung. This was initially worked up and September of this year status post bronchoscopy with pathology for squamous cell carcinoma of the lung. PET scan was done October 22 that failed to show evidence of metastatic disease. There was significant progression and development of worsening left lower lobe consolidation, air fluid level and a loculated pleural effusion on the left lateral chest area It did show SUV uptake to the left lobe mass at 910. He has been seen at [facility] for surgical evaluation and told she was not a surgical candidate due to the location of her locally advanced disease. She was set up to see Dr. Tavarez and Dr Jacques is her pulmonary doctor. Patient presented to [facility] emergency center on October 26 with shortness of breath and weakness. She has been treated for empyema and has been on Zosyn and Levaquin. She has had a pigtail catheter inserted and pus was drained and culture is positive for alphahemolytic strep and anaerobic cultures are positive for gram-negative bacilli, gram-positive cocci and a second gram-negative bacilli. Prolonged oral cytology is also pending. There is concern that there is still a abscess in the posterior left lower lobe with some necrosis in addition to the left infrahilar mass. The patient may require long-term IV antibiotics and thus this consult was requested. The patient does state that her breathing is somewhat improved since she came in. She is anticipating that she may have a procedure today and is NPO. Her white count has improved from 23 down to 13 and she has been afebrile. Vital signs have been stable. Case management has set her up for nebulizer and oxygen at home. Patient verbalizes that she plans to return home at the time of discharge. During her stay she has had several episodes of atrial fibrillation with rapid ventricular response and followed by cardiology. Oncology is also following the patient. 11/01/2017 patient initially feel poorly. She is relating that she has oral thrush she's having difficulty tolerating food but is not having difficulty swallowing. Is not having fevers or chills today. Her shortness of breath is stable. Objective - Vital Signs Vital signs: Vital Signs Temp 96.8 F L 11/01/17 20:00 Pulse 80 11/01/17 20:00 Resp 18 11/01/17 20:00 BP 100/58 11/01/17 20:00 Pulse Ox 96 11/01/17 20:00 Intake & Output 11/01/17 11/01/17 11/02/17 06:59 18:59 06:59 Intake Total 120 740 Output Total 651 110 10 Balance -531 630 -10 Weight 59.4 kg Intake: IV 120 260 0.9 120 Invasive Line 3 10 Intake, IV Titration 240 Amount Lactated Ringers 1,000 ml 240 @ 20 mls/hr IV .Q24H [facility] Rx#:[id number] Oral 240 Output: Chest Tube Drainage 651 110 10 Pleural Catheter Left 651 110 10 Urine 0 Other: Voiding Method Toilet Bedside Commode # Voids 3 1 # Bowel Movements 3 - Exam Gen: This is a 77-year-old female. She is in bed and appears to be comfortable. No acute respiratory distress is noted. HEENT: Head is atraumatic, normocephalic. Pupils equal, round. Sclerae is anicteric. Has evidence of oral thrush NECK: Supple. No JVD. No lymphadenopathy. No thyromegaly. LUNGS: Scattered rhonchi. No intercostal retractions. Left posterior chest tube in place. HEART: Regular rate and rhythm. No murmur. ABDOMEN: Soft. Bowel sounds are present. No masses. No tenderness. EXTREMITIES: Trace bilateral pedal edema. No calf tenderness. Dorsalis pedis + 2 bilaterally. Chronic dark skin changes to the bilateral lower legs. Bilateral hand edema. NEUROLOGICAL: Patient is awake, alert and oriented x3. - Labs CBC & Chem 7: 10/30/17 06:10 11/01/17 06:02 Labs: Abnormal Lab Results - Last 24 Hours (Table) 11/01/17 11/01/17 11/01/17 Range/Units 05:48 06:02 11:11 BUN 48 H (7-17) mg/dL Glucose 160 H (74-99) mg/dL POC Glucose (mg/dL) 170 H 202 H (75-99) mg/dL 11/01/17 11/01/17 Range/Units 16:18 21:01 BUN (7-17) mg/dL Glucose (74-99) mg/dL POC Glucose (mg/dL) 178 H 162 H (75-99) mg/dL Microbiology - Last 24 Hours (Table) 10/27/17 16:40 Gram Stain - Final Pleural Fluid Body Fluid Culture - Final Alpha Hemolytic Streptococcus Alpha Hemolytic Streptococcus#2 Laboratory Results WBC 13.0 k/uL (3.8-10.6) H 10/30/17 06:10 RBC 4.23 m/uL (3.80-5.40) 10/30/17 06:10 Hgb 10.7 gm/dL (11.4-16.0) L 10/30/17 06:10 Hct 35.7 % (34.0-46.0) 10/30/17 06:10 MCV 84.4 fL (80.0-100.0) 10/30/17 06:10 MCH 25.3 pg (25.0-35.0) 10/30/17 06:10 MCHC 30.0 g/dL (31.0-37.0) L 10/30/17 06:10 RDW 16.4 % (11.5-15.5) H 10/30/17 06:10 Plt Count 620 k/uL (150-450) H 10/30/17 06:10 Neutrophils % 93 % 10/30/17 06:10 Neutrophils % (Manual) 90 % 10/27/17 03:00 Band Neutrophils % 2 % 10/26/17 10:25 Lymphocytes % 5 % 10/30/17 06:10 Lymphocytes % (Manual) 3 % 10/27/17 03:00 Monocytes % 2 % 10/30/17 06:10 Monocytes % (Manual) 7 % 10/27/17 03:00 Eosinophils % 0 % 10/30/17 06:10 Basophils % 0 % 10/30/17 06:10 Neutrophils # 12.1 k/uL (1.3-7.7) H 10/30/17 06:10 Neutrophils # (Manual) 23.67 k/uL (1.3-7.7) H 10/27/17 03:00 Lymphocytes # 0.6 k/uL (1.0-4.8) L 10/30/17 06:10 Lymphocytes # (Manual) 0.79 k/uL (1.0-4.8) L 10/27/17 03:00 Monocytes # 0.2 k/uL (0-1.0) 10/30/17 06:10 Monocytes # (Manual) 1.84 k/uL (0-1.0) H 10/27/17 03:00 Eosinophils # 0.0 k/uL (0-0.7) 10/30/17 06:10 Basophils # 0.0 k/uL (0-0.2) 10/30/17 06:10 Nucleated RBCs 0 /100 WBC (0-0) 10/27/17 03:00 Manual Slide Review Performed 10/26/17 10:25 Toxic Vacuolation Present 10/26/17 10:25 Polychromasia Present 10/26/17 10:25 Hypochromasia Marked 10/30/17 06:10 Poikilocytosis (manual Present 10/26/17 10:25 Anisocytosis Slight 10/30/17 06:10 PT 9.8 sec (9.0-12.0) 10/26/17 10:25 INR 1.0 (<1.2) 10/26/17 10:25 APTT 21.8 sec (22.0-30.0) L 10/27/17 14:45 Sodium 138 mmol/L (137-145) 11/01/17 06:02 Potassium 5.1 mmol/L (3.5-5.1) 11/01/17 06:02 Chloride 105 mmol/L (98-107) 11/01/17 06:02 Carbon Dioxide 28 mmol/L (22-30) 11/01/17 06:02 Anion Gap 5 mmol/L 11/01/17 06:02 BUN 48 mg/dL (7-17) H 11/01/17 06:02 Creatinine 0.70 mg/dL (0.52-1.04) 11/01/17 06:02 Est GFR (CKD-EPI)AfAm >90 (>60 ml/min/1.73 sqM) 11/01/17 06:02 Est GFR (CKD-EPI)NonAf 83 (>60 ml/min/1.73 sqM) 11/01/17 06:02 Glucose 160 mg/dL (74-99) H 11/01/17 06:02 POC Glucose (mg/dL) 162 mg/dL (75-99) H 11/01/17 21:01 POC Glu [facility] ID Pavithra Walkeralba 11/01/17 21:01 Plasma Lactic Acid Jethro 1.6 mmol/L (0.7-2.0) 10/26/17 10:25 Calcium 8.5 mg/dL (8.4-10.2) 11/01/17 06:02 Magnesium 2.5 mg/dL (1.6-2.3) H 10/28/17 09:21 Total Bilirubin 0.6 mg/dL (0.2-1.3) 10/28/17 09:21 AST 35 U/L (14-36) 10/28/17 09:21 ALT 45 U/L (9-52) 10/28/17 09:21 Alkaline Phosphatase 200 U/L (38-126) H 10/28/17 09:21 Lactate Dehydrogenase 795 U/L (313-618) H 10/27/17 02:52 Total Creatine Kinase <20 U/L (30-135) L 10/26/17 10:25 CK-MB (CK-2) 1.6 ng/mL (0.0-2.4) 10/26/17 10:25 CK-MB (CK-2) Rel Index 10/26/17 10:25 Troponin I <0.012 ng/mL (0.000-0.034) 10/26/17 10:25 NT-Pro-B Natriuret Pep 1700 pg/mL 10/26/17 10:25 Total Protein 5.0 g/dL (6.3-8.2) L 10/28/17 09:21 Albumin 2.2 g/dL (3.5-5.0) L 10/28/17 09:21 TSH 1.090 mIU/L (0.465-4.680) 10/27/17 02:52 Fluid Source Pleural 10/27/17 16:40 Fluid Appearance Cloudy 10/27/17 16:40 Fluid RBC 1500 /uL 10/27/17 16:40 Fluid Nucleated Cells 3900 /uL 10/27/17 16:40 Fluid Polynuclear WBCs 62 % 10/27/17 16:40 Fluid Mononuclear WBCs 36 % 10/27/17 16:40 Fluid Eosinophils 2 % 10/27/17 16:40 Body Fluid Glucose Source Pleural Fluid 10/27/17 16:40 Fluid Glucose <4 mg/dL 10/27/17 16:40 Body Fluid Protein Source Pleural Fluid 10/27/17 16:40 Fluid Total Protein 1065.0 mg/dL 10/27/17 16:40 Body Fluid LDH Source Pleural Fluid 10/27/17 16:40 Fluid LDH 3718 U/L 10/27/17 16:40 Microbiology 10/27/17 16:40 Pleural Fluid Gram Stain - Final 10/27/17 16:40 Pleural Fluid Body Fluid Culture - Final Alpha Hemolytic Streptococcus Alpha Hemolytic Streptococcus#2 10/27/17 16:40 Pleural Fluid Anaerobic Culture - Final Anaerobic Gm Negative Bacilli Anaerobic Gram Positive Cocci Anaerobic Gm Negative Bacilli#2 - Imaging and Cardiology Chest x-ray: report reviewed (Evidence of tumor, atelectasis and empyema) Assessment and Plan (1) Squamous cell lung cancer Current Visit: Yes Status: Acute Priority: High Code(s): C34.90 - MALIGNANT NEOPLASM OF UNSP PART OF UNSP BRONCHUS OR LUNG SNOMED Code(s): 698367655 (2) Empyema of lung Narrative/Plan: Patient with recent diagnosis of squamous cell carcinoma of the lung with complex large mass was developed an empyema that has now been drained. Multiple bacteria but found that it could've hemolytic streptococci as well as multiple anaerobic bacteria. Currently receiving piperacillin tazobactam and levofloxacin which is appropriate for now while cultures are being finalized. Given the complex nature of this infection would be planning on outpatient intravenous antibiotic therapy to be arranged in the following days. We'll ask oncology would prefer an [id number] or a PICC line. Leukocytosis related to underlying empyema extremity. She is receiving. She fortunately is feeling slightly better at this point in time. Looks forward to further oncology follow-up. Patient is seen by oncology and pulmonary critical care and bronchoscopy occurred today. Prior biopsy did have squamous cell carcinoma . She is feeling slightly better this evening. We'll continue antibiotic therapy. PICC line requested then placed. Final cultures are in process with alpha strep appears to not be resistant species but there is a 3 anaerobic bacteria still in process. Likely within time occurs she'll be placed Invanz to complete her many week course of antibiotic therapy. Oral thrush is noted Mycelex as started Current Visit: Yes Status: Acute Code(s): J86.9 - PYOTHORAX WITHOUT FISTULA SNOMED Code(s): 175159408
[2017-11-01 21:48] LABS: Color,BF Red
[2017-11-01 21:49] LABS: Appearance,BF Bloody; Nucleated Cells, Body Fluid 100 /uL; RBC, Body Fluid 43300 /uL
[2017-11-01 21:50] LABS: Polynuclear WBC,Body Fluid 100 %; Total Cells Counted,Body Fluid 100
[2017-11-01] MEDS: ASPIRIN 81 MG PO SCH (21:57)
[2017-11-01] MEDS: CLOTRIMAZOLE TROCHE 10 MG TROCHE MUCOUS MEM SCH (21:57)
[2017-11-02] MEDS: IPRATROPIUM-ALBUTEROL 3 ML NEB INHALATION SCH ×4 (04:16→15:35)
[2017-11-02] MEDS: CLOTRIMAZOLE TROCHE 10 MG TROCHE MUCOUS MEM SCH ×3 (04:37→13:24)
[2017-11-02] MEDS: PIPERACILLIN-TAZOBACTAM 3.375 GM in DEXTROSE/WATER 1 50ML.BAG IVPB SCH ×2 (05:17→13:24)
[2017-11-02 05:49] LABS: Glucose,Whole Blood 160 mg/dL (75-99)
[2017-11-02] MEDS: NAPROXEN 250 MG TAB PO SCH ×2 (06:32→13:30)
[2017-11-02] MEDS: GEMFIBROZIL 600 MG TAB PO SCH (06:33)
[2017-11-02] MEDS: ALPRAZolam 0.25 MG TAB PO PRN (06:33)
[2017-11-02] MEDS: INSULIN ASPART 100 UNIT/ML 1 ML 10 ML VIAL SQ SCH ×2 (06:33→15:34)
[2017-11-02 06:52] LABS: Calcium 8.4 mg/dL (8.4-10.2); Potassium 4.5 mmol/L (3.5-5.1)
[2017-11-02] MEDS: BUDESONIDE 0.5 MG/2 ML NEBU INHALATION SCH (07:25)
[2017-11-02] MEDS: EZETIMIBE 10 MG TAB PO SCH (08:47)
[2017-11-02] MEDS: predniSONE 20 MG TAB PO SCH (08:47)
[2017-11-02] MEDS: VERAPAMIL 40 MG TAB PO SCH (08:47)
--- NOTE | 2017-11-02 09:14 | P.PN ---
Subjective Progress Note Date: 11/02/17 Principal diagnosis: Squamous cell carcinoma of the lung, tandem stage III with postobstructive pneumonia and pleural effusion A 77-year-old female patient presented to MRSA problem because of worsening shortness of breath. No chest pain. No pleurisy. She felt feverish and she was progressively getting weak over the past few days. In the ED, the patient a temperature of 97.5, pulse rate of 81 which was pulse ox 92% on room air. Her white cell, was 23.7. TPN was up to 50 with a creatinine of 0.9. She was however in metabolic acidosis with a positive anion gap and her bicarb level was at 16. Chest x-ray revealed left lung capacity probably a combination of atelectatic changes along with a loculated left-sided pleural effusion. There is also some air-fluid levels compatible with necrotizing pneumonia/abscess formation. Old rib fractures were seen on the right. Patient was started on IV Zosyn and the patient was admitted to the floor and a pulmonary consultation was requested. I saw this patient in the oncology unit. The patient was found to be also nature fibrillation with rapid ventricular response. The patient will be scheduled to telemetry unit for Cardizem drip and rate control. A echo cardiac exam will also be ordered. This patient is known to our service and she follows up with Dr. Jacques outpatient patient basis. She is known to have COPD. The patient has an FEV1 of 1.48 L. She also has hypertension, mixed hyperlipidemia and most recently she was diagnosed having it, cell carcinoma of the lung. The patient was found to have a left lung mass on a chest x-ray that was on our office back in September 2017 and this was followed up by a CAT scan of the chest that showed a suspicious left infrahilar mass with obstruction/endobronchial narrowing in the left lower lobe and the mass was measuring 5.3 x 4.2 cm in size in addition to some atelectatic changes and left lung base. Based on this, a bronchoscopy was done and the endobronchial biopsies from the left lower lobe showed squamous cell carcinoma. The PET scan that was done for staging purposes on 10/22/2017 showed a sizable left-sided pleural effusion that was loculated along the left lateral chest area that had developed an interval compared to the previous CAT scan on 10/03/2017. There was also uptake noted in the left hilar region, left lower lobe with an SUV of 9-10. There was also air-fluid level and pockets of air present in the left lower lobe possibly due to necrotic tumor although the possibility of postobstructive pneumonia/abscess formation cannot be completely ruled out. Bilateral emphysematous changes were also noted. The patient also had nonunited fractures at the seventh and the sixth rib and the fifth rib on the right laterally. No other uptake within the skeletal system. Note that the patient was already seen at [facility] for a surgical evaluation and she was told that she was not a surgical candidate due to locally advanced disease. The patient is seen today 10/27/2017 in follow-up on the selective care unit. She had an episode of atrial fibrillation with rapid ventricular response yesterday, treated with verapamil and IV heparin. She is currently in sinus rhythm with frequent PACs. She is feeling slightly better today as compared to yesterday. Her O2 saturation is remaining in the 90s on 2 L/m per nasal cannula. She's been afebrile. She remains on Zosyn and Levaquin. The patient is seen again today 10/28/2017 in follow-up on the selective care unit. She is doing better today as compared to yesterday. She is currently sitting up in a chair at the bedside. She is breathing easier. Interventional radiology inserted a pigtail catheter in the left lower lung which is drained approximately 500 ML's of thick purulent drainage. Preliminary findings indicate moderate polymorphonuclear leukocytes, many gram-positive cocci and appears in chains, moderate gram-negative bacilli. She is currently on Zosyn and Levaquin. Chest x-ray does show improved aeration of the lower lobe however there is still pocketed fluid in the left midlung. She is currently afebrile. Maintaining O2 saturations in the 90s on 2 L/m per nasal cannula. White count 16.1. Hemoglobin 10.2. Creatinine 0.70. The patient is seen again today 10/29/2017 in follow-up in the selective care unit. She is currently sitting up in bed. She is awake and alert in no acute distress. She's been up ambulating in her room. She is breathing a little bit better today as compared to yesterday. Interventional radiology was not able to obtain any further fluid in attempt to place a second pigtail catheter upper lateral chest. Suspect an organized collection of fluid. Today's chest x-ray remains the same with prominent left-sided effusion and atelectatic changes of the left lung. He continues to maintain good O2 saturations in the 90s on 2 L/ m per nasal cannula. On today's evaluation of 10/31/2079 nursing this patient for a follow-up. Clinically improving and the patient is ambulating pH is afebrile. She had a left lung postobstructive pneumonia and empyema. A pigtail catheter was inserted. Approximately 800 mL of fluid was drained that was purulent and the cultures are showing of the hemolytic strep. The patient a combination of Zosyn and Levaquin. She is improved. She is having less shortness of breath and she looks more active and less lethargic. I repeated the CAT scan of the chest today. The left infrahilar mass is still present. The patient also has a left lower lobe abscess. The loculated pleural effusion on the left is improved and is less and even the left upper extension of the loculated pleural effusion is also smaller in size. Based on this, I decided to give this patient out of place and continue with the drainage procedure for now. The patient is producing approximately 60 mL of output from her chest tube over the past 8-12 hours. Otherwise, no other specific complaints. ID consultation will be obtained regarding lung abscess and empyema. On today's evaluation of 10/31/2017 patient is seen in follow-up on selective care unit, she is resting in bed, eyes any acute distress, yesterday she had received alteplase in her left chest pigtail chest tube, and in the last 24 hours patient had a total of 445 ML of thick dark serosanguineous output from her chest tube. Patient has been noted to leak some serosanguineous output from around the catheter, and in the pigtail was gently milked, and the flow of the drainage in the chest tube had increased. The area around the is noted to be edematous. Lung sounds are diminished, with a few scattered rales. She remains on 2 L per nasal cannula with pulse ox of 93%, she is afebrile, pleural fluid cultures were positive for alpha hemolytic streptococcus, and anaerobic gram-negative bacilli, gram-positive and gram-negative anaerobic organisms Final cultures are pending, and the patient is on a combination of Levaquin and Zosyn. ID service has been consulted. Today's labwork was reviewed, no CBC was done, BMP showed potassium 5.4, BUN 47, creatinine 0.76. Patient remains in sinus rhythm with frequent PACs and PVCs, cardiology is planning on starting the patient on anticoagulation, after bronchoscopy. The patient is seen again today 11/01/2017 in follow-up on the selective care unit. She is currently resting quite comfortably in bed. She is awake and alert in no acute distress. She denies any worsening shortness of breath, cough or congestion. Chest tube remains in place. He is maintaining good O2 saturations in the mid 90s on 2 L/m per nasal cannula. She's afebrile. Hemodynamically stable. Pleural fluid cultures reveal 2 alphahemolytic streptococcus species. She remains on Levaquin and Zosyn. Most recent chest x- ray reveals trapped lung with subcutaneous emphysema. There is residual tumor, associated atelectasis, effusion, empyema present. The plan is for bronchoscopy with BAL today. On 11/02/2017 patient seen in follow-up on selective care unit. She is status post bronchoscopy with BAL on 11/01/2017, luminary bronc wash Gram stain showed moderate polymorphonuclear leukocytes, rare yeast and epithelial cells. Bronc wash cultures are in progress. As mentioned before, the pleural fluid cultures were positive for alpha hemolytic strep, and numerous anaerobic gram-positive and gram-negative organisms. She was seen in consultation by ID service, patient continues on antibiotic coverage in the form of Levaquin and Zosyn. Left chest pigtail chest tube output is serosanguineous, thin, and there has been 150 ML from within the last 24 hours. Denies any fever or chills, patient remains on 2 L per nasal cannula the pulse ox 97-100%. Denies any difficulty breathing, no chest congestion, no wheezing. Repeat CT chest is pending this morning, to evaluate the appearance of left lower lobe pneumonia, loculated parapneumonic pleural effusion in the left lateral chest wall. In view of patient's complex issues including the recent diagnosis of squamous cell carcinoma with a complex large mass, postobstructive left lower lobe pneumonia, empyema, and ongoing concern that there is still an abscess in the posterior left lower lobe with some necrosis, in addition to poor lung function related to COPD, and other comorbidities, the decision was made to transfer the patient to [facility], in the care of of Dr. Kelley, for further management of left lower lobe postobstructive pneumonia with empyema, in addition to a large left infrahilar mass that was positive for squamous cell carcinoma. Dr. Jones discussed the case with Dr. Kelley, who agreed to accept the patient. This was also discussed with the patient's family and the patient who are agreeable with the plan. Objective - Vital Signs Vital signs: Vital Signs Temp 97.2 F L 11/02/17 04:00 Pulse 88 11/02/17 07:47 Resp 18 11/02/17 04:00 BP 110/46 11/02/17 04:00 Pulse Ox 100 11/02/17 07:29 Intake & Output 11/01/17 11/02/17 11/02/17 18:59 06:59 18:59 Intake Total 740 360 Output Total 110 340 Balance 630 20 Weight 60.8 kg Intake: IV 260 Invasive Line 3 10 Intake, IV Titration 240 Amount Lactated Ringers 1,000 ml 240 @ 20 mls/hr IV .Q24H NIRMALA Rx#:[id number] Oral 240 360 Output: Chest Tube Drainage 110 40 Pleural Catheter Left 110 40 Urine 0 300 Other: Voiding Method Bedside Commode # Voids 1 2 1 # Bowel Movements 3 - Exam Appearance, comfortable no acute distress HEENT: Anicteric sclerae, pink and moist conjunctivae. Extraocular movements intact, pupils are reactive to light they are round and equal. External inspection of ears and nose showed normal mucosa. Oral mucosa, soft and hard palate tongue and posterior pharynx are intact. Neck: Supple no neck masses, no JVD, no thyroid enlargement, no adenopathy. Lungs: Symmetrical expansion,Diminished breath sounds and dullness at the left base, limited scattered crackles at the bases. Left-sided chest tube remains in place, with thin dark serosanguineous output CVS: Regular rate and rhythm, normal S1 and S2, no gallops, no murmur, no rubs. Abdomen: Soft, nontender, no megaly, no rebound, no guarding, positive bowel sounds. Extremities: No clubbing, no edema, no cyanosis, 2+ pulses in upper and lower extremities. Musculoskeletal: Muscle strength and tone normal. Neurologic: Alert and oriented 3, normal affect, no focal neurologic deficits. Examination of the skin revealed no evidence of significant rashes, suspicious appearing nevi or other concerning lesions. - Labs CBC & Chem 7: 10/30/17 06:10 11/02/17 06:21 Labs: Abnormal Lab Results - Last 24 Hours (Table) 11/01/17 11/01/17 11/01/17 Range/Units 11:11 16:18 21:01 BUN (7-17) mg/dL Glucose (74-99) mg/dL POC Glucose (mg/dL) 202 H 178 H 162 H (75-99) mg/dL 11/02/17 11/02/17 Range/Units 05:48 06:21 BUN 51 H (7-17) mg/dL Glucose 147 H (74-99) mg/dL POC Glucose (mg/dL) 160 H (75-99) mg/dL Microbiology - Last 24 Hours (Table) 11/01/17 14:00 Gram Stain - Preliminary Bronchial Washings - Left Bronchial Washings Culture - Preliminary 11/01/17 14:00 Fungal Culture - Preliminary Lung - Left Lower Lobe 10/27/17 16:40 Gram Stain - Final Pleural Fluid Body Fluid Culture - Final Alpha Hemolytic Streptococcus Alpha Hemolytic Streptococcus#2 Assessment and Plan Plan: Assessment: 1 squamous cell carcinoma of the lung, TNM stage III at least This is a recent diagnosis was established few weeks back and a follow-up PET scan showed significant progression with development of worsening left lower lobe consolidation, air fluid level and a loculated pleural effusion on the left lateral chest area. The patient presented with worsening shortness of breath and worsening respiratory status. Based on the PET scan findings empyema was suspected and the patient had a pigtail catheter inserted and pus was drained and the culture was positive for alpha hemolytic strep and anaerobic cultures still pending for now. Meanwhile the patient was given accommodation of Zosyn and Levaquin. A follow-up CAT scan shows improvement in the left-sided pleural effusion/empyema. There is still some localization on the lateral chest wall on the left. Nevertheless amount of fluid is less in amount of pus is less. There is still a lung abscess in the posterior left lower lobe with some necrosis in addition to a left infrahilar mass. The patient may benefit from out of place insertion for further drainage of the empyema. The patient may need long-term antibiotics and ID consultation will be requested. Patient will need a surgical evaluation, and the case was discussed with Dr. Kelley, the cardiothoracic surgeon at the [facility], who will be accepting the patient to his care, and the transfer being arranged today, on 11/02/2017 2 COPD with FEV1 of 1.4 L at baseline 3 new onset atrial fibrillation with rapid ventricular response, now in sinus rhythm with frequent PACs and PVCs 3 acute hypoxic respiratory failure secondary to above 5 hyperlipidemia 6 hypertension 7 endobronchial tumor occupying the posterior segment of the left lower lobe, raising the suspicion for a development of a post obstructive pneumonia/abscess formation. 8 leukocytosis secondary to above Plan In view of patient's complex issues including the recent diagnosis of squamous cell carcinoma with a complex large mass, postobstructive left lower lobe pneumonia, empyema, and ongoing concern that there is still an abscess in the posterior left lower lobe with some necrosis, in addition to poor lung function related to COPD, and other comorbidities, the decision was made to transfer the patient to [facility], in the care of of Dr. Kelley, for further management of left lower lobe postobstructive pneumonia with empyema, in addition to a large left infrahilar mass that was positive for squamous cell carcinoma. Dr. Jones discussed the case with Dr. Kelley, who agreed to accept the patient. This was also discussed with the patient's family and the patient who are agreeable with the plan. I performed a history & physical examination of the patient and discussed their management with my nurse practitioner, Diamond Randhawa. I reviewed the nurse practitioner's note and agree with the documented findings and plan of care. Lung sounds are diminished with a few rales. The findings and the impression was discussed with the patient. I attest to the documentation by the nurse practitioner. Time with Patient: Less than 30
--- NOTE | 2017-11-02 09:31 | XR ---
EXAMINATION TYPE: XR chest 1V portable DATE OF EXAM: 11/02/2017 COMPARISON: Prior chest x-ray 10/31/2017 HISTORY: Lung mass, consolidation, chest tube TECHNIQUE: Single frontal view of the chest is obtained. FINDINGS: I see similar to prior exam. Pneumothorax or trapped lung again seen with mass in the left lower lobe. Heart size is stable. Airspace disease or pleural effusions suspected at the right costo phrenic angle. IMPRESSION: Findings may represent trapped lung, pneumothorax. Lung mass. Pleural effusion.
--- NOTE | 2017-11-02 10:12 | P.DS ---
Providers Date of admission: 10/26/17 12:52 Attending physician: Warren Pratt Consults: 10/26/17 12:52 Consult Physician Stat Consulting Provider: Nidhi Zamorano Consult Reason/Comments: History of COPD, lung cancer, pleural effusion, leukocytosis Do you want consulting provider notified?: Yes 10/26/17 16:25 Consult Physician Stat Consulting Provider: Jeermy Mullen Consult Reason/Comments: A-Fib RVR Do you want consulting provider notified?: Yes 10/27/17 11:15 Consult Physician Stat Consulting Provider: Elver Bryson Consult Reason/Comments: Lung Cancer Do you want consulting provider notified?: Yes 10/27/17 11:21 Consult Physician Routine Consulting Provider: Abel Mark Consult Reason/Comments: left pleural effusion, parapneumonic/malignant, Pig tail chest tube inserti Do you want consulting provider notified?: Yes 10/30/17 10:08 Consult Physician Routine Consulting Provider: Jh Pereira Consult Reason/Comments: Empyema Do you want consulting provider notified?: Yes Primary care physician: Karol Jacques [facility] Course: 71-year-old pleasant female admitted for postoperative area patient does have history of a squamous cell lung cancer patient does have posterior obstructive pneumonia on the left sided empyema patient has a chest tube in place and pleural fluid cultures is polymicrobial with streptococcal species, anaerobic gram-negative bacilli. Patient is presently on Zosyn and levofloxacin as per recommendations from and infectious disease. May not need levofloxacin levofloxacin. Patient underwent a repeat bronchoscopy yesterday. Patient had left-sided chest tube does look lethargic, patient may need intervention by cardiac thoracic surgery for loculated pleural effusions. For that reason patient is being transferred to [facility]. Chest x-ray from today did show a trapped lung or the possibility of small pneumothorax and continued pleural effusion CAT scan of the chest is being obtained and I do not have any results available at this time. Assessment and Plan Plan: -Empyema: Secondary to postobstructive pneumonia on the left side patient has a chest tube in place, -New-onset A. fib, on verapamil presently not on anti-correlation for possible intervention by cardiac thoracic surgery -Squamous cell carcinoma with the left lung mass -Acute hypoxic respiratory failure secondary to assessment 1 -Hyperlipidemia -Hypertension -Constipation: Lactulose as needed Patient Condition at Discharge: Good Plan - Discharge Summary Discharge Rx Participant: No New Discharge Prescriptions: No Action Ezetimibe [Zetia] 10 mg PO DAILY Albuterol Sulfate [Proair Hfa] 2 puff INHALATION RT-Q6H PRN PRN Reason: Shortness Of Breath predniSONE See Taper PO DAILY Levofloxacin [Levaquin] 500 mg PO DAILY amLODIPine [Norvasc] 10 mg PO DAILY Gemfibrozil [Lopid] 600 mg PO AC-BID Aspirin EC [Ecotrin Low Dose] 81 mg PO HS Discharge Medication List Ezetimibe [Zetia] 10 mg PO DAILY 10/15/13 [History] Albuterol Sulfate [Proair Hfa] 2 puff INHALATION RT-Q6H PRN 10/26/17 [History] Aspirin EC [Ecotrin Low Dose] 81 mg PO HS 10/26/17 [History] Gemfibrozil [Lopid] 600 mg PO AC-BID 10/26/17 [History] Levofloxacin [Levaquin] 500 mg PO DAILY 10/26/17 [History] amLODIPine [Norvasc] 10 mg PO DAILY 10/26/17 [History] predniSONE See Taper PO DAILY 10/26/17 [History] Follow up Appointment(s)/Referral(s): Karol Jacques MD [Primary Care Provider] - 11/09/17 2:45 pm (Tuesday -earliest available appointment) Ian Tavarez MD [STAFF PHYSICIAN] - 3 Weeks Activity/Diet/Wound Care/Special Instructions: pts copay for Eliquis is $45-free 30 days filled in pharmacy CALL [phone] AT DISCHARGE TO LET THEM KNOW STATUS OF PIGTAIL DRAIN (IF IT'S REMOVED OR NOT) Pt has O2 and nebulizer ready to be delivered through [facility] [phone], pt to call when DC'd
--- NOTE | 2017-11-02 10:44 | CT ---
EXAMINATION TYPE: CT chest wo con DATE OF EXAM: 11/02/2017 COMPARISON: Prior CT chest 10/30/2017 HISTORY: empyema and lung cancer CT DLP: 282.70 mGycm. Automated Exposure Control for Dose Reduction was Utilized. TECHNIQUE: CT scan of the thorax is performed without IV contrast. FINDINGS: LUNGS: Interval placement of a left pleural drainage catheter is noted laterally, there is subcutaneo us emphysema present. Left-sided pneumothorax or tract lung is present, there is visible visceral ple ural thickening. Left lower lobe necrotic mass is again seen but is not well-defined. Emphysematous c hanges are present bilaterally. SMALL RIGHT EFFUSION AND ASSOCIATED BASILAR ATELECTASIS ARE PRESENT. MEDIASTINUM: Lack of IV contrast is noted to limit evaluation for mediastinal and especially hilar ad enopathy. There are no definitive greater than 1 cm hilar or mediastinal lymph nodes. No cardiomega ly or pericardial effusion is seen. OTHER: Coronary artery calcifications again noted. No evident pericardial effusion. Lack of contrast could compromise sensitivity. IMPRESSION: Left-sided pneumothorax versus trapped lung, air in the pleural spaces greatest at the le ft lung base adjacent to the catheter. Probable necrotic tumor at the left lung base. Noncontrast exa m. Subcutaneous emphysema, pleural drain in place.
[2017-11-02 11:46] LABS: Glucose,Whole Blood 179 mg/dL (75-99)
[2017-11-02] MEDS: LEVOFLOXACIN 250 MG TAB PO SCH (13:30)
[2017-11-02 15:14] VITALS: BP 108/62; TEMP 96.9
[2017-11-02] MEDS: SODIUM CHLORIDE 0.9% 1,000 ML IV SCH (15:34)
[2017-11-02] MEDS: LACTATED RINGERS 1,000 ML IV SCH (15:35)
[2017-11-02 16:39] LABS: Glucose,Whole Blood 181 mg/dL (75-99)
[2017-11-02 17:21] VITALS: PULSE 80; RESP 12
== END 2017-11-02 17:40 | disposition short-term general hospital (02) | DRG 166 ==
LOC: EC 09:34 → OBSVTOIN 12:52 → 5ONC 12:52 → 6SEL 19:06
PROVIDERS: ADMIT Hospitalist; ATTEND Hospitalist
PROC: 0W9930Z Drainage of Right Pleural Cavity with Drainage Device, Percutaneous Approach (ICD-10-PCS; 2017-10-27)
PROC: 0B9J8ZX Drainage of Left Lower Lung Lobe, Via Natural or Artificial Opening Endoscopic, Diagnostic (ICD-10-PCS; principal; 2017-11-01 12:30)
PROC: 0BDJ8ZX Extraction of Left Lower Lung Lobe, Via Natural or Artificial Opening Endoscopic, Diagnostic (ICD-10-PCS; 2017-11-01 12:30)
DX: J86.9 Pyothorax without fistula (principal); J18.9 Pneumonia, unspecified organism; J96.01 Acute respiratory failure with hypoxia; E87.2 Acidosis; C34.32 Malignant neoplasm of lower lobe, left bronchus or lung; J44.0 Chronic obstructive pulmonary disease with (acute) lower respiratory infection; S22.41XK Multiple fractures of ribs, right side, subsequent encounter for fracture with nonunion; J44.1 Chronic obstructive pulmonary disease with (acute) exacerbation; I48.0 Paroxysmal atrial fibrillation; K21.9 Gastro-esophageal reflux disease without esophagitis; M19.91 Primary osteoarthritis, unspecified site; B95.5 Unspecified streptococcus as the cause of diseases classified elsewhere; I10 Essential (primary) hypertension; E78.2 Mixed hyperlipidemia; D64.9 Anemia, unspecified; K59.00 Constipation, unspecified; Z90.49 Acquired absence of other specified parts of digestive tract; Z87.891 Personal history of nicotine dependence; Z79.2 Long term (current) use of antibiotics; Z79.82 Long term (current) use of aspirin; Z79.52 Long term (current) use of systemic steroids; Z79.899 Other long term (current) drug therapy; Z87.440 Personal history of urinary (tract) infections; Z98.890 Other specified postprocedural states; Z86.010 Personal history of colon polyps; Z80.6 Family history of leukemia
CPT/HCPCS: 31623; 31624; 32551; 36415; 70460; 71045; 71046; 71250; 71260; 76604; 76942; 80048; 80053; 82550; 82553; 82945; 83605; 83615; 83735; 83880; 84157; 84443; 84484; 85025; 85610; 85730; 87070; 87075; 87077; 87102; 87186; 87205; 88104; 88108; 88305; 89050; 93005; 93306; 94640; 94760; 96365; 96372; 96375; 99214; 99291

== ENCOUNTER 2017-11-09 23:52 | Inpatient (IN) | payer MEDICARE ==
[2017-11-10] MEDS ORDERED: PANTOPRAZOLE 40 MG/10 ML VIAL ONE
[2017-11-10] MEDS ORDERED: ONDANSETRON 4 MG/2 ML VIAL ONE
[2017-11-10] MEDS ORDERED: SODIUM CHLORIDE 0.9% 1,000 ML BAG ONE ×2
[2017-11-10] MEDS ORDERED: LORazepam 2 MG/ML INJ ONE
[2017-11-10] MEDS ORDERED: SODIUM CHLORIDE 0.9% 500 ML BAG ONE
[2017-11-10] MEDS ORDERED: NOREPINEPHRINE 4 MG in DEXTROSE 5% IN WATER 250 ML IV SCH ×2 (06:00)
[2017-11-10 06:44] LABS: Creatine Kinase 20 U/L (30-135); Creatine Kinase MB 0.7 ng/mL (0.0-2.4); Troponin I <0.012 ng/mL (0.000-0.034)
[2017-11-10 06:45] LABS: Ammonia <9 umol/L (<30)
[2017-11-10 06:46] LABS: ALT 32 U/L (9-52); AST 27 U/L (14-36); Albumin 1.7 g/dL (3.5-5.0); Alkaline Phosphatase 71 U/L (38-126); Anion Gap 2 mmol/L; Blood Urea Nitrogen 14 mg/dL (7-17); Calcium 7.3 mg/dL (8.4-10.2); Carbon Dioxide 29 mmol/L (22-30); Chloride 107 mmol/L (98-107); Glucose 146 mg/dL (74-99); Phosphorus 2.8 mg/dL (2.5-4.5); Potassium 4.4 mmol/L (3.5-5.1); Sodium 138 mmol/L (137-145); Total Bilirubin 0.4 mg/dL (0.2-1.3); Total Protein 3.9 g/dL (6.3-8.2)
[2017-11-10 06:47] LABS: Lipase 4409 U/L (23-300)
[2017-11-10 06:49] LABS: Anisocytosis Moderate; Basophils % (A) 0 %; Eosinophils # (A) 0.1 k/uL (0-0.7); Eosinophils % (A) 1 %; HCT 20.4 % (34.0-46.0); Hypochromasia Slight; Lymphocytes # (A) 1.1 k/uL (1.0-4.8); Lymphocytes % (A) 10 %; MCH 28.5 pg (25.0-35.0); MCHC 32.4 g/dL (31.0-37.0); Mean Platelet Volume 7.7; Monocytes # (A) 0.2 k/uL (0-1.0); Monocytes % (A) 2 %; Neutrophils # (A) 8.9 k/uL (1.3-7.7); Neutrophils % (A) 86 %; Platelet Count 513 k/uL (150-450); Poikilocytosis Slight; RBC 2.32 m/uL (3.80-5.40); RDW 20.4 % (11.5-15.5); WBC 10.4 k/uL (3.8-10.6)
[2017-11-10] MEDS ORDERED: NALOXONE 0.4 MG/ML 1 ML VIAL IV PRN (06:50)
[2017-11-10] MEDS ORDERED: MORPHINE SULFATE 4 MG/ML SYRINGE IV PRN (06:50)
[2017-11-10 06:51] LABS: HGB 6.7 gm/dL (11.4-16.0)
[2017-11-10 06:55] LABS: Prothrombin Time 10.1 sec (9.0-12.0)
[2017-11-10 06:59] LABS: Appearance,Urine Clear (Clear); Bacteria,Urine Rare /hpf; Bilirubin,Urine Negative (Negative); Blood,Urine Negative (Negative); Color,Urine Yellow; Glucose,Urine (UA) Negative (Negative); Hyaline Casts,Urine 41 /lpf (0-2); Ketones,Urine Negative (Negative); Leukocyte Esterase,Urine Trace (Negative); Mucus,Urine Many /hpf; Nitrite,Urine Negative (Negative); Protein,Urine 1+ (Negative); Specific Gravity,Urine 1.018 (1.001-1.035); Squamous Epithelial Cell,Urine 1 /hpf (0-4); Urobilinogen,Urine <2.0 mg/dL (<2.0); WBC,Urine 1 /hpf (0-5)
[2017-11-10 08:03] VITALS: TEMP 98.6
--- NOTE | 2017-11-10 08:53 | XR ---
EXAMINATION TYPE: XR chest 1V DATE OF EXAM: 11/10/2017 COMPARISON: 11/10/2017 HISTORY: Shortness of breath TECHNIQUE: Single frontal view of the chest is obtained. FINDINGS: Bilateral pleural effusion and consolidation greater on the left noted. No sizable pneumot horax. Diffuse osteopenia and arthropathy shoulders. Atherosclerotic change aorta. Chronic deformity of the right rib cage. Question of apex. IMPRESSION: Stable pleural-parenchymal changes consolidation pleural effusion greater on the left. C hronic appearing tiny left apical pneumothorax noted.
[2017-11-10] MEDS ORDERED: PANTOPRAZOLE 40 MG/10 ML VIAL IV SCH (09:00)
--- NOTE | 2017-11-10 09:00 | P.CNPUL ---
History of Present Illness Consult date: 11/10/17 Requesting physician: Cesar Munoz Chief complaint: Acute GI bleed History of present illness: Mrs. Gomez is a 77-year-old white female patient of Dr. Jacques, presented to the hospital on 11/09/2017 for evaluation of acute blood loss anemia related to GI bleeding. Patient has a known history of squamous cell lung carcinoma, locally advanced, postobstructive pneumonia, and empyema. Patient was recently diagnosed with lung cancer in September 2017 when the left lung mass was seen on the chest x-ray. Follow-up CAT scan of the chest showed a suspicious left infrahilar mass with obstruction/endobronchial narrowing in the left lower lobe , it was measuring 5.3 x 4.2 cm in size in addition to atelectatic changes at the left lung base. Patient underwent bronchoscopy and the biopsies from the left lower lobe showed squamous cell carcinoma. PET scan on 10/22/2017 showed a sizable left-sided pleural effusion with loculation along the left lateral chest area, and an uptake noted in the left hilar region, left lower lobe with an SUV of 9-10. There was air-fluid level and pockets of air present in the left lower lobe possibly due to necrotic tumor, or postobstructive pneumonia/ abscess formation. Patient has an underlying history of emphysema, her FEV1 is 1.48 L. She was hospitalized from 10/26/2017 through 11/02/2017 here at [facility], hypoxic respiratory failure secondary to postobstructive pneumonia , empyema, loculated pleural effusion on the left. She underwent a left chest tube placement by interventional radiology drainage of large amount of purulent material. Pleural fluid was found to be positive for multi-microbial growth, hemolytic strep species, anaerobic gram-negative and gram-positive organisms. Pleural fluid cultures showed cellular material with numerous bacteria and blood consistent with empyema, but no cytologically malignant cells. There was an attempt to drain the loculated left chest pleural effusion with the placement of a second pigtail catheter and infusion of TPA. Patient was treated with Zosyn and Levaquin. She developed atrial fibrillation with rapid ventricular response, patient was treated with IV Cardizem, she was started on anticoagulation in the form of Eliquis, converted back to sinus. There was an attempt to drain the fluid of the lung abscess endoscopically on 11/01/2017, and the large tumor was completely occluding the basilar segments of the left lower lobe. BAL of the left lower lobe bronchus and brushings of the tumor were done, and cytology showed atypical squamous cells consistent with neoplasm. There was an ongoing concern that there was still an abscess in the posterior left lower lobe with some necrosis in addition to the left infrahilar mass. Case was discussed with the thoracic surgeon from [facility], and patient was transferred there on 11/02/2017 for further management. At the [facility] Dr. Kelley did 3 more bronchoscopies, however was unable to drain the abscess endoscopically, due to the large tumor obstructing the left lower lobe. Patient was not a surgical candidate, and she was discharged home on Tuesday on 11/07/2017 with recommendation for hospice enrollment. Chest tube was discontinued and patient was sent home on antibiotics, and Lovenox for anticoagulation. She was at the pulmonary office to see Dr. Jones yesterday on 11/09/2017, she was doing relatively well. When she went home she started complaining of abdominal pain, and started having several episodes of dark brown emesis, in addition to dark tarry stools. The family states that Dr. us started last week while still at [facility], however the patient continued on her anticoagulation. NG tube placement was attempted, but patient pulled it out. She was admitted to intensive care unit, her admission hemoglobin is 6.7, WBC is 10.4, INR is 1.0, lites are within normal limits, BUN is 14, creatinine 0.50. LFTs were normal, BNP was 1300, troponin was negative 1, lipase was elevated at 4409. Patient is receiving a unit of packed red blood cells. Patient is requiring vasopressor support in the form of Levaquin and, currently infusing at a rate of 10 mics/min. Patient is sinus rhythm with frequent PACs. She is lethargic, but opens eyes to verbal stimulation. Her family is at the bedside, and had expressed a wish to them previously that she would want to be at home when she is dying. Patient CODE STATUS is DO NOT RESUSCITATE, and the family is hospice care. Review of Systems All systems: negative Constitutional: Denies chills, Denies fever Eyes: denies blurred vision, denies pain Ears, nose, mouth and throat: Denies headache, Denies sore throat Cardiovascular: Reports irregular heart beat, Denies chest pain, Denies shortness of breath Respiratory: Denies cough Gastrointestinal: Reports coffee ground emesis, Reports hematemesis, Reports hematochezia, Reports loss of appetite, Denies abdominal pain, Denies diarrhea, Denies nausea, Denies vomiting Genitourinary: Denies dysuria, Denies hematuria Musculoskeletal: Denies myalgias Integumentary: Denies pruritus, Denies rash Neurological: Denies numbness, Denies weakness Psychiatric: Denies anxiety, Denies depression Endocrine: Denies fatigue, Denies weight change Past Medical History Past Medical History: Cancer, GERD/Reflux, Hyperlipidemia, Hypertension, Osteoarthritis (OA), Skin Disorder Additional Past Medical History / Comment(s): Squamous for carcinoma of the lung , locally advanced at least stage III, left-sided pleural effusion, hyperlipidemia, hypertension, COPD, recurrent UTIs, history of psoriasis, colonic polyps, history of benign bilaterally breast lesions with previous lumpectomies, osteoarthritis History of Any Multi-Drug Resistant Organisms: None Reported Past Surgical History: Cholecystectomy, Hysterectomy Additional Past Surgical History / Comment(s): 10/13/17 bronchoscopy with BAL/bx/ brushings, partial colectomy, bilateral multiple breast lumpectomies/biopsies all benign, colonoscopy/benign polypectomy. Past Anesthesia/Blood Transfusion Reactions: No Reported Reaction Smoking Status: Former smoker Additional Past Alcohol Use History / Comment(s): Patient was a smoker of three- quarter pack per day for 50 years and quit 2-3 weeks ago. She drinks occasionally and has 3 glasses of wine per week. She denies any marijuana street drug use. She is retired and lives at home with her . - Past Family History Father Family Medical History: Cancer Additional Family Medical History / Comment(s): Father had leukemia. Mother Family Medical History: Cancer Additional Family Medical History / Comment(s): Mother had breast cancer. Sister(s) Family Medical History: Cancer Additional Family Medical History / Comment(s): Sister had colon cancer. Medications and Allergies Home Medications Medication Instructions Recorded Confirmed Type Ezetimibe [Zetia] 10 mg PO DAILY 10/15/13 11/10/17 History Albuterol Sulfate [Proair Hfa] 2 puff INHALATION RT-Q6H PRN 10/26/17 11/10/17 History Aspirin EC [Ecotrin Low Dose] 81 mg PO HS 10/26/17 11/10/17 History Gemfibrozil [Lopid] 600 mg PO AC-BID 10/26/17 11/10/17 History Levofloxacin [Levaquin] 500 mg PO DAILY 10/26/17 11/10/17 History amLODIPine [Norvasc] 10 mg PO DAILY 10/26/17 11/10/17 History predniSONE See Taper PO DAILY 10/26/17 11/10/17 History Allergies Allergy/AdvReac Type Severity Reaction Status Date / Time benazepril HCl [From Lotrel] Allergy Swelling Verified 10/26/17 10:13 Physical Exam Vitals: Vital Signs Temp Pulse Resp BP Pulse Ox 11/10/17 08:00 98.6 F 88 16 102/55 100 11/10/17 07:45 94 19 100 11/10/17 07:30 96 15 86/48 100 11/10/17 07:15 94 26 H 86/48 98 11/10/17 07:00 91 24 86/48 99 11/10/17 06:50 94 23 86/48 99 11/10/17 06:40 93 28 H 86/48 99 11/10/17 06:30 97 26 H 82/52 97 11/10/17 06:20 95 27 H 82/52 96 11/10/17 06:12 95 11/10/17 06:10 88 24 97/51 98 11/10/17 06:00 94 19 90/53 98 11/10/17 05:50 101 H 33 H 94/59 93 L 11/10/17 05:40 96 13 96/49 94 L 11/10/17 05:30 101 H 20 82/43 90 L 11/10/17 05:20 94 26 H 83/51 91 L 11/10/17 05:10 96 21 86/40 90 L 11/10/17 05:00 94 23 80/49 92 L 11/10/17 04:50 98 17 96 11/10/17 04:40 92 26 H 76/42 78 L 11/10/17 04:30 95 18 83/46 86 L 11/10/17 04:20 105 H 45 H 91 L 11/10/17 04:10 91 26 H 73/57 96 11/10/17 04:00 100 30 H 56/44 98 11/10/17 03:50 81 19 81/42 98 11/10/17 03:40 88 60 H 66/40 98 11/10/17 03:30 91 33 H 75/49 92 L 11/10/17 03:20 90 34 H 76/47 88 L 11/10/17 03:10 75/43 11/10/17 03:00 88 20 78/45 92 L 11/10/17 02:50 92 86/45 96 11/10/17 02:40 86 86/45 98 11/10/17 02:30 74/41 97 Intake and Output 11/09/17 11/10/17 11/10/17 22:59 06:59 14:59 Intake Total 37.5 Output Total 50 Balance -12.5 Intake: Intake, IV Titration 37.5 Amount Norepinephrine 4 mg In 37.5 Dextrose 5% in Water 250 ml @ Titrate IV .Q0M [facility] Rx#:[id number] Output: Urine 50 Other: Weight 65.8 kg GENERAL EXAM: Lethargic, 77-year-old white female, appears to be generally swollen, comfortable in no apparent distress. HEAD: Normocephalic/atraumatic. EYES: Normal reaction of pupils, equal size. Conjunctiva pink, sclera white. NOSE: Clear with pink turbinates. THROAT: No erythema or exudates. NECK: No masses, no JVD, no thyroid enlargement, no adenopathy. CHEST: No chest wall deformity. Symmetrical expansion. LUNGS: Coarse lung sounds, bilaterally, no wheezing. CVS: Regular rate and rhythm, normal S1 and S2, no gallops, no murmurs, no rubs ABDOMEN: Soft, nontender. No hepatosplenomegaly, normal bowel sounds, no guarding or rigidity. EXTREMITIES: No clubbing, bilateral upper and lower extremity edema, no cyanosis , 2+ pulses and upper and lower extremities. MUSCULOSKELETAL: Muscle strength and tone normal. SPINE: No scoliosis or deformity SKIN: No rashes CENTRAL NERVOUS SYSTEM: Lethargic, but opens eyes to verbal stimulation. No focal deficits, tone is normal in all 4 extremities. Results - Laboratory Findings CBC and BMP: 11/10/17 00:12 11/10/17 00:12 PT/INR, D-dimer PT 10.1 sec (9.0-12.0) 11/10/17 00:12 INR 1.0 (<1.2) 11/10/17 00:12 Abnormal lab findings: Abnormal Labs 11/10/17 11/10/17 11/10/17 00:12 00:12 00:12 RBC 2.32 L Hgb 6.7 L* D Hct 20.4 L RDW 20.4 H Plt Count 513 H Neutrophils # 8.9 H Creatinine 0.50 L Glucose 146 H Calcium 7.3 L Total Creatine Kinase 20 L Total Protein 3.9 L Albumin 1.7 L Lipase 4409 H Urine Protein Ur Leukocyte Esterase Urine Bacteria Hyaline Casts Urine Mucus Crossmatch 11/10/17 11/10/17 00:12 01:26 RBC Hgb Hct RDW Plt Count Neutrophils # Creatinine Glucose Calcium Total Creatine Kinase Total Protein Albumin Lipase Urine Protein 1+ H Ur Leukocyte Esterase Trace H Urine Bacteria Rare H Hyaline Casts 41 H Urine Mucus Many H Crossmatch See Detail Assessment and Plan Plan: Assessment: #1. Acute blood loss anemia, secondary to acute GI bleeding, patient had several episodes of hematemesis, and black tarry stools. #2. Recent hospitalization for postobstructive pneumonia, abscess formation, empyema of the left mid and lower lobe, secondary to a large tumor in the left lower lobe, squamous cell carcinoma, at least stage III. Pleural fluid cultures showed multi microbial growth, positive for hemolytic strep multiple anaerobic gram-positive and gram-negative organisms. #3. COPD with FEV1 of 1.4 L at baseline #4. Paroxysmal atrial fibrillation, and patient was on anticoagulation with Lovenox #5. Hypertension, hyperlipidemia #6. Diagnosis of squamous cell carcinoma, in the left lower lobe, stage III Plan: The patient's overall prognosis is very poor. She did not have any surgical procedures done at [facility] but did have bronchoscopy 3. Chest tube was removed. She was thought not to be a surgical candidate. The family did make her DO NOT RESUSCITATE here in the ICU. I did speak to the ER doctor last night. The patient came in with a GI bleed. She is not a candidate for EGD in my opinion. The patient was on blood thinners prior to this. She did see my partner in the office yesterday. The family is leaning towards inpatient hospice at this time. We will like a private room. Once that happens , we'll stop all medications and focus more palliative and/or comfort measures. I performed a history & physical examination of the patient and discussed their management with my nurse practitioner, Diamond Randhawa. I reviewed the nurse practitioner's note and agree with the documented findings and plan of care. Lung sounds are positive for diffuse rhonchi. The findings and the impression was discussed with the patient. I attest to the documentation by the nurse practitioner. Time with Patient: Greater than 30
[2017-11-10 10:02] VITALS: PULSE 102
[2017-11-10] MEDS ORDERED: ONDANSETRON 4 MG/2 ML VIAL IVP PRN (10:58)
[2017-11-10] MEDS ORDERED: SCOPOLAMINE 1.5MG/72HR PATCH TRANSDERM PRN (10:58)
[2017-11-10] MEDS ORDERED: MORPHINE SULFATE (100 MG/2 ML) 100 MG in SODIUM CHLORIDE 0.9% 100 ML IV SCH (11:00)
[2017-11-10 11:11] VITALS: BP 91/49; RESP 20
--- NOTE | 2017-11-10 11:55 | XR ---
EXAMINATION TYPE: XR KUB DATE OF EXAM: 11/10/2017 8:48 AM CLINICAL HISTORY: History of lung cancer with weakness TECHNIQUE: Two supine KUB images of the abdomen are obtained. COMPARISON: PET/CT October 22, 2017 FINDINGS: Slightly gas prominent stomach is seen. There is gas seen in nondistended small and large b owel loops throughout the abdomen and pelvis. Entire abdomen is not included making evaluation subopt imal. Moderate joint space loss in both hips is present. Suspect vascular calcification left upper qu adrant and epigastric region IMPRESSION: Overall nonspecific but likely nonobstructive bowel gas pattern.
--- NOTE | 2017-11-10 11:59 | XR ---
EXAMINATION TYPE: XR chest 2V DATE OF EXAM: 11/10/2017 COMPARISON: Chest CT November 02, 2017. Chest x-ray from yesterday HISTORY: Known left-sided lung cancer with weakness and hypotension TECHNIQUE: Frontal and lateral views of the chest are obtained. FINDINGS: There is persistent left basilar opacity with horizontal felt to reflect moderate size hydropneumothorax. Subcutaneous emphysema left lateral chest wall is pr esent. Background chronic emphysematous change is seen. There is right medial basilar opacity. There is more dense left basilar opacity silhouetting left heart border. The cardiac silhouette size remain s enlarged. The osseous structures are intact. IMPRESSION: Suspect worsening moderate size hydropneumothorax since recent chest CT. No significant change from most recent chest x-ray yesterday. Left basilar findings likely reflect known neoplasm an d associated atelectasis and/or infiltrate. There is right medial basilar atelectasis and/or infiltra te. Results of suspected pneumothorax communicated to ordering ER physician at time of preliminary.
--- NOTE | 2017-11-10 12:06 | P.CONS ---
History of Present Illness - Reason for Consult Consult date: 11/10/17 GI bleed Requesting physician: Cesar Munoz - History of Present Illness 77-year-old female recently hospitalized diagnosed with left lower lobe squamous cell lung carcinoma, hypoxic respiratory failure secondary to postobstructive pneumonia empyema left pleural effusion status post chest tube insertion removal. Admitted with nausea vomiting abdominal pain coffee-ground emesis. History obtained from medical staff medical records nursing staff patient is obtunded and not able to provide history. According to the medical records she had 2 coffee-ground emesis earlier this morning. Hemoglobin 6.7. BUN 14. Creatinine 0.5. No history of known GI bleeds or peptic ulcer disease. Home medications reviewed baby aspirin prednisone noted. Family has decided to change CODE STATUS to DO NOT RESUSCITATE possible comfort care. Review of Systems Unable to obtain patient not alert Constitutional: Denies fever, chills, sweats, weight gain, or loss. HEENT: Negative for migraines, blurred vision or loss, earaches, drainage, tinnitus, oral mucosal lesions, dysphagia, or odynophagia. CARDIAC: Negative for chest pain, arrhythmias, or palpitation. RESPIRATORY: Recent diagnosis of lung cancer. COPD. Chronic shortness of breath. GI: See HPI for pertinent findings. : Negative for hematuria, urgency, frequency, polyuria, or dysuria. GYNc: Negative vaginal discharge. MUSCULOSKELETAL: Negative for muscle aches, swelling, arthritis, and arthralgias. NEUROLOGIC: Negative for stroke or TIA. ENDOCRINE: Negative for thyroid problems. SKIN: Negative for rash or itching. PSYCHIATRIC: Negative history for depression and anxiety Past Medical History Past Medical History: Cancer, GERD/Reflux, Hyperlipidemia, Hypertension, Osteoarthritis (OA), Skin Disorder Additional Past Medical History / Comment(s): Squamous for carcinoma of the lung , locally advanced at least stage III, left-sided pleural effusion, hyperlipidemia, hypertension, COPD, recurrent UTIs, history of psoriasis, colonic polyps, history of benign bilaterally breast lesions with previous lumpectomies, osteoarthritis History of Any Multi-Drug Resistant Organisms: None Reported Past Surgical History: Cholecystectomy, Hysterectomy Additional Past Surgical History / Comment(s): 10/13/17 bronchoscopy with BAL/bx/ brushings, partial colectomy, bilateral multiple breast lumpectomies/biopsies all benign, colonoscopy/benign polypectomy. Past Anesthesia/Blood Transfusion Reactions: No Reported Reaction Smoking Status: Former smoker Additional Past Alcohol Use History / Comment(s): Patient was a smoker of three- quarter pack per day for 50 years and quit 2-3 weeks ago. She drinks occasionally and has 3 glasses of wine per week. She denies any marijuana street drug use. She is retired and lives at home with her . - Past Family History Father Family Medical History: Cancer Additional Family Medical History / Comment(s): Father had leukemia. Mother Family Medical History: Cancer Additional Family Medical History / Comment(s): Mother had breast cancer. Sister(s) Family Medical History: Cancer Additional Family Medical History / Comment(s): Sister had colon cancer. Medications and Allergies Home Medications Medication Instructions Recorded Confirmed Type Ezetimibe [Zetia] 10 mg PO DAILY 10/15/13 11/10/17 History Albuterol Sulfate [Proair Hfa] 2 puff INHALATION RT-Q6H PRN 10/26/17 11/10/17 History Aspirin EC [Ecotrin Low Dose] 81 mg PO HS 10/26/17 11/10/17 History Gemfibrozil [Lopid] 600 mg PO AC-BID 10/26/17 11/10/17 History Levofloxacin [Levaquin] 500 mg PO DAILY 10/26/17 11/10/17 History amLODIPine [Norvasc] 10 mg PO DAILY 10/26/17 11/10/17 History predniSONE See Taper PO DAILY 10/26/17 11/10/17 History Allergies Allergy/AdvReac Type Severity Reaction Status Date / Time benazepril HCl [From Lotrel] Allergy Swelling Verified 11/10/17 12:12 Physical Exam Vitals: Vital Signs Temp Pulse Resp BP Pulse Ox 11/10/17 11:00 102 H 20 91/49 96 11/10/17 10:45 82 16 91/59 100 11/10/17 10:30 85 21 96/50 100 11/10/17 10:15 73 20 90/58 99 11/10/17 10:00 102 H 15 82/58 98 11/10/17 09:55 81 20 76/50 98 11/10/17 09:50 92 21 77/54 97 11/10/17 09:45 90 20 96/62 96 11/10/17 09:30 84 13 93/52 99 11/10/17 09:15 98.6 F 94 13 110/58 100 11/10/17 09:00 92 13 100 11/10/17 08:45 85 28 H 84/54 98 11/10/17 08:30 88 15 80/48 100 11/10/17 08:15 78 13 91/64 100 11/10/17 08:00 98.6 F 88 16 102/55 100 11/10/17 07:45 94 19 100 11/10/17 07:30 96 15 86/48 100 11/10/17 07:15 94 26 H 86/48 98 11/10/17 07:00 91 24 86/48 99 11/10/17 06:50 94 23 86/48 99 11/10/17 06:40 93 28 H 86/48 99 11/10/17 06:30 97 26 H 82/52 97 11/10/17 06:20 95 27 H 82/52 96 11/10/17 06:12 95 11/10/17 06:10 88 24 97/51 98 11/10/17 06:00 94 19 90/53 98 11/10/17 05:50 101 H 33 H 94/59 93 L 11/10/17 05:40 96 13 96/49 94 L 11/10/17 05:30 101 H 20 82/43 90 L 11/10/17 05:20 94 26 H 83/51 91 L 11/10/17 05:10 96 21 86/40 90 L 11/10/17 05:00 94 23 80/49 92 L 11/10/17 04:50 98 17 96 11/10/17 04:40 92 26 H 76/42 78 L 11/10/17 04:30 95 18 83/46 86 L 11/10/17 04:20 105 H 45 H 91 L 11/10/17 04:10 91 26 H 73/57 96 11/10/17 04:00 100 30 H 56/44 98 11/10/17 03:50 81 19 81/42 98 11/10/17 03:40 88 60 H 66/40 98 11/10/17 03:30 91 33 H 75/49 92 L 11/10/17 03:20 90 34 H 76/47 88 L 11/10/17 03:10 75/43 11/10/17 03:00 88 20 78/45 92 L 11/10/17 02:50 92 86/45 96 11/10/17 02:40 86 86/45 98 11/10/17 02:30 74/41 97 Intake and Output 11/09/17 11/10/17 11/10/17 22:59 06:59 14:59 Intake Total 116.3 Output Total 73 Balance 43.3 Intake: Intake, IV Titration 116.3 Amount Norepinephrine 4 mg In 116.3 Dextrose 5% in Water 250 ml @ Titrate IV .Q0M [facility] Rx#:[id number] Output: Urine 73 Other: Voiding Method Indwelling Catheter Weight 65.8 kg General appearance: The patient is sleeping obtunded. Lethargic. HET: Head is normocephalic and atraumatic. Pupils are equal and reactive. Oropharynx is clear without lesions. Neck: Supple without lymphadenopathy. Trachea midline. Heart: S1 S2. Regular rate and rhythm. Lungs: Diminished throughout. Abdomen: Soft, nontender, nondistended with bowel sounds. No peritoneal signs. No palpable organomegaly or masses. Extremities: Normal skin color and turgor. No cyanosis, rash, ulceration, clubbing, or edema. Radial and pedal pulses are 2/4 bilaterally. Neurological: Lethargic opens eyes to verbal stimulation. Results CBC & Chem 7: 11/10/17 00:12 11/10/17 00:12 Labs: Abnormal Lab Results - Last 24 Hours (Table) 11/10/17 11/10/17 11/10/17 Range/Units 00:12 00:12 00:12 RBC 2.32 L (3.80-5.40) m/uL Hgb 6.7 L* D (11.4-16.0) gm/dL Hct 20.4 L (34.0-46.0) % RDW 20.4 H (11.5-15.5) % Plt Count 513 H (150-450) k/uL Neutrophils # 8.9 H (1.3-7.7) k/uL Creatinine 0.50 L (0.52-1.04) mg/dL Glucose 146 H (74-99) mg/dL Calcium 7.3 L (8.4-10.2) mg/dL Total Creatine Kinase 20 L (30-135) U/L Total Protein 3.9 L (6.3-8.2) g/dL Albumin 1.7 L (3.5-5.0) g/dL Lipase 4409 H (23-300) U/L Urine Protein (Negative) Ur Leukocyte Esterase (Negative) Urine Bacteria (None) /hpf Hyaline Casts (0-2) /lpf Urine Mucus (None) /hpf Crossmatch 11/10/17 11/10/17 Range/Units 00:12 01:26 RBC (3.80-5.40) m/uL Hgb (11.4-16.0) gm/dL Hct (34.0-46.0) % RDW (11.5-15.5) % Plt Count (150-450) k/uL Neutrophils # (1.3-7.7) k/uL Creatinine (0.52-1.04) mg/dL Glucose (74-99) mg/dL Calcium (8.4-10.2) mg/dL Total Creatine Kinase (30-135) U/L Total Protein (6.3-8.2) g/dL Albumin (3.5-5.0) g/dL Lipase (23-300) U/L Urine Protein 1+ H (Negative) Ur Leukocyte Esterase Trace H (Negative) Urine Bacteria Rare H (None) /hpf Hyaline Casts 41 H (0-2) /lpf Urine Mucus Many H (None) /hpf Crossmatch See Detail Assessment and Plan (1) Coffee ground emesis Status: Acute Code(s): K92.0 - HEMATEMESIS SNOMED Code(s): 638254176 (2) Acute blood loss anemia Status: Acute Code(s): D62 - ACUTE POSTHEMORRHAGIC ANEMIA SNOMED Code(s): 592890595 (3) Squamous cell lung cancer Status: Acute Priority: High Code(s): C34.90 - MALIGNANT NEOPLASM OF UNSP PART OF UNSP BRONCHUS OR LUNG SNOMED Code(s): 534321517 Plan: Case discussed with software project manager Dr. Trevino as well as with family. Continue with conservative measures. IV Protonix 40 mg twice daily. CBC monitoring. Blood transfusions as indicated. Patient is an increased risk for endoscopic procedures at this time secondary to her underlying respiratory status. Thank you for this kind referral and the opportunity to participate in the care of your patient. This consultation was discussed with Dr. Fitch. The impression and plan of care have been directed as dictated.
[2017-11-10 14:22] LABS: Glucose,Whole Blood 238 mg/dL (75-99)
--- NOTE | 2017-11-10 14:43 | P.HPIM ---
History of Present Illness 77-year-old with us consul lung cancer is well-known to me with a day of from her previous hospital physician patient was transferred to [facility] but for her a loculated pleural effusion for possible VATS procedure and entrapped lung. Patient is high risk for any procedure. And patient was subsequently discharged from [facility] has seen Dr. Jacques plan was to start her on home hospice meantime patient started having GI bleed coffee- ground emesis as of which patient was admitted. Today linen checker discussed with the family and I talked to the family as well and patient will be made hospice and comfort care. Review of Systems PHYSICAL EXAMINATION: GENERAL: Patient is alert severely lethargic HEENT: Pupils are round and equally reacting to light. EOMI. No scleral icterus. No conjunctival pallor. Normocephalic, atraumatic. No pharyngeal erythema. No thyromegaly. CARDIOVASCULAR: S1 and S2 present. No murmurs, rubs, or gallops. Tachycardic PULMONARY: Mild bibasilar crackles are appreciated ABDOMEN: Soft, nontender, nondistended, normoactive bowel sounds. No palpable organomegaly. MUSCULOSKELETAL: No joint swelling or deformity. EXTREMITIES: No cyanosis, clubbing, or pedal edema. NEUROLOGICAL: Gross neurological examination did not reveal any focal deficits. SKIN: No rashes. 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 Past Anesthesia/Blood Transfusion Reactions: No Reported Reaction Smoking Status: Former smoker Additional Past Alcohol Use History / Comment(s): Patient was a smoker of three- quarter pack per day for 50 years and quit 2-3 weeks ago. She drinks occasionally and has 3 glasses of wine per week. She denies any marijuana street drug use. She is retired and lives at home with her . - Past Family History Father Family Medical History: Cancer Additional Family Medical History / Comment(s): Father had leukemia. Mother Family Medical History: Cancer Additional Family Medical History / Comment(s): Mother had breast cancer. Sister(s) Family Medical History: Cancer Additional Family Medical History / Comment(s): Sister had colon cancer. Medications and Allergies Home Medications Medication Instructions Recorded Confirmed Type Ezetimibe [Zetia] 10 mg PO DAILY 10/15/13 11/10/17 History Albuterol Sulfate [Proair Hfa] 2 puff INHALATION RT-Q6H PRN 10/26/17 11/10/17 History Aspirin EC [Ecotrin Low Dose] 81 mg PO HS 10/26/17 11/10/17 History Gemfibrozil [Lopid] 600 mg PO AC-BID 10/26/17 11/10/17 History Levofloxacin [Levaquin] 500 mg PO DAILY 10/26/17 11/10/17 History amLODIPine [Norvasc] 10 mg PO DAILY 10/26/17 11/10/17 History predniSONE See Taper PO DAILY 10/26/17 11/10/17 History Allergies Allergy/AdvReac Type Severity Reaction Status Date / Time benazepril HCl [From Lotrel] Allergy Swelling Verified 11/10/17 12:12 Physical Exam Vitals: Vital Signs Temp Pulse Resp BP Pulse Ox 11/10/17 11:00 102 H 20 91/49 96 11/10/17 10:45 82 16 91/59 100 11/10/17 10:30 85 21 96/50 100 11/10/17 10:15 73 20 90/58 99 11/10/17 10:00 102 H 15 82/58 98 11/10/17 09:55 81 20 76/50 98 11/10/17 09:50 92 21 77/54 97 11/10/17 09:45 90 20 96/62 96 11/10/17 09:30 84 13 93/52 99 11/10/17 09:15 98.6 F 94 13 110/58 100 11/10/17 09:00 92 13 100 11/10/17 08:45 85 28 H 84/54 98 11/10/17 08:30 88 15 80/48 100 11/10/17 08:15 78 13 91/64 100 11/10/17 08:00 98.6 F 88 16 102/55 100 11/10/17 07:45 94 19 100 11/10/17 07:30 96 15 86/48 100 11/10/17 07:15 94 26 H 86/48 98 11/10/17 07:00 91 24 86/48 99 11/10/17 06:50 94 23 86/48 99 11/10/17 06:40 93 28 H 86/48 99 11/10/17 06:30 97 26 H 82/52 97 11/10/17 06:20 95 27 H 82/52 96 11/10/17 06:12 95 11/10/17 06:10 88 24 97/51 98 11/10/17 06:00 94 19 90/53 98 11/10/17 05:50 101 H 33 H 94/59 93 L 11/10/17 05:40 96 13 96/49 94 L 11/10/17 05:30 101 H 20 82/43 90 L 11/10/17 05:20 94 26 H 83/51 91 L 11/10/17 05:10 96 21 86/40 90 L 11/10/17 05:00 94 23 80/49 92 L 11/10/17 04:50 98 17 96 11/10/17 04:40 92 26 H 76/42 78 L 11/10/17 04:30 95 18 83/46 86 L 11/10/17 04:20 105 H 45 H 91 L 11/10/17 04:10 91 26 H 73/57 96 11/10/17 04:00 100 30 H 56/44 98 11/10/17 03:50 81 19 81/42 98 11/10/17 03:40 88 60 H 66/40 98 11/10/17 03:30 91 33 H 75/49 92 L 11/10/17 03:20 90 34 H 76/47 88 L 11/10/17 03:10 75/43 11/10/17 03:00 88 20 78/45 92 L 11/10/17 02:50 92 86/45 96 11/10/17 02:40 86 86/45 98 11/10/17 02:30 74/41 97 Intake and Output 07/11/10/17 11/10/17 22:59 06:59 14:59 Intake Total 157.6 Output Total 73 Balance 84.6 Intake: Intake, IV Titration 157.6 Amount Norepinephrine 4 mg In 157.6 Dextrose 5% in Water 250 ml @ Titrate IV .Q0M [facility] Rx#:[id number] Output: Urine 73 Other: Voiding Method Indwelling Catheter Weight 65.8 kg Results CBC & Chem 7: 11/10/17 00:12 11/10/17 00:12 Labs: Abnormal Lab Results - Last 24 Hours (Table) 11/10/17 11/10/17 11/10/17 Range/Units 00:12 00:12 00:12 RBC 2.32 L (3.80-5.40) m/uL Hgb 6.7 L* D (11.4-16.0) gm/dL Hct 20.4 L (34.0-46.0) % RDW 20.4 H (11.5-15.5) % Plt Count 513 H (150-450) k/uL Neutrophils # 8.9 H (1.3-7.7) k/uL Creatinine 0.50 L (0.52-1.04) mg/dL Glucose 146 H (74-99) mg/dL POC Glucose (mg/dL) (75-99) mg/dL Calcium 7.3 L (8.4-10.2) mg/dL Total Creatine Kinase 20 L (30-135) U/L Total Protein 3.9 L (6.3-8.2) g/dL Albumin 1.7 L (3.5-5.0) g/dL Lipase 4409 H (23-300) U/L Urine Protein (Negative) Ur Leukocyte Esterase (Negative) Urine Bacteria (None) /hpf Hyaline Casts (0-2) /lpf Urine Mucus (None) /hpf Crossmatch 11/10/17 11/10/17 11/10/17 Range/Units 00:12 01:26 02:24 RBC (3.80-5.40) m/uL Hgb (11.4-16.0) gm/dL Hct (34.0-46.0) % RDW (11.5-15.5) % Plt Count (150-450) k/uL Neutrophils # (1.3-7.7) k/uL Creatinine (0.52-1.04) mg/dL Glucose (74-99) mg/dL POC Glucose (mg/dL) 238 H (75-99) mg/dL Calcium (8.4-10.2) mg/dL Total Creatine Kinase (30-135) U/L Total Protein (6.3-8.2) g/dL Albumin (3.5-5.0) g/dL Lipase (23-300) U/L Urine Protein 1+ H (Negative) Ur Leukocyte Esterase Trace H (Negative) Urine Bacteria Rare H (None) /hpf Hyaline Casts 41 H (0-2) /lpf Urine Mucus Many H (None) /hpf Crossmatch See Detail Assessment and Plan Plan: -Acute blood loss anemia from upper GI bleed -Recent postobstructive pneumonia -Spinal cell carcinoma -Loculated pleural effusion -Proximal atrial fibrillation -Hypertension Patient will be hospice general inpatient. All the medications will be discussed uterine except for comfort medications.
--- NOTE | 2017-11-10 14:44 | P.DS ---
Providers Date of admission: 11/10/17 01:00 Attending physician: Cesar Munoz Consults: 11/10/17 06:50 Consult Physician Stat Consulting Provider: William Trevino Consult Reason/Comments: icu management Do you want consulting provider notified?: Already Contacted Placement Type Exists?: Yes Consult Physician Stat Consulting Provider: Isaias Baum Consult Reason/Comments: GI Bleed, anemia Do you want consulting provider notified?: Yes Primary care physician: Karol Jacques [facility] Course: Please refer to my HPI Plan - Discharge Summary Discharge Rx Participant: No New Discharge Prescriptions: No Action Ezetimibe [Zetia] 10 mg PO DAILY Albuterol Sulfate [Proair Hfa] 2 puff INHALATION RT-Q6H PRN PRN Reason: Shortness Of Breath predniSONE See Taper PO DAILY Levofloxacin [Levaquin] 500 mg PO DAILY amLODIPine [Norvasc] 10 mg PO DAILY Gemfibrozil [Lopid] 600 mg PO AC-BID Aspirin EC [Ecotrin Low Dose] 81 mg PO HS Discharge Medication List Ezetimibe [Zetia] 10 mg PO DAILY 10/15/13 [History] Albuterol Sulfate [Proair Hfa] 2 puff INHALATION RT-Q6H PRN 10/26/17 [History] Aspirin EC [Ecotrin Low Dose] 81 mg PO HS 10/26/17 [History] Gemfibrozil [Lopid] 600 mg PO AC-BID 10/26/17 [History] Levofloxacin [Levaquin] 500 mg PO DAILY 10/26/17 [History] amLODIPine [Norvasc] 10 mg PO DAILY 10/26/17 [History] predniSONE See Taper PO DAILY 10/26/17 [History] Follow up Appointment(s)/Referral(s): Karol Jacques MD [Primary Care Provider] - 1 Week Discharge Disposition: DISCH TO [facility]
== END 2017-11-10 11:49 | disposition hospice, inpatient (51) | DRG 377 ==
LOC: EC 23:52 → 6ICU 11-10 01:00
PROVIDERS: ADMIT Hospitalist; ATTEND Hospitalist
DX: K92.2 Gastrointestinal hemorrhage, unspecified (principal); J86.9 Pyothorax without fistula; J96.91 Respiratory failure, unspecified with hypoxia; J18.8 Other pneumonia, unspecified organism; D62 Acute posthemorrhagic anemia; C34.32 Malignant neoplasm of lower lobe, left bronchus or lung; J90 Pleural effusion, not elsewhere classified; E78.5 Hyperlipidemia, unspecified; I10 Essential (primary) hypertension; I48.0 Paroxysmal atrial fibrillation; J43.9 Emphysema, unspecified; K21.9 Gastro-esophageal reflux disease without esophagitis; L40.9 Psoriasis, unspecified; M19.90 Unspecified osteoarthritis, unspecified site; R10.9 Unspecified abdominal pain; R11.2 Nausea with vomiting, unspecified; Z51.5 Encounter for palliative care; Z66 Do not resuscitate; Z79.01 Long term (current) use of anticoagulants; Z90.710 Acquired absence of both cervix and uterus; Z87.891 Personal history of nicotine dependence; Z87.440 Personal history of urinary (tract) infections; Z86.010 Personal history of colon polyps; Z90.49 Acquired absence of other specified parts of digestive tract; Z88.8 Allergy status to other drugs, medicaments and biological substances; Z79.899 Other long term (current) drug therapy; Z79.82 Long term (current) use of aspirin; Z79.52 Long term (current) use of systemic steroids; Z80.0 Family history of malignant neoplasm of digestive organs; Z80.3 Family history of malignant neoplasm of breast; Z80.6 Family history of leukemia
CPT/HCPCS: 71045; 71046; 74018; 80053; 81001; 82140; 82550; 82553; 83605; 83690; 83735; 83880; 84100; 84484; 85025; 85610; 85730; 86850; 86900; 86901; 86920; 96361; 96374; 96375; 99285

== ENCOUNTER 2017-11-10 11:33 | Inpatient (IN) | payer MEDICAID ==
[~2017-11-10 11:33] MED LIST changes: +IPRATROPIUM-ALBUTEROL 3 ML NEB ONE; +LORazepam 2 MG/ML INJ ONE; +ONDANSETRON 4 MG/2 ML VIAL ONE; -Pre Op ABX Message 1 EACH MISC MISCELLANE ONE
[2017-11-10] MEDS ORDERED: ONDANSETRON 4 MG/2 ML VIAL IVP PRN (11:35)
[2017-11-10] MEDS ORDERED: SCOPOLAMINE 1.5MG/72HR PATCH TRANSDERM PRN (11:35)
[2017-11-10] MEDS ORDERED: ACETAMINOPHEN SUPPOSITORY 650 MG SUPP RECTAL PRN (11:35)
[2017-11-10] MEDS ORDERED: LORazepam 2 MG/ML INJ IV PRN (11:35)
[2017-11-10] MEDS ORDERED: BISACODYL 10 MG SUPP RECTAL PRN (11:40)
[2017-11-10] MEDS ORDERED: MORPHINE SULFATE (100 MG/2 ML) 100 MG in SODIUM CHLORIDE 0.9% 100 ML IV SCH (11:45)
[2017-11-10] MEDS ORDERED: ATROPINE OPHTH SOLN 1% 5ML BTL SUBLINGUAL PRN (19:50)
--- NOTE | 2017-11-20 13:47 | P.HPIM ---
History of Present Illness 77-year-old with us consul lung cancer is well-known to me with a day of from her previous hospital physician patient was transferred to [facility] but for her a loculated pleural effusion for possible VATS procedure and entrapped lung. Patient is high risk for any procedure. And patient was subsequently discharged from [facility] has seen Dr. Jacques plan was to start her on home hospice meantime patient started having GI bleed coffee- ground emesis as of which patient was admitted. Today special delivery worker discussed with the family and I talked to the family as well and patient will be made hospice and comfort care. 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 Past Anesthesia/Blood Transfusion Reactions: No Reported Reaction Smoking Status: Former smoker Additional Past Alcohol Use History / Comment(s): Patient was a smoker of three- quarter pack per day for 50 years and quit 2-3 weeks ago. She drinks occasionally and has 3 glasses of wine per week. She denies any marijuana street drug use. She is retired and lives at home with her . - Past Family History Father Family Medical History: Cancer Additional Family Medical History / Comment(s): Father had leukemia. Mother Family Medical History: Cancer Additional Family Medical History / Comment(s): Mother had breast cancer. Sister(s) Family Medical History: Cancer Additional Family Medical History / Comment(s): Sister had colon cancer. Medications and Allergies Home Medications Medication Instructions Recorded Confirmed Type Ezetimibe [Zetia] 10 mg PO DAILY 10/15/13 11/10/17 History Albuterol Sulfate [Proair Hfa] 2 puff INHALATION RT-Q6H PRN 10/26/17 11/10/17 History Aspirin EC [Ecotrin Low Dose] 81 mg PO HS 10/26/17 11/10/17 History Gemfibrozil [Lopid] 600 mg PO AC-BID 10/26/17 11/10/17 History Levofloxacin [Levaquin] 500 mg PO DAILY 10/26/17 11/10/17 History amLODIPine [Norvasc] 10 mg PO DAILY 10/26/17 11/10/17 History predniSONE See Taper PO DAILY 10/26/17 11/10/17 History Allergies Allergy/AdvReac Type Severity Reaction Status Date / Time benazepril HCl [From Lotrel] Allergy Swelling Verified 11/10/17 12:12 Physical Exam PHYSICAL EXAMINATION: GENERAL: Patient is alert severely lethargic HEENT: Pupils are round and equally reacting to light. EOMI. No scleral icterus. No conjunctival pallor. Normocephalic, atraumatic. No pharyngeal erythema. No thyromegaly. CARDIOVASCULAR: S1 and S2 present. No murmurs, rubs, or gallops. Tachycardic PULMONARY: Mild bibasilar crackles are appreciated ABDOMEN: Soft, nontender, nondistended, normoactive bowel sounds. No palpable organomegaly. MUSCULOSKELETAL: No joint swelling or deformity. EXTREMITIES: No cyanosis, clubbing, or pedal edema. NEUROLOGICAL: Gross neurological examination did not reveal any focal deficits. SKIN: No rashes. Assessment and Plan Plan: Assessment and Plan Plan: -Acute blood loss anemia from upper GI bleed -Recent postobstructive pneumonia -Squamous cell lung cancer -Loculated pleural effusion -Proximal atrial fibrillation -Hypertension
--- NOTE | 2017-11-20 13:49 | P.DS ---
Providers Date of admission: 11/10/17 11:50 Attending physician: Gerardo Jean Primary care physician: [facility] Course: Patient with history as, cell cancer presented with a GI bleed patient was subsequently made hospice subsequently please refer to nursing documentation for exact time and date of . Plan - Discharge Summary New Discharge Prescriptions: No Action Ezetimibe [Zetia] 10 mg PO DAILY Albuterol Sulfate [Proair Hfa] 2 puff INHALATION RT-Q6H PRN PRN Reason: Shortness Of Breath predniSONE See Taper PO DAILY Levofloxacin [Levaquin] 500 mg PO DAILY amLODIPine [Norvasc] 10 mg PO DAILY Gemfibrozil [Lopid] 600 mg PO AC-BID Aspirin EC [Ecotrin Low Dose] 81 mg PO HS Discharge Medication List Ezetimibe [Zetia] 10 mg PO DAILY 10/15/13 [History] Albuterol Sulfate [Proair Hfa] 2 puff INHALATION RT-Q6H PRN 10/26/17 [History] Aspirin EC [Ecotrin Low Dose] 81 mg PO HS 10/26/17 [History] Gemfibrozil [Lopid] 600 mg PO AC-BID 10/26/17 [History] Levofloxacin [Levaquin] 500 mg PO DAILY 10/26/17 [History] amLODIPine [Norvasc] 10 mg PO DAILY 10/26/17 [History] predniSONE See Taper PO DAILY 10/26/17 [History] Discharge Disposition: - Preliminary Cause of Preliminary Cause of : Squamous cell lung cancer, GI bleed
== END 2017-11-10 23:55 | disposition expired | DRG 951 ==
LOC: 6ICU 11:50 → 4MS4W 16:04
PROVIDERS: ADMIT Internal Medicine; ATTEND Internal Medicine
DX: Z51.5 Encounter for palliative care (principal); C34.90 Malignant neoplasm of unspecified part of unspecified bronchus or lung; K92.2 Gastrointestinal hemorrhage, unspecified; D62 Acute posthemorrhagic anemia; J90 Pleural effusion, not elsewhere classified; K21.9 Gastro-esophageal reflux disease without esophagitis; I10 Essential (primary) hypertension; J44.9 Chronic obstructive pulmonary disease, unspecified; E78.5 Hyperlipidemia, unspecified; M19.90 Unspecified osteoarthritis, unspecified site; I48.0 Paroxysmal atrial fibrillation; Z87.440 Personal history of urinary (tract) infections; Z86.010 Personal history of colon polyps; Z90.710 Acquired absence of both cervix and uterus; Z90.49 Acquired absence of other specified parts of digestive tract; Z87.891 Personal history of nicotine dependence; Z80.6 Family history of leukemia; Z80.3 Family history of malignant neoplasm of breast; Z80.0 Family history of malignant neoplasm of digestive organs; Z79.899 Other long term (current) drug therapy; Z87.01 Personal history of pneumonia (recurrent); Z79.52 Long term (current) use of systemic steroids; Z88.8 Allergy status to other drugs, medicaments and biological substances